=== PATIENT | female | born 1930 | race Caucasian/White ===

== ENCOUNTER 2018-09-14 09:27 | Emergency (ER) | payer MEDICARE, BC ==
--- NOTE | 2018-09-14 10:08 | ER Document Report ---
ED General - General Chief Complaint: Low Blood Pressure Stated Complaint: BLOOD PRESSURE PROBLEM Time Seen by Provider: 09/14/18 10:07 Primary Care Provider: MIKO LAM MD [Primary Care Provider] - Follow up as needed Notes: 87-year-old female patient sent over from pain management clinic for evaluation of cysts and hypotension. Patient on a fentanyl patch, oral pain medication. Has been feeling well for couple of days. Blood pressure was 75/40 and was diaphoretic in the office. Dr. Carroll sent her to the emergency department for urgent evaluation. Patient states that she has chronic pain. 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 Denies any worsening chest pain at this time. No cough. Does state that she may have a little bit of discomfort with urination. Chronic pain but at baseline. No other issues. Has a fentanyl patch on at this time. TRAVEL OUTSIDE OF THE [place] IN LAST 30 DAYS: No - HPI Onset: Just prior to arrival Onset/Duration: Gradual, Constant Quality of pain: Cramping Severity: Moderate - Related Data Allergies/Adverse Reactions: iodine Allergy (Verified 09/14/18 09:35) promethazine [From Phenergan] Allergy (Verified 09/14/18 09:35) Past Medical History - General Information source: Patient, Relative, [facility] Records - Social History Smoking Status: Never Smoker Frequency of alcohol use: None Drug Abuse: None Lives with: Family Family History: Reviewed & Not Pertinent Patient has suicidal ideation: No Patient has homicidal ideation: No - Past Medical History Cardiac Medical History: Reports: Hx Atrial Fibrillation, Hx Hypertension Renal/ Medical History: Denies: Hx Peritoneal Dialysis Musculoskeletal Medical History: Reports Hx Arthritis, Reports Hx Fibromyalgia Traumatic Medical History: Reports: Hx Fractures - lumbar spine - Immunizations Hx Diphtheria, Pertussis, Tetanus Vaccination: Yes Review of Systems - Review of Systems Notes: Constitutional: denies: Chills, Diaphoresis, Fever, Malaise, Weakness EENT: denies: Eye discharge, Blurred vision, Tearing, Double vision, Nose congestion, Nose discharge, Throat swelling, Mouth pain Cardiovascular: denies: Palpitations, Heart racing, Orthopnea, Dyspnea, Chest pain. + Hypotension Respiratory: denies: Cough, Hurts to breathe, Wheezing, Shortness of breath Gastrointestinal: denies: Abdominal pain, Diarrhea, Nausea, Vomiting, Black stools, bright red blood in stool Genitourinary: denies: Burning, Dysuria, Discharge, Frequency, Flank pain, Hematuria Musculoskeletal: denies: Joint pain, Joint swelling, Muscle pain, Muscle stiffness, + chronic back pain Hematologic/Lymphatic: denies: Anemia, Easy bleeding, Easy bruising, Blood clot s Neurological/Psychological: denies: Confusion, Dementia, Depression, Loss of consciousness Skin: No lesions, no masses, no skin breakdown, no abscesses. Diaphoresis reported Physical Exam - Vital signs Vitals: Temp Pulse Resp BP Pulse Ox 98.1 F 72 16 94/54 L 89 L 09/14/18 09:33 09/14/18 09:33 09/14/18 09:33 09/14/18 09:33 09/14/18 09:33 Interpretation: Hypotensive - General General appearance: Appears well, Alert - HEENT Head: Normocephalic, Atraumatic Eyes: Normal Pupils: PERRL Mucous membranes: Dry - Respiratory Respiratory status: No respiratory distress Chest status: Nontender Breath sounds: Normal Chest palpation: Normal - Cardiovascular Rhythm: Regular Heart sounds: Normal auscultation Murmur: No - Abdominal Inspection: Normal Distension: No distension Bowel sounds: Normal Tenderness: Nontender Organomegaly: No organomegaly - Back Back: Normal, Nontender - Extremities General upper extremity: Normal inspection, Nontender, Normal color, Normal ROM, Normal temperature General lower extremity: Normal inspection, Nontender, Normal color, Normal ROM, Normal temperature, Normal weight bearing. No: Antonieta's sign - Neurological Neuro grossly intact: Yes Cognition: Normal Orientation: AAOx4 Whiting Coma Scale Eye Opening: Spontaneous Wh[place] Coma Scale Verbal: Oriented Wh[place] Coma Scale Motor: Obeys Commands Zenia Coma Scale Total: 15 Speech: Normal Motor strength normal: LUE, RUE, LLE, RLE Sensory: Normal - Psychological Associated symptoms: Normal affect, Normal mood - Skin Skin Temperature: Warm Skin Moisture: Dry Skin Color: Normal Course - Re-evaluation Re-evalutation: 09/14/18 12:06 With blood pressures in the 70s at the doctor's office. At bedside I recorded a blood pressure of 79/60 by my own taking. Patient has a paced ventricular rhythm with a heart rate of 70. We will need to do blood cultures, lactate, start on IV fluids, cardiac work-up. Septic work-up and possible admit. Bedside temperature orally was 98.0. 09/14/18 12:07 Laboratory 09/14/18 09/14/18 09/14/18 09:55 09:55 09:55 WBC 6.3 RBC 4.25 Hgb 12.6 Hct 38.5 MCV 91 MCH 29.8 MCHC 32.8 RDW 15.9 H Plt Count 198 Seg Neutrophils % 75.7 Lymphocytes % 14.5 Monocytes % 8.5 Eosinophils % 0.9 Basophils % 0.4 Absolute Neutrophils 4.8 Absolute Lymphocytes 0.9 Absolute Monocytes 0.5 Absolute Eosinophils 0.1 Absolute Basophils 0.0 Sodium 144.0 Potassium 4.6 Chloride 99 Carbon Dioxide 32 H Anion Gap 13 BUN 24 H Creatinine 0.81 Est GFR ( Amer) > 60 Est GFR (Non-Af Amer) > 60 Glucose 77 Calcium 9.9 Total Bilirubin 0.5 Direct Bilirubin 0.3 Neonat Total Bilirubin Not Reportable Neonat Direct Bilirubin Not Reportable Neonat Indirect Bili Not Reportable AST 24 ALT 14 Alkaline Phosphatase 67 Creatine Kinase 29 L CK-MB (CK-2) 0.62 Troponin I < 0.012 Total Protein 7.7 Albumin 4.4 09/14/18 13:55 Patient is been observed here for quite some time. Her labs are fairly unremarkable. She had some hypotension when she first arrived. Was a little dry. Patient received 2 L of normal saline. Was initially orthostatic but now her orthostatic vital signs are normal. She does not appear to be in any significant distress. Her lactic acid is within normal limits. Her urine is unremarkable. She has a normal WBC count. At this time likely her hypotension is due to the narcotics for which she is on and dehydration. I feel comfortable discharging at this time in stable condition. She is upright and eating and in no acute distress. - Vital Signs Vital signs: Temp Pulse Resp BP Pulse Ox 98.1 F 72 12 111/59 L 94 09/14/18 09:33 09/14/18 09:33 09/14/18 12:31 09/14/18 13:36 09/14/18 12:31 - Laboratory Result Diagrams: 09/14/18 09:55 09/14/18 09:55 Laboratory results interpreted by me: 09/14/18 09/14/18 09/14/18 09:55 09:55 11:59 RDW 15.9 H Carbon Dioxide 32 H BUN 24 H Creatine Kinase 29 L Ur Leukocyte Esterase TRACE H Urine Ascorbic Acid 40 H Discharge - Discharge Clinical Impression: Dehydration, Transient hypotension Condition: Good Disposition: HOME, SELF-CARE Instructions: Hypotension ([facility]), Orthostatic Hypotension ([facility]), Dehydration ([facility]) Additional Instructions: Please continue with your regular medications as prescribed. Increase your fluid intake. Follow-up with your regular doctors. Return for worsening symptoms or concerns. Referrals: MIKO LAM MD [Primary Care Provider] - Follow up as needed
[2018-09-14] MEDS: NORMAL SALINE 1000 ML 1,000 ML IV PRN ×2 (10:20→11:08)
[2018-09-14 10:39] LABS: ABSOLUTE EOSINOPHILS # (AUTO) 0.1 10^3/uL (0.0-0.6); ABSOLUTE LYMPHOCYTES (AUTO) 0.9 10^3/uL (0.5-4.7); ABSOLUTE MONOCYTES (AUTO) 0.5 10^3/uL (0.1-1.4); ABSOLUTE NEUT (AUTO) 4.8 10^3/uL (1.7-8.2); BASOPHILS % (AUTO) 0.4 % (0-2); EOSINOPHILS % (AUTO) 0.9 % (0-6); HEMATOCRIT 38.5 % (36.0-47.0); HEMOGLOBIN 12.6 g/dL (12.0-15.5); LYMPHOCYTES % (AUTO) 14.5 % (13-45); MEAN CORPUSCULAR HEMOGLOBIN 29.8 pg (27.0-33.4); MEAN CORPUSCULAR HGB CONC 32.8 g/dL (32.0-36.0); MEAN CORPUSCULAR VOLUME 91 fl (80-97); MONOCYTES % (AUTO) 8.5 % (3-13); PLATELET COUNT 198 10^3/uL (150-450); RED BLOOD COUNT 4.25 10^6/uL (3.72-5.28); RED CELL DISTRIBUTION WIDTH 15.9 % (11.5-14.0); SEGMENTED NEUTROPHILS % (AUTO) 75.7 % (42-78); TOTAL CELLS COUNTED % (AUTO) 100 %; WHITE BLOOD COUNT 6.3 10^3/uL (4.0-10.5)
[2018-09-14 10:46] LABS: ALANINE AMINOTRANSFERASE 14 U/L (9-52); ALBUMIN 4.4 g/dL (3.5-5.0); ALKALINE PHOSPHATASE 67 U/L (38-126); ANION GAP 13 (5-19); ASPARTATE AMINO TRANSFERASE 24 U/L (14-36); BILIRUBIN,DIRECT 0.3 mg/dL (0.0-0.4); BILIRUBIN,TOTAL 0.5 mg/dL (0.2-1.3); BLOOD UREA NITROGEN 24 mg/dL (7-20); CALCIUM 9.9 mg/dL (8.4-10.2); CARBON DIOXIDE 32 mmol/L (22-30); CHLORIDE 99 mmol/L (98-107); CREATINE KINASE 29 U/L (30-135); GLUCOSE 77 mg/dL (75-110); POTASSIUM 4.6 mmol/L (3.6-5.0); TOTAL PROTEIN 7.7 g/dL (6.3-8.2)
[2018-09-14 10:58] LABS: CREATINE KINASE MB 0.62 ng/mL (<4.55)
[2018-09-14 11:05] LABS: TROPONIN I < 0.012 ng/mL
--- NOTE | 2018-09-14 11:20 | RADIOLOGY REPORT (SQ) ---
EXAM DESCRIPTION: CHEST SINGLE VIEW COMPLETED DATE/TIME: 09/14/2018 11:05 am REASON FOR STUDY: cp COMPARISON: None. EXAM PARAMETERS: NUMBER OF VIEWS: One view. TECHNIQUE: Single frontal radiographic view of the chest acquired. RADIATION DOSE: NA LIMITATIONS: None. FINDINGS: LUNGS AND PLEURA: No opacities, masses or pneumothorax. No pleural effusion. MEDIASTINUM AND HILAR STRUCTURES: No masses. Contour normal. HEART AND VASCULAR STRUCTURES: Cardiomegaly status post median sternotomy with mitral valve prosthesi s, CABG markers, and left chest multi lead pacer. BONES: Chronic fracture deformity of the proximal right humerus. Status post left shoulder arthropla sty. HARDWARE: None in the chest. OTHER: No other significant finding. IMPRESSION: Cardiomegaly without acute abnormality of the lungs in AP projection. TECHNICAL DOCUMENTATION: JOB ID: [id number] [employer]- All Rights Reserved Reading location - IP/workstation name: [email or web address]
[2018-09-14 12:54] LABS: APPEARANCE,URINE CLEAR; BILIRUBIN,URINE NEGATIVE (NEGATIVE); COLOR,URINE YELLOW; GLUCOSE, URINE NEGATIVE (NEGATIVE); KETONES,URINE NEGATIVE (NEGATIVE); LEUKOCYTE ESTERASE,URINE TRACE (NEGATIVE); NITRITE,URINE NEGATIVE (NEGATIVE); PROTEIN,URINE NEGATIVE (NEGATIVE); URINE SPECIFIC GRAVITY 1.013; UROBILINOGEN,URINE NEGATIVE mg/dL (<2.0)
[2018-09-14 14:05] VITALS: BP 111/57
== END 2018-09-14 14:42 | disposition home or self-care (01) ==
LOC: ER 09:27
DX: E86.0 Dehydration (principal); I95.9 Hypotension, unspecified; R30.0 Dysuria; I48.91 Unspecified atrial fibrillation; I10 Essential (primary) hypertension; G89.29 Other chronic pain
CPT/HCPCS: 99283; 96360; 96361; 36415; 87040; 87086; 82553; 82962; 82550; 85025; 87088; 80053; 81001; 84484; 87186; 83605; 71045; J7030

== ENCOUNTER 2019-11-24 13:30 | Emergency (ER) | payer MEDICARE, BC ==
--- NOTE | 2019-11-24 14:23 | ER Document Report ---
ED General - General Chief Complaint: Back Pain Stated Complaint: SHOULDER PAIN Primary Care Provider: MIKO LAM MD [ACTIVE STAFF] - Follow up as needed Mode of Arrival: Medic Information source: Patient, Relative Notes: Patient is a 88-year-old female presenting to the emergency department chief complaint of back pain and constipation. Patient states she was seen about a week and a half ago at another local hospital for same condition and was unsatisfied with the findings and the care and is here for further evaluation and treatment. Patient states she has been dealing with chronic back pain for a number of years. She states that she does have pain management. Patient denies nausea vomiting diarrhea cough or cold type symptoms. TRAVEL OUTSIDE OF THE [place] IN LAST 30 DAYS: No - Related Data Allergies/Adverse Reactions: bacitracin [From Neosporin ([id number])] Allergy (Verified 11/24/19 14:13) cephalexin Allergy (Verified 11/24/19 14:13) ciprofloxacin [From Cipro] Allergy (Verified 11/24/19 14:13) desipramine [From Norpramin] Allergy (Verified 11/24/19 14:13) iodine Allergy (Verified 11/24/19 14:13) neomycin [From Neosporin ([id number])] Allergy (Verified 11/24/19 14:13) polymyxin B [From Neosporin ([id number])] Allergy (Verified 11/24/19 14:13) promethazine [From Phenergan] Allergy (Verified 11/24/19 14:13) Sulfa (Sulfonamide Antibiotics) Allergy (Verified 11/24/19 14:13) codeine Adverse Reaction (Verified 11/24/19 14:13) Past Medical History - Social History Smoking Status: Unknown if Ever Smoked Family History: Reviewed & Not Pertinent - Past Medical History Cardiac Medical History: Reports: Hx Atrial Fibrillation, Hx Congestive Heart Failure, Hx Hypertension Renal/ Medical History: Denies: Hx Peritoneal Dialysis Musculoskeletal Medical History: Reports Hx Arthritis, Reports Hx Fibromyalgia Traumatic Medical History: Reports: Hx Fractures - lumbar spine - Immunizations Hx Diphtheria, Pertussis, Tetanus Vaccination: Yes Review of Systems - Review of Systems Notes: REVIEW OF SYSTEMS: CONSTITUTIONAL : Denies fever, chills, or sweats. Denies recent illness. EENT: Denies eye, ear, throat, or mouth pain or symptoms. Denies nasal or sinus congestion. CARDIOVASCULAR: Denies chest pain. RESPIRATORY: Denies cough, cold, or chest congestion. Denies shortness of breath, difficulty breathing, or wheezing. GASTROINTESTINAL: Denies abdominal pain. Denies nausea, vomiting, or diarrhea. Denies constipation. GENITOURINARY: Denies difficulty urinating, painful urination, burning, frequency, or blood in urine. MUSCULOSKELETAL: Denies neck or back pain or joint pain or swelling. SKIN: Denies rash or skin lesions. HEMATOLOGIC : Denies easy bruising or bleeding. NEUROLOGICAL: Denies altered mental status or loss of consciousness. Denies headache. Denies weakness or paralysis or loss of use of either side. Denies problems with gait or speech. Denies sensory or motor loss. PSYCHIATRIC: Denies suicidal or homicidal ideations 10 Systems are negative unless otherwise specified above Physical Exam - Vital signs Vitals: Temp Pulse Resp BP Pulse Ox 98.5 F 73 16 114/58 L 94 11/24/19 14:08 11/24/19 14:08 11/24/19 14:08 11/24/19 14:08 11/24/19 14:08 - Notes Notes: PHYSICAL EXAMINATION: GENERAL: Well-appearing, well-nourished and in no acute distress. HEAD: Atraumatic, normocephalic. EYES: Pupils equal round and reactive to light, extraocular movements intact, sclera anicteric, conjunctiva are normal. ENT: nares patent, oropharynx clear without exudates. Moist mucous membranes. NECK: Normal range of motion, supple without lymphadenopathy, no appreciable JVD LUNGS: Lungs clear to auscultation bilaterally and equal. No wheezes rales or rhonchi. HEART: Regular rate and rhythm without murmurs ABDOMEN: Soft, nontender, normal bowel sounds. No guarding, no rebound. No masses appreciated. EXTREMITIES: Active full range of motion, no pitting or edema. No cyanosis. 2+ pulses x4 NEUROLOGICAL: No focal neurological deficits. Moves all extremities spontaneously and on command. SKIN: Warm, Dry, and intact. Normal turgor, no rashes or lesions noted. Course - Re-evaluation Re-evalutation: 11/24/19 20:15 Patient has been maintained on a turn supervisor while in emergency department. The patient is remained stable without major decompensation. There was questionable small bowel obstruction on the acute abdominal series and recommendation was to have a CAT scan performed which was done which shows no signs of small bowel obstruction. I did discuss with the patient and her family the chronic nature of her back pain and the fact that since she is on a pain management contract no new narcotic prescriptions will be dispensed at this time. I recommend that the patient follow-up with her family physician and/or an orthopedist to address the chronic back issues. Patient is stable at time of discharge. - Vital Signs Vital signs: Temp Pulse Resp BP Pulse Ox 98.5 F 73 16 114/58 L 94 11/24/19 14:08 11/24/19 14:08 11/24/19 14:08 11/24/19 14:08 11/24/19 14:08 - Laboratory Result Diagrams: 11/24/19 13:47 11/24/19 13:47 Laboratory results interpreted by me: 11/24/19 11/24/19 13:47 14:44 RBC 3.69 L MCV 98 H RDW 19.8 H Lymph % (Auto) 10.8 L Seg Neutrophils % 80.0 H Urine Ascorbic Acid 20 H - Diagnostic Test Radiology reviewed: Reports reviewed Discharge - Discharge Clinical Impression: Chronic back pain Qualifiers: Back pain location: back pain in unspecified location Back pain laterality: bilateral Qualified Code(s): M54.9 - Dorsalgia, unspecified; G89.29 - Other chronic pain Constipation Qualifiers: Constipation type: slow transit constipation Qualified Code(s): K59.01 - Slow transit constipation Condition: Stable Disposition: HOME, SELF-CARE Instructions: Low Back Pain ([facility]), Muscle Strain ([facility]) Additional Instructions: ABDOMINAL PAIN: There are many causes of abdominal pain. Pain can mean a serious problem r equiring surgery (such as appendicitis). It can also be an innocent problem that goes away on its own (such as a viral infection). Often, time must pass to determine the cause of pain. The physician does not feel that hospitalization is necessary, at present. Things may change within the next 24 hours. Call the doctor or come back for re- examination if any problems occur, such as: (1) Pain that becomes more severe, steady, or becomes concentrated in one specific area. Also, pain that is more severe with movement or coughing. (2) Vomiting that persists or becomes more frequent. (3) Blood in the vomitus, urine, or bowel movements. Blood in the stool may have a tarry or black appearance. (4) Shaking chills or fever greater than 100 degrees F. (5) The abdomen becomes more distended or swollen. (6) Bowel movements cease. (7) Failure to improve as expected. NORMAL EXAM AND WORKUP: At this time, your examination and workup show no significant abnormality. No significant abnormal physical findings are noted. All laboratory, EKG, and imaging (x-ray, CT scans, ultrasound) studies that were ordered show no significant abnormality. Although your examination and all studies that were ordered showed no significant abnormal finding, there are no examinations and no studies that are 100% accurate. There is always the possibility that some abnormality could exist and not be detected with physical examination or within the limits and capabilities of laboratory and other studies. You should return or follow up as you were instructed on your visit today for further evaluation if your symptoms do not resolve. CONSTIPATION: Constipation is a common problem. It is especially likely as you get older. Constipation is a common cause of abdominal pain, but sometimes causes no symptoms at all. Causes of constipation include certain medications, dehydration, diets, inactivity, and low-fiber intake. Rarely, it can be a symptom of underlying disease. The physician has evaluated you for this. Avoid constipation by eating a diet high in fiber, fruits, and vegetables. Drink plenty of liquids. Get regular exercise. If possible, avoid constipating medicines like narcotic pain medication. Some vitamin tablets can cause constipation. Stool softeners may be needed for difficult cases. An excellent stool softener is Konsyl which is available at [place], and [place] drug store. Just add a teaspoon to a glass of pineapple or orange juice daily or twice a day if needed. Laxatives are useful for occasional constipation. You should use them only when necessary. Too-frequent use can make your bowels dependent on them. Some over the counter laxatives available without prescription are: Milk of Magnesia, 1-2 tablespoons twice a day Dulcolax, 5 mg pill or 10 mg suppository. Citrate of Magnesia, 4-5 ounces a day for a day or two For acute constipation, Fleet's Enemas and Dulcolax suppositories are helpful. Chronic, intermediate accountant use of laxatives or enemas is not a good idea. Your bowel may become dependant on them. You do not need to have a bowel movement every day. Many people do fine with a bowel movement every three or four days. You should call your doctor or return for re-evaluation if you pass blood in the stool, or if you develop fever or increasing abdominal pain. BULK LAXATIVES: Bulk laxatives make the stool softer and bulkier. They're useful for preventing constipation. You can choose between psyllium, methylcellulose, and polycarbophil. They are available without a prescription. Psyllium brand names include Konsyl, Metamucil, Perdiem, Effer-Syllium and Hydrocil. It's available as powder, flavored drink powder, or chewable. The usual dose of psyllium powder is one heaping teaspoon in water each morning, inc reasing to twice a day if needed. [place] juice can disguise the slightly grainy texture. Methylcellulose is marketed as Citrucel and other brands. The average dose is two grams in a cup of water one to three times a day. Polycarbophil is marketed as Fiber-Con. Take two tablets with a cup of water one to three times a day. LAXATIVE: A laxative agent has been prescribed for your condition. This should result in passage of stool within 12 hours. Some mild intestinal cramping is common as the hard stool begins to move. You may have loose or runny stools for a short time. Contact your doctor if there is severe cramping, vomiting, or passage of blood. Return for further care if this medicine fails to improve your condition. FOLLOW-UP CARE: If you have been referred to a physician for follow-up care, call the physicians office for an appointment as you were instructed or within the next two days. If you experience worsening or a significant change in your symptoms, notify the physician immediately or return to the Emergency Department at any time for re-evaluation. Referrals: MIKO LAM MD [ACTIVE STAFF] - Follow up as needed
[2019-11-24 15:14] LABS: APPEARANCE,URINE SLIGHTLY-CLOUDY; BILIRUBIN,URINE NEGATIVE (NEGATIVE); COLOR,URINE YELLOW; GLUCOSE, URINE NEGATIVE (NEGATIVE); KETONES,URINE NEGATIVE (NEGATIVE); LEUKOCYTE ESTERASE,URINE NEGATIVE (NEGATIVE); NITRITE,URINE NEGATIVE (NEGATIVE); PROTEIN,URINE NEGATIVE (NEGATIVE); URINE SPECIFIC GRAVITY 1.011; UROBILINOGEN,URINE NEGATIVE mg/dL (<2.0)
[2019-11-24 15:25] LABS: ABSOLUTE EOSINOPHILS # (AUTO) 0.1 10^3/uL (0.0-0.6); ABSOLUTE LYMPHOCYTES (AUTO) 0.7 10^3/uL (0.5-4.7); ABSOLUTE MONOCYTES (AUTO) 0.5 10^3/uL (0.1-1.4); ABSOLUTE NEUT (AUTO) 4.9 10^3/uL (1.7-8.2); BASOPHILS % (AUTO) 0.4 % (0-2); EOSINOPHILS % (AUTO) 1.3 % (0-6); LYMPHOCYTES % (AUTO) 10.8 % (13-45); MEAN CORPUSCULAR HEMOGLOBIN 32.5 pg (27.0-33.4); MEAN CORPUSCULAR HGB CONC 33.4 g/dL (32.0-36.0); MEAN CORPUSCULAR VOLUME 98 fl (80-97); MONOCYTES % (AUTO) 7.5 % (3-13); PLATELET COUNT 221 10^3/uL (150-450); RED BLOOD COUNT 3.69 10^6/uL (3.72-5.28); RED CELL DISTRIBUTION WIDTH 19.8 % (11.5-14.0); TOTAL CELLS COUNTED % (AUTO) 100 %; WHITE BLOOD COUNT 6.1 10^3/uL (4.0-10.5)
[2019-11-24 15:34] LABS: ANION GAP 7 (5-19); BLOOD UREA NITROGEN 13 mg/dL (7-20); CALCIUM 8.8 mg/dL (8.4-10.2); CARBON DIOXIDE 30 mmol/L (22-30); CHLORIDE 101 mmol/L (98-107); GLUCOSE 91 mg/dL (75-110); POTASSIUM 4.5 mmol/L (3.6-5.0)
[2019-11-24] MEDS ORDERED: OXYCODONE-ACETAMINOPHEN 5-325 MG TABLET PO ONE ×2 (16:04→20:17)
--- NOTE | 2019-11-24 16:40 | RADIOLOGY REPORT (SQ) ---
EXAM DESCRIPTION: T SPINE AP/LAT IMAGES COMPLETED DATE/TIME: 11/24/2019 4:00 pm REASON FOR STUDY: pain COMPARISON: None. NUMBER OF VIEWS: Two views. TECHNIQUE: AP and lateral radiographic images acquired of the thoracic spine. LIMITATIONS: None. FINDINGS: MINERALIZATION: Osteopenia. ALIGNMENT: Mild dextroconvex lateral curvature may be due in part to positioning or muscle spasm. VERTEBRAE: Age-indeterminate compression injury of the T11 vertebral body. Mild loss of T9 and T10 v ertebral body heights as well. DISCS: Multilevel disc space narrowing with osteophytes. HARDWARE: None in the spine. MEDIASTINUM AND SOFT TISSUES: Normal heart size and aortic contour. No soft tissue abnormality. VISUALIZED LUNG WAGONER: Clear. OTHER: Midline surgical changes and partially imaged transvenous pacer. IMPRESSION: Osteopenia. Age-indeterminate mild compression deformity of the T11 vertebral body with the appearance of mild wedging of the T9 and T10 vertebral bodies as well. TECHNICAL DOCUMENTATION: JOB ID: [id number] 2010 [email or web address]- All Rights Reserved Reading location - IP/workstation name: [email or web address]
--- NOTE | 2019-11-24 16:44 | RADIOLOGY REPORT (SQ) ---
EXAM DESCRIPTION: L SPINE WHOLE IMAGES COMPLETED DATE/TIME: 11/24/2019 4:00 pm REASON FOR STUDY: pain COMPARISON: None. NUMBER OF VIEWS: Five views including obliques. TECHNIQUE: AP, lateral, oblique, and sacral radiographic images acquired of the lumbar spine. LIMITATIONS: None. FINDINGS: MINERALIZATION: Osteopenia. SEGMENTATION: Normal. No transitional anatomy. ALIGNMENT: Dextroconvex lateral curvature centered at the L2 level. VERTEBRAE: Difficult to assess due to osteopenia and scoliotic curvature. There is an age-indetermin ate compression fracture of the L1 vertebral body with a mild compression deformity of the T11 verteb ral body. DISCS: Multilevel disc space narrowing with osteophytes. POSTERIOR ELEMENTS: Facet arthropathy is present. No discrete evidence of pars interarticularis defe ct. HARDWARE: None in the spine. PARASPINAL SOFT TISSUES: Normal. PELVIS: Intact as visualized. No fractures or worrisome bone lesions. SI joints intact. OTHER: No other significant finding. IMPRESSION: Osteopenia. Age indeterminate compression deformity of the L1 and T11 vertebral bodies. The lower lumbar vertebral bodies are difficult to assess due to degree of osteopenia and the prese nt scoliotic curvature. If significant clinical concern for osseous injury, recommend noncontrast CT imaging for improved osseous characterization. TECHNICAL DOCUMENTATION: JOB ID: [id number] 2010 [employer]- All Rights Reserved Reading location - IP/workstation name: [email or web address]
--- NOTE | 2019-11-24 16:52 | RADIOLOGY REPORT (SQ) ---
EXAM DESCRIPTION: ACUTE ABDOMEN SERIES IMAGES COMPLETED DATE/TIME: 11/24/2019 4:00 pm REASON FOR STUDY: pain COMPARISON: 04/24/2012 and 09/14/2018 NUMBER OF VIEWS: Four views. TECHNIQUE: Frontal chest, supine abdomen and upright/decubitus abdomen radiographic images acquired. LIMITATIONS: None. FINDINGS: CHEST: No focal consolidation, pleural effusion, or pneumothorax. Mild cardiomegaly witho ut central vascular congestion. Midline surgical changes in transvenous pacer. FREE AIR: No pneumoperitoneum. BOWEL GAS PATTERN: Gas is seen within multiple mildly prominent loops of small bowel with few scatter ed air-fluid levels. Gas and stool are seen to the level of the rectum without evidence of high-grad e obstruction. CALCIFICATIONS: No suspicious calcifications. HARDWARE: None in the abdomen. SOFT TISSUES: No gross mass or suggestion of organomegaly. BONES: Chronic right humeral neck fracture. Status post left shoulder arthroplasty. OTHER: No other significant finding. IMPRESSION: 1. Mildly prominent loops of gas and fluid filled small bowel noting what appears to be a focal collection within the right lower quadrant on supine imaging, concerning for developing smal l bowel obstruction. Consider CT imaging of the abdomen and pelvis for further characterization. 2. Right humerus fracture is similar to that seen on 2013 radiographs. TECHNICAL DOCUMENTATION: JOB ID: [id number] 2010 [employer]- All Rights Reserved Reading location - IP/workstation name: [email or web address]
[2019-11-24] MEDS ORDERED: DIPHENHYDRAMINE HCL 50 MG/ML VIAL IV ONE (17:29)
[2019-11-24] MEDS ORDERED: METHYLPREDNISOLONE INJ 125 MG/2 ML SDV IV ONE (17:30)
--- NOTE | 2019-11-24 19:48 | RADIOLOGY REPORT (SQ) ---
EXAM DESCRIPTION: CT ABD/PELVIS WITH IV ONLY IMAGES COMPLETED DATE/TIME: 11/24/2019 7:29 pm REASON FOR STUDY: SBO? COMPARISON: None. TECHNIQUE: CT scan of the abdomen and pelvis performed using helical scanning technique with dynamic intravenous contrast injection. No oral contrast. Images reviewed with lung, soft tissue, and bone windows. Reconstructed coronal and sagittal MPR images reviewed. Delayed images for evaluation of the urinary system also acquired. All images stored on PACS. All CT scanners at this facility use dose modulation, iterative reconstruction, and/or weight based d osing when appropriate to reduce radiation dose to as low as reasonably achievable (ALARA). [facility]: Dose Right [facility]: CareDose [facility]: Dose Right [facility]: Teradose 4D [facility]: [employer] CONTRAST TYPE AND DOSE: contrast/concentration: Isovue 350.00 mmol/ml; Total Contrast Delivered: 88. 0 ml; Total Saline Delivered: 72.0 ml RENAL FUNCTION: GFR > 60. RADIATION DOSE: CT Rad equipment meets quality standard of care and radiation dose reduction techniq ues were employed. CTDIvol: 18.2 - 20.6 mGy. DLP: 2149 mGy-cm.. LIMITATIONS: Motion. FINDINGS: LOWER CHEST: Prosthetic mitral valve. Pacemaker. LIVER: Normal size. No masses. Fatty change. No dilated ducts. SPLEEN: Normal size. No focal lesions. PANCREAS: No masses. No significant calcifications. No adjacent inflammation or peripancreatic fluid collections. Pancreatic duct not dilated. GALLBLADDER: No identified stones by CT criteria. No inflammatory changes to suggest cholecystitis. ADRENAL GLANDS: No significant masses or asymmetry. RIGHT KIDNEY AND URETER: No solid masses. 7 mm lower pole stone. No hydronephrosis or hydroureter . LEFT KIDNEY AND URETER: No solid masses. No significant calcifications. No hydronephrosis or hydr oureter. AORTA AND VESSELS: No aneurysm. RETROPERITONEUM: No retroperitoneal adenopathy, hemorrhage or masses. BOWEL AND PERITONEAL CAVITY: No masses or inflammatory changes. No free fluid or peritoneal masses. APPENDIX: Not visualized. PELVIS: No mass. No free fluid. Normal bladder. ABDOMINAL WALL: Small fat containing umbilical hernia. BONES: Several compression fractures, most notable at L 4. All appear chronic without significant re tropulsion. OTHER: No other significant finding. IMPRESSION: No acute findings. Chronic compression fractures. Nonobstructing stone right kidney. TECHNICAL DOCUMENTATION: JOB ID: [id number] Quality ID # [id number]: Final reports with documentation of one or more dose reduction techniques (e.g., Au tomated exposure control, adjustment of the mA and/or kV according to patient size, use of iterative reconstruction technique) 2010 [employer]- All Rights Reserved Reading location - IP/workstation name: [email or web address]
[2019-11-24 20:52] VITALS: BP 142/74
== END 2019-11-24 20:58 | disposition home or self-care (01) ==
LOC: ER 13:30
DX: K59.01 Slow transit constipation (principal); M54.9 Dorsalgia, unspecified; G89.29 Other chronic pain; Z88.8 Allergy status to other drugs, medicaments and biological substances; Z88.1 Allergy status to other antibiotic agents; Z88.2 Allergy status to sulfonamides; I48.91 Unspecified atrial fibrillation; I50.9 Heart failure, unspecified; I11.0 Hypertensive heart disease with heart failure
CPT/HCPCS: 99285; 96374; 96375; 36415; 85025; 80048; 81001; 74022; 72110; 72070; 74177; J1200; J2930; A9270

== ENCOUNTER 2019-12-27 16:44 | Emergency (ER) | payer MEDICARE, BC ==
--- NOTE | 2019-12-27 17:51 | ER Document Report ---
ED Medical Screen (RME) - General Chief Complaint: Pain All Over Stated Complaint: BACK PAIN Time Seen by Provider: 12/27/19 17:43 Primary Care Provider: AMY LOVETT MD [Primary Care Provider] - Follow up as needed Mode of Arrival: Medic Information source: Patient, Relative Notes: 89-year-old female presents to ED for complaint of pain abdomen chest ribs back. According to her sister she has had pain and been sick for couple months. She states she been hurting all over. Couple weeks ago she was admitted to [facility] and had multiple test and was discharged. She states she is actually gotten much worse over the last week. She states she is going to the bathroom very frequently her sister is with her and she states she is going to the bathroom much more frequent than usual she states her primary care doctor is Dr. Lovett. States she has no nausea or vomiting she does have extensive medical history. I have greeted and performed a rapid initial assessment of this patient. A comprehensive ED assessment and evaluation of the patient, analysis of test results and completion of medical decision making process will be conducted by an additional ED providers. TRAVEL OUTSIDE OF THE [place] IN LAST 30 DAYS: No - Related Data Allergies/Adverse Reactions: bacitracin [From Neosporin ([id number])] Allergy (Verified 12/02/19 11:25) cephalexin Allergy (Verified 12/02/19 11:25) ciprofloxacin [From Cipro] Allergy (Verified 12/02/19 11:25) desipramine [From Norpramin] Allergy (Verified 12/02/19 11:25) Iodinated Contrast Media [Iodinated Contrast- Oral and IV Dye] Allergy (Verified 12/02/19 11:25) iodine Allergy (Verified 12/02/19 11:25) miconazole [From Neosporin AF] Allergy (Verified 12/02/19 11:25) neomycin [From Neosporin ([id number]-cys-[id number])] Allergy (Verified 12/02/19 11:25) polymyxin B [From Neosporin (nfu-mnz-tcxam)] Allergy (Verified 12/02/19 11:25) promethazine [From Phenergan] Allergy (Verified 12/02/19 11:25) Sulfa (Sulfonamide Antibiotics) Allergy (Verified 12/02/19 11:25) codeine Adverse Reaction (Verified 12/02/19 11:25) Past Medical History - Past Medical History Cardiac Medical History: Reports: Hx Atrial Fibrillation, Hx Congestive Heart Failure, Hx Coronary Artery Disease - HIGH CHOLESTEROL, Hx Heart Attack, Hx Hypertension Pulmonary Medical History: Reports: Hx Bronchitis Denies: Hx Asthma, Hx COPD, Hx Pneumonia Neurological Medical History: Denies: Hx Cerebrovascular Accident, Hx Seizures Renal/ Medical History: Denies: Hx Peritoneal Dialysis Musculoskeltal Medical History: Reports Hx Arthritis, Reports Hx Fibromyalgia Traumatic Medical History: Reports: Hx Fractures - lumbar spine - Immunizations Hx Diphtheria, Pertussis, Tetanus Vaccination: Yes Physical Exam - Vital signs Vitals: Temp Pulse BP Pulse Ox 98.1 F 70 113/93 H 90 L 12/27/19 17:04 12/27/19 17:04 12/27/19 17:04 12/27/19 17:04 Course - Vital Signs Vital signs: Temp Pulse Resp BP Pulse Ox 98.1 F 70 113/93 H 90 L 12/27/19 17:04 12/27/19 17:04 12/27/19 17:04 12/27/19 17:04 Doctor's Discharge - Discharge Referrals: AMY LOVETT MD [Primary Care Provider] - Follow up as needed
--- NOTE | 2019-12-27 18:30 | RADIOLOGY REPORT (SQ) ---
EXAM DESCRIPTION: CHEST 2 VIEWS IMAGES COMPLETED DATE/TIME: 12/27/2019 6:08 pm REASON FOR STUDY: Rib pain chest pain abdomen pain back pain COMPARISON: 09/14/2018. EXAM PARAMETERS: NUMBER OF VIEWS: two views TECHNIQUE: Digital Frontal and Lateral radiographic views of the chest acquired. RADIATION DOSE: NA LIMITATIONS: none FINDINGS: LUNGS AND PLEURA: No opacities, masses or pneumothorax. No pleural effusion. MEDIASTINUM AND HILAR STRUCTURES: No masses or contour abnormalities. HEART AND VASCULAR STRUCTURES: Heart normal size. No evidence for failure. BONES: No acute findings. 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 HARDWARE: Sternotomy wires, coronary bypass markers, prosthetic valve, and pacemaker. Left shoulder hardware. OTHER: No other significant finding. IMPRESSION: NO ACUTE RADIOGRAPHIC FINDING IN THE CHEST. TECHNICAL DOCUMENTATION: JOB ID: [id number] 2010 [employer]- All Rights Reserved Reading location - IP/workstation name: [email or web address]
[2019-12-27 18:55] LABS: ABSOLUTE EOSINOPHILS # (AUTO) 0.1 10^3/uL (0.0-0.6); ABSOLUTE LYMPHOCYTES (AUTO) 0.9 10^3/uL (0.5-4.7); ABSOLUTE MONOCYTES (AUTO) 0.6 10^3/uL (0.1-1.4); ABSOLUTE NEUT (AUTO) 5.8 10^3/uL (1.7-8.2); BASOPHILS % (AUTO) 0.2 % (0-2); EOSINOPHILS % (AUTO) 1.1 % (0-6); HEMATOCRIT 41.5 % (36.0-47.0); HEMOGLOBIN 13.7 g/dL (12.0-15.5); LYMPHOCYTES % (AUTO) 11.9 % (13-45); MEAN CORPUSCULAR HGB CONC 33.1 g/dL (32.0-36.0); MEAN CORPUSCULAR VOLUME 100 fl (80-97); MONOCYTES % (AUTO) 8.3 % (3-13); PLATELET COUNT 212 10^3/uL (150-450); RED BLOOD COUNT 4.17 10^6/uL (3.72-5.28); RED CELL DISTRIBUTION WIDTH 16.6 % (11.5-14.0); SEGMENTED NEUTROPHILS % (AUTO) 78.5 % (42-78); TOTAL CELLS COUNTED % (AUTO) 100 %; WHITE BLOOD COUNT 7.4 10^3/uL (4.0-10.5)
[2019-12-27 18:55] LABS: APPEARANCE,URINE CLEAR; BILIRUBIN,URINE NEGATIVE (NEGATIVE); COLOR,URINE YELLOW; GLUCOSE, URINE NEGATIVE (NEGATIVE); KETONES,URINE NEGATIVE (NEGATIVE); LEUKOCYTE ESTERASE,URINE NEGATIVE (NEGATIVE); NITRITE,URINE NEGATIVE (NEGATIVE); PROTEIN,URINE NEGATIVE (NEGATIVE); URINE SPECIFIC GRAVITY 1.023
[2019-12-27 19:04] LABS: PROTHROMBIN TIME 13.4 SEC (11.4-15.4)
[2019-12-27 19:12] LABS: ALBUMIN 4.3 g/dL (3.5-5.0); ALKALINE PHOSPHATASE 99 U/L (38-126); ANION GAP 8 (5-19); ASPARTATE AMINO TRANSFERASE 23 U/L (14-36); BILIRUBIN,DIRECT 0.4 mg/dL (0.0-0.4); BILIRUBIN,TOTAL 0.7 mg/dL (0.2-1.3); BLOOD UREA NITROGEN 17 mg/dL (7-20); CALCIUM 9.5 mg/dL (8.4-10.2); CARBON DIOXIDE 34 mmol/L (22-30); CHLORIDE 97 mmol/L (98-107); GLUCOSE 114 mg/dL (75-110); POTASSIUM 4.2 mmol/L (3.6-5.0); TOTAL PROTEIN 7.3 g/dL (6.3-8.2)
[2019-12-27] MEDS ORDERED: ACETAMINOPHEN 325 MG TABLET PO ONE (19:16)
--- NOTE | 2019-12-27 21:34 | ER Document Report ---
ED General - General Chief Complaint: Pain All Over Stated Complaint: BACK PAIN Time Seen by Provider: 12/27/19 17:43 Primary Care Provider: AMY HERNÁNDEZ MD [Primary Care Provider] - Follow up as needed Mode of Arrival: Medic TRAVEL OUTSIDE OF THE [place] IN LAST 30 DAYS: No - HPI Notes: 89-year-old female presents with pain. Patient states that she has a chronic pain in multiple areas, states that she has had fibromyalgia for 40 years, "pain is not new". Patient states that she has pain in her right shoulder, it is from an old fracture, she is not eligible for surgery due to her heart. She also states bilateral hip pain, which feels like a squeezing sensation, worse when she sits or stands. She is additionally having pain to the right side of her chest, states that it radiates to her breast and to her ribs, sometimes up to her neck. Patient states that she came to the emergency department today because her pain was not relieved by her usual pain medication, she states that she has pain meds that she can take every 5 hours, took it today. Patient additionally states that she has "heart problems", that her "heart is not good". She denies any chest pain currently. She states that because of the pain, she has shortness of breath and wheezing. Cough with some yellow phlegm as well. Due to the pain, she states she is mostly just been laying around for weeks. She takes an aspirin daily, no other blood thinners. She also reports a history of an aortic aneurysm, she states that she had it evaluated a few weeks ago. She states that she has been told cannot do anything about it, she undergoes surveillance. She states that she has a CPAP machine, she does not wear oxygen chronically, but oxygen helps. She additionally states that she was recently admitted in [place] and the conclusion was the same. Patient has an iodine allergy noted. Addressed this with her. She states that she once had itchy eyes. She states that she has had eye multiple times and has not had that reaction recently. She typically receives a Benadryl before scan. - Related Data Allergies/Adverse Reactions: bacitracin [From Neosporin ([id number]-[id number])] Allergy (Verified 12/02/19 11:25) cephalexin Allergy (Verified 12/02/19 11:25) ciprofloxacin [From Cipro] Allergy (Verified 12/02/19 11:25) desipramine [From Norpramin] Allergy (Verified 12/02/19 11:25) iodine Allergy (Verified 12/02/19 11:25) miconazole [From Neosporin AF] Allergy (Verified 12/02/19 11:25) neomycin [From Neosporin ([id number]-zhs-jwrzk)] Allergy (Verified 12/02/19 11:25) polymyxin B [From Neosporin (hwj-sfa-izexm)] Allergy (Verified 12/02/19 11:25) promethazine [From Phenergan] Allergy (Verified 12/02/19 11:25) Sulfa (Sulfonamide Antibiotics) Allergy (Verified 12/02/19 11:25) codeine Adverse Reaction (Verified 12/02/19 11:25) Iodinated Contrast Media [Iodinated Contrast- Oral and IV Dye] Adverse Reaction (Verified 12/27/19 21:53) Home Medications: centrum, d3, aspirin, carafate, trazodone, potassium, omeprazole, duloxetine, magnesium, biotin, gabapentin, fentanyl patch, vit c, simvastatin, entresto, metoprolol, furosemide, isosorbide Past Medical History - General Information source: Patient, Relative - Social History Smoking Status: Never Smoker Chew tobacco use (# tins/day): No Frequency of alcohol use: None Drug Abuse: None Family History: Reviewed & Not Pertinent - Past Medical History Cardiac Medical History: Reports: Hx Atrial Fibrillation, Hx Congestive Heart Failure, Hx Coronary Artery Disease - HIGH CHOLESTEROL, Hx Heart Attack, Hx Hypertension Pulmonary Medical History: Reports: Hx Bronchitis Denies: Hx Asthma, Hx COPD, Hx Pneumonia Neurological Medical History: Denies: Hx Cerebrovascular Accident, Hx Seizures Renal/ Medical History: Denies: Hx Peritoneal Dialysis Musculoskeletal Medical History: Reports Hx Arthritis, Reports Hx Fibromyalgia Traumatic Medical History: Reports: Hx Fractures - lumbar spine - Immunizations Hx Diphtheria, Pertussis, Tetanus Vaccination: Yes Hx Pneumococcal Vaccination: 04/06/14 Review of Systems - Review of Systems Constitutional: denies: Fever EENT: No symptoms reported Cardiovascular: denies: Chest pain Respiratory: Short of breath Gastrointestinal: denies: Abdominal pain Genitourinary: Frequency Musculoskeletal: Back pain, Joint pain, Muscle pain Skin: No symptoms reported Neurological/Psychological: denies: Headaches Physical Exam - Vital signs Vitals: Temp Pulse BP Pulse Ox 98.1 F 70 113/93 H 90 L 12/27/19 17:04 12/27/19 17:04 12/27/19 17:04 12/27/19 17:04 - General General appearance: Appears well, Alert In distress: None - HEENT Head: Normocephalic, Atraumatic Extraocular movements intact: Yes Pupils: PERRL Neck: Normal - Respiratory Respiratory status: No respiratory distress Chest status: Tender - Generalized wherever palpated Breath sounds: Other - Diminished at bases - Cardiovascular Rhythm: Regular Murmur: Yes Normal capillary refill: Yes - Abdominal Inspection: Obese Distension: No distension Tenderness: Nontender - Extremities General lower extremity: Other - Tenderness to essentially all areas palpated. No: Edema - Neurological Neuro grossly intact: Yes Cognition: Normal Orientation: AAOx4 Motor strength normal: LUE, RUE, LLE, RLE Sensory: Normal - Psychological Associated symptoms: Normal affect - Skin Skin Temperature: Warm Notes: No erythema or swelling to right breast Course - Re-evaluation Re-evalutation: 89-year-old female here for main complaint of pain, chronic pain to multiple areas, on chronic opioid prescription for this. However most concerning is her reported shortness of breath and the description of the pain pattern in her chest. Given her immobility, I would be concerned that she has developed PE. Reviewed records, she has a known thoracic aortic aneurysm, if this is growing that could potentially be contributing her symptoms as well. CTA chest has been ordered to evaluate. She was given Benadryl for the side effect from the dye which she has experienced remotely in the past. She is not tachycardic, though she has a pace maker, not ICD, confirmed on chest x-ray. She is actually quite well-appearing in bed, resting comfortably, no acute distress. She does not appear to be overtly fluid overloaded, will obtain BNP. Sounds like she has ?PRN oxygen at home, 90 to 92% on room air, will start her on nasal cannula, currently no respiratory distress. Will trial low-dose of morphine to see if this helps with her pain while we continue our work-up. She had a laboratory evaluation done from the triage process, no marked abnormalities, troponin n egative. EKG has been ordered. 12/27/19 23:31 CTA is negative for PE. However her known aneurysm has grown in size, now 6.8 cm. Question if this is causing some sort of mass-effect causing the shortness of breath. Patient reference that she has been evaluated in [place] before, I have paged the cardiothoracic/vascular team at [facility] through the transfer center. 12/27/19 23:44 I discussed patient's presentation and CT findings with Dr. Guaman with cardiothoracic/vascular surgery at [facility]. He states that given the size, it would warrant repair, although not emergently. No extravasation is a good sign. However likely unable to take on her case there and not certain if she is an ideal operative candidate. Suggested I ask patient her surgical desires. Ultimately no transfer at this time. 12/27/19 23:49 Went in to discuss CT findings and conversation with Dr. Guaman with patient. Patient states that she sees Dr. Moore with [facility]. She states that she has been told before that she would not be a surgical candidate, her "heart wouldn't stand the surgery". Patient states that her pain has improved. 12/27/19 23:56 Will CTA chest dissection protocol 12/28/19 00:13 I discussed with our radiologist who read the per report, he states that he is able to see some of the aorta and there is currently no dissection, he will addend his report. Will cancel repeat CTA. 12/28/19 01:36 Troponin is negative x2 12/28/19 01:47 I wanted to update patient on all results. She currently voices no complaints. I again rediscussed with her the aneurysm. She again voices understanding that she knows that she is not a surgical candidate. I encouraged her to have very close follow-up with her primary care doctor and additionally call her an/syq 13 nav/c2 operator in the morning. Patient does not have a ride until the morning, she will be discharged at this time and remain in room until her ride can calm. She was discharged in stable condition. - Vital Signs Vital signs: Temp Pulse Resp BP Pulse Ox 98.7 F 69 17 143/64 H 98 12/27/19 19:40 12/27/19 19:40 12/28/19 00:00 12/27/19 22:28 12/28/19 00:00 - Laboratory Result Diagrams: 12/27/19 18:20 12/27/19 18:20 Laboratory results interpreted by me: 12/27/19 12/27/19 12/27/19 16:25 18:20 18:20 MCV 100 H RDW 16.6 H Lymph % (Auto) 11.9 L Seg Neutrophils % 78.5 H Chloride 97 L Carbon Dioxide 34 H Glucose 114 H NT-Pro-B Natriuret Pep Urine Urobilinogen 2.0 H Urine Ascorbic Acid 40 H 12/27/19 18:20 MCV RDW Lymph % (Auto) Seg Neutrophils % Chloride Carbon Dioxide Glucose NT-Pro-B Natriuret Pep 1710 H Urine Urobilinogen Urine Ascorbic Acid - Diagnostic Test Radiology reviewed: Image reviewed, Reports reviewed - EKG Interpretation by Me Additional EKG results interpreted by me: EKG is interpreted by me. Ventricular paced rhythm, rate 70s. Wide QRS as expected. No overt ST segment elevation. Discharge - Discharge Clinical Impression: Chronic pain Qualifiers: Chronic pain type: other chronic pain Qualified Code(s): G89.29 - Other chronic pain Thoracic aortic aneurysm (TAA) Qualifiers: Presence of rupture: without rupture Qualified Code(s): I71.2 - Thoracic aortic aneurysm, without rupture Condition: Stable Disposition: HOME, SELF-CARE Additional Instructions: Please have very close follow-up with your primary care doctor. Additionally please call your an/syq 13 nav/c2 operator in the morning to discuss results from today. Ret urn to the emergency department for any concerning worsening symptoms. Referrals: AMY HERNÁNDEZ MD [Primary Care Provider] - Follow up as needed
[2019-12-27] MEDS ORDERED: MORPHINE SULFATE 10 MG/ML INJ IV ONE ×2 (21:49→21:58)
[2019-12-27] MEDS ORDERED: DIPHENHYDRAMINE HCL 50 MG/ML VIAL IV ONE ×2 (21:49→21:58)
--- NOTE | 2019-12-27 23:20 | RADIOLOGY REPORT (SQ) ---
CLINICAL INDICATION: SOB, immobility, eval PE. also has >5cm TAA. . TECHNIQUE: CT arteriography was obtained of the chest with multiplanar MIP and/or 3-D angiographic reconstructions. This exam was performed according to our departmental dose-optimization program, which includes automated exposure control, adjustment of the mA and/or kV according to patient size and/or use of iterative reconstruction techniques. COMPARISON: November 13, 2014. CORRELATION: None. FINDINGS: Adequate contrast bolus. Average Hounsfield unit measurement within main pulmonary artery segment of 376. Artifact from venous opacification. There is no evidence of pulmonary embolus. Thoracic aorta is aneurysmally dilated measuring 6.8 cm anteroposteriorly, previously 5.8 cm. This is a surgical lesion by size criteria. It is not opacified by intravascular contrast. Vascular calcification. The heart is enlarged with postsurgical change. No pericardial effusion. No bulky mediastinal adenopathy. The lungs are grossly clear. No consolidation or edema. No effusion or pneumothorax. Chronic parenchymal changes. Visualized abdominal contents demonstrate nonobstructing nephrolithiasis. Possible choledocholithiasis, series 3 image 129. Visualized bones demonstrate age-appropriate osteoarthritis. Demineralization. Postsurgical change left shoulder. Old posttraumatic change right shoulder IMPRESSION: Artifact from the patient's arm. No evidence of pulmonary embolus. Aneurysm of the ascending thoracic aorta at 6.8 cm, previously 5.8 cm. This was and is a surgical lesion by size criteria. No evidence of extravasation. If the patient is a potential surgical candidate, then cardiothoracic surgery consult is advised.
[2019-12-27] MEDS ORDERED: NORMAL SALINE 250 ML IV ONE (23:59)
--- NOTE | 2019-12-28 01:40 | EKG REPORT ---
SEVERITY:- ABNORMAL ECG - AFIB/FLUTTER AND VENTRICULAR-PACED RHYTHM : Confirmed by: María Young MD 28-Dec-2019 01:39:38
[2019-12-28] MEDS ORDERED: MORPHINE SULFATE 10 MG/ML INJ IV ONE (06:45)
[2019-12-28 08:36] VITALS: BP 155/79
== END 2019-12-28 08:30 | disposition home or self-care (01) ==
LOC: ER 16:44
DX: G89.29 Other chronic pain (principal); M79.10 Myalgia, unspecified site; I71.2 Thoracic aortic aneurysm, without rupture; M54.9 Dorsalgia, unspecified; I48.91 Unspecified atrial fibrillation; I50.9 Heart failure, unspecified; I11.0 Hypertensive heart disease with heart failure; Z79.891 Long term (current) use of opiate analgesic; I25.2 Old myocardial infarction
CPT/HCPCS: 93005; 96376; 99285; 96374; 96375; 36415; 87086; 85025; 85610; 85730; 87088; 80053; 81001; 84484; 83880; 71046; 71275; 93010; A9270; J1200; J2270 ×2; J7050; 87186

== ENCOUNTER 2020-02-04 22:33 | Inpatient (IN) | payer MEDICARE, BC ==
--- NOTE | 2020-02-04 23:03 | ER Document Report ---
ED Medical Screen (RME) - General Chief Complaint: Abdominal Pain Stated Complaint: ABDOMINAL PAIN Time Seen by Provider: 02/04/20 22:39 Primary Care Provider: AMY HERNÁNDEZ MD [Primary Care Provider] - Follow up as needed Notes: Patient presents complaining of epigastric pain for the past month. Patient states that around 4 PM today her pain started to worsen. Patient reports shortness of breath chronically although that seems to be more severe today as well. Patient denies any nausea vomiting or diarrhea. Patient denies any cough. Patient states that she did have a swallow study yesterday. Patient rep orts a history of hypertension AAA, pacemaker with GERD chronic back pain and sleep apnea for which she wears a CPAP. I have greeted and performed a rapid initial assessment of this patient. A comprehensive ED assessment and evaluation of the patient, analysis of test results and completion of the medical decision making process will be conducted by additional ED providers. TRAVEL OUTSIDE OF THE [place] IN LAST 30 DAYS: No - Related Data Allergies/Adverse Reactions: bacitracin [From Neosporin ([id number])] Allergy (Verified 12/02/19 11:25) cephalexin Allergy (Verified 12/02/19 11:25) ciprofloxacin [From Cipro] Allergy (Verified 12/02/19 11:25) desipramine [From Norpramin] Allergy (Verified 12/02/19 11:25) iodine Allergy (Verified 12/02/19 11:25) miconazole [From Neosporin AF] Allergy (Verified 12/02/19 11:25) neomycin [From Neosporin (syv-mcq-gmvkl)] Allergy (Verified 12/02/19 11:25) polymyxin B [From Neosporin (zoj-fys-pekbh)] Allergy (Verified 12/02/19 11:25) promethazine [From Phenergan] Allergy (Verified 12/02/19 11:25) Sulfa (Sulfonamide Antibiotics) Allergy (Verified 12/02/19 11:25) codeine Adverse Reaction (Verified 12/02/19 11:25) Iodinated Contrast Media [Iodinated Contrast- Oral and IV Dye] Adverse Reaction (Verified 12/27/19 21:53) Past Medical History - Past Medical History Cardiac Medical History: Reports: Hx Atrial Fibrillation, Hx Congestive Heart Failure, Hx Coronary Artery Disease - HIGH CHOLESTEROL, Hx Heart Attack, Hx Hypertension Pulmonary Medical History: Reports: Hx Bronchitis Denies: Hx Asthma, Hx COPD, Hx Pneumonia Neurological Medical History: Denies: Hx Cerebrovascular Accident, Hx Seizures Renal/ Medical History: Denies: Hx Peritoneal Dialysis Musculoskeltal Medical History: Reports Hx Arthritis, Reports Hx Fibromyalgia Traumatic Medical History: Reports: Hx Fractures - lumbar spine Past Surgical History: Reports: Hx Appendectomy, Hx Cardiac Surgery, Hx Hysterectomy, Hx Kidney (Renal Surgery), Hx Orthopedic Surgery - bilateral knee, L shoulder replacement - Immunizations Hx Diphtheria, Pertussis, Tetanus Vaccination: Yes Physical Exam - Respiratory Respiratory status: Tachypnea - Mildly tachypneic, oxygen saturation 87 on room air, oxygen applied at 2 L nasal cannula - Abdominal Inspection: Morbidly Obese Tenderness: Tender - Tenderness to upper abdominal area left upper quadrant, right upper quadrant, epigastric area Doctor's Discharge - Discharge Referrals: AMY HERNÁNDEZ MD [Primary Care Provider] - Follow up as needed
[2020-02-04 23:15] LABS: ABSOLUTE EOSINOPHILS # (AUTO) 0.1 10^3/uL (0.0-0.6); ABSOLUTE LYMPHOCYTES (AUTO) 0.7 10^3/uL (0.5-4.7); ABSOLUTE MONOCYTES (AUTO) 0.3 10^3/uL (0.1-1.4); ABSOLUTE NEUT (AUTO) 4.3 10^3/uL (1.7-8.2); BASOPHILS % (AUTO) 0.4 % (0-2); EOSINOPHILS % (AUTO) 1.2 % (0-6); HEMATOCRIT 37.2 % (36.0-47.0); HEMOGLOBIN 12.6 g/dL (12.0-15.5); LYMPHOCYTES % (AUTO) 12.7 % (13-45); MEAN CORPUSCULAR HEMOGLOBIN 33.8 pg (27.0-33.4); MEAN CORPUSCULAR HGB CONC 33.8 g/dL (32.0-36.0); MEAN CORPUSCULAR VOLUME 100 fl (80-97); MONOCYTES % (AUTO) 5.9 % (3-13); PLATELET COUNT 155 10^3/uL (150-450); RED BLOOD COUNT 3.72 10^6/uL (3.72-5.28); RED CELL DISTRIBUTION WIDTH 14.1 % (11.5-14.0); SEGMENTED NEUTROPHILS % (AUTO) 79.8 % (42-78); TOTAL CELLS COUNTED % (AUTO) 100 %; WHITE BLOOD COUNT 5.3 10^3/uL (4.0-10.5)
[2020-02-04 23:28] LABS: ARTERIAL BLOOD H2CO3 1.45 mmol/L (1.05-1.35); ARTERIAL BLOOD HCO3 32.2 mmol/L (20-24); ARTERIAL BLOOD O2 SATURATION 89.9 % (94-98); ARTERIAL BLOOD PCO2 48.1 mmHg (35-45); ARTERIAL BLOOD PH 7.44 (7.35-7.45); ARTERIAL BLOOD PO2 55.9 mmHg (80-100); ARTERIAL BLOOD TOTAL CO2 33.6 mmol/L (21-25)
[2020-02-04 23:28] LABS: ALBUMIN 4.3 g/dL (3.5-5.0); ALKALINE PHOSPHATASE 71 U/L (38-126); ANION GAP 10 (5-19); ASPARTATE AMINO TRANSFERASE 66 U/L (14-36); BILIRUBIN,DIRECT 0.7 mg/dL (0.0-0.4); BILIRUBIN,TOTAL 1.3 mg/dL (0.2-1.3); BLOOD UREA NITROGEN 15 mg/dL (7-20); CALCIUM 9.2 mg/dL (8.4-10.2); CARBON DIOXIDE 30 mmol/L (22-30); CHLORIDE 97 mmol/L (98-107); GLUCOSE 111 mg/dL (75-110); POTASSIUM 5.8 mmol/L (3.6-5.0); TOTAL PROTEIN 7.8 g/dL (6.3-8.2)
[2020-02-04 23:33] LABS: ARTERIAL BLOOD FIO2 ROOM AIR
--- NOTE | 2020-02-04 23:34 | ER Document Report ---
ED GI/ - General Chief Complaint: Abdominal Pain Stated Complaint: ABDOMINAL PAIN Time Seen by Provider: 02/04/20 22:39 Primary Care Provider: AMY HERNÁNDEZ MD [Primary Care Provider] - Follow up as needed Mode of Arrival: Medic Information source: Patient Notes: 02/04/20 23:27 - ED Nursing Note by JORGE CHICAS Acct Num: [id number] : 1930 Patient Age: 89 Pt arrives to ER today by EMS via stretcher for c/o mid-epigastric pain. Pt stat es that she does have a history of GERD and that it is the same feeling but more intense then normal. Pt had a swallow study done yesterday and has a follow up appointment on 02/09. Pt states that the pain has continued to worsen she took her medication but there was no relief. Pt cannot remember the name of the medication. Pt states that "I feel like the pain is going to kill me." Upon arrival to ER pt O2 sat was 89%, pt placed on 2L O2 NC O2 sat remaining above 95% now. Pt denies wearing oxygen at home. Pt aaox4, skin warm and dry, respirations e/u, speaking in clear and coherent sentences. Placed on monitor. ED Medical Screen ([facility] notes) - General Chief Complaint: Abdominal Pain Stated Complaint: ABDOMINAL PAIN Time Seen by Provider: 02/04/20 22:39 Primary Care Provider: AMY HERNÁNDEZ MD [Primary Care Provider] - Follow up as needed Notes: Patient presents complaining of epigastric pain for the past month. Patient states that around 4 PM today her pain started to worsen. Patient reports shortness of breath chronically although that seems to be more severe today as well. Patient denies any nausea vomiting or diarrhea. Patient denies any cough. Patient states that she did have a swallow study yesterday. Patient reports a history of hypertension AAA, pacemaker with GERD chronic back pain and sleep apnea for which she wears a CPAP. MY NOTES 89 year old female arrives with chief complaint of epigastric pain for 1 month. Around 1600 today her pain got worse. Patient denies any black tarry stools are nausea or vomiting. She has a past medical history consistent for chronic back pain constipation and thoracic aortic aneurysm. Patient also has GERD and anemia; she also has a pacemaker and uses CPAP for sleep apnea as per above. Patient reports she had been at this hospital as well as [place] several times over the past month but no one can find out why she is having upper abdominal pain. She was there "at [facility] yesterday and had a barium swallow and she was discharged because they report they cannot find out why she was having belly pain" [place]. She last ate her only meal today around 1600 which was eggs and coffee and toast. KUB was taken upon arrival which revealed contrast. Patient does not use oxygen at home TRAVEL OUTSIDE OF THE [place] IN LAST 30 DAYS: No - HPI Patient complains to provider of: Abdominal pain Onset: Other - this month Timing/Duration: Persistent Quality of pain: Achy Severity at maximum: Moderate Severity in ED: Moderate Pain Level: 3 Location: RUQ - Related Data Allergies/Adverse Reactions: bacitracin [From Neosporin ([id number])] Allergy (Verified 12/02/19 11:25) cephalexin Allergy (Verified 12/02/19 11:25) ciprofloxacin [From Cipro] Allergy (Verified 12/02/19 11:25) desipramine [From Norpramin] Allergy (Verified 12/02/19 11:25) iodine Allergy (Verified 12/02/19 11:25) miconazole [From Neosporin AF] Allergy (Verified 12/02/19 11:25) neomycin [From Neosporin ([id number])] Allergy (Verified 12/02/19 11:25) polymyxin B [From Neosporin ([id number])] Allergy (Verified 12/02/19 11:25) promethazine [From Phenergan] Allergy (Verified 12/02/19 11:25) Sulfa (Sulfonamide Antibiotics) Allergy (Verified 12/02/19 11:25) codeine Adverse Reaction (Verified 12/02/19 11:25) Iodinated Contrast Media [Iodinated Contrast- Oral and IV Dye] Adverse Reaction (Verified 12/27/19 21:53) Past Medical History - General Information source: Patient - Social History Smoking Status: Never Smoker Cigarette use (# per day): No Chew tobacco use (# tins/day): No Smoking Education Provided: No Frequency of alcohol use: None Family History: Reviewed & Not Pertinent - Past Medical History Cardiac Medical History: Reports: Hx Atrial Fibrillation, Hx Congestive Heart Failure, Hx Coronary Artery Disease - HIGH CHOLESTEROL, Hx Heart Attack, Hx Hypertension Pulmonary Medical History: Reports: Hx Bronchitis Denies: Hx Asthma, Hx COPD, Hx Pneumonia Neurological Medical History: Denies: Hx Cerebrovascular Accident, Hx Seizures Renal/ Medical History: Denies: Hx Peritoneal Dialysis Musculoskeletal Medical History: Reports Hx Arthritis, Reports Hx Fibromyalgia Traumatic Medical History: Reports: Hx Fractures - lumbar spine Past Surgical History: Reports: Hx Appendectomy, Hx Cardiac Surgery, Hx Hyster ectomy, Hx Kidney (Renal Surgery), Hx Orthopedic Surgery - bilateral knee, L shoulder replacement - Immunizations Hx Diphtheria, Pertussis, Tetanus Vaccination: Yes Hx Pneumococcal Vaccination: 04/06/14 Review of Systems - Review of Systems Constitutional: No symptoms reported EENT: No symptoms reported Cardiovascular: No symptoms reported Respiratory: No symptoms reported Gastrointestinal: See HPI, Abdominal pain Genitourinary: No symptoms reported Female Genitourinary: No symptoms reported Musculoskeletal: No symptoms reported Skin: No symptoms reported Hematologic/Lymphatic: No symptoms reported Neurological/Psychological: No symptoms reported Physical Exam - Vital signs Vitals: Temp 98.2 F 02/04/20 22:33 Interpretation: Normal - General General appearance: Appears well, Alert - HEENT Head: Normocephalic, Atraumatic Eyes: Normal Pupils: PERRL - Respiratory Respiratory status: No respiratory distress Chest status: Nontender Breath sounds: Normal Chest palpation: Normal - Cardiovascular Rhythm: Regular Heart sounds: Normal auscultation Murmur: No - Abdominal Inspection: Obese Distension: No distension Bowel sounds: Hyperactive Tenderness: Tender - Of both the right upper quadrant and left upper quadrant on motion and palpation Organomegaly: No organomegaly - Rectal Hemorrhoids: Other - deferred - Genitourinary Bimanuel exam: Other - deferred - Back Back: Normal, Nontender - Extremities General upper extremity: Normal inspection, Nontender, Normal color, Normal ROM, Normal temperature General lower extremity: Normal inspection, Nontender, Normal color, Normal ROM, Normal temperature, Normal weight bearing. No: Antonieta's sign - Neurological Neuro grossly intact: Yes Cognition: Normal Orientation: AAOx4 Zenia Coma Scale Eye Opening: Spontaneous [place] Coma Scale Verbal: Oriented [place] Coma Scale Motor: Obeys Commands Zenia Coma Scale Total: 15 Speech: Normal Motor strength normal: LUE, RUE, LLE, RLE Sensory: Normal - Psychological Associated symptoms: Normal affect, Normal mood - Skin Skin Temperature: Warm Skin Moisture: Dry Skin Color: Normal Course - Vital Signs Vital signs: Temp Pulse Resp BP Pulse Ox 98.2 F 87 L 02/04/20 22:33 02/04/20 22:59 - Laboratory Result Diagrams: 02/04/20 22:47 02/04/20 22:47 Laboratory results interpreted by me: 02/04/20 02/04/20 02/04/20 22:47 22:47 22:47 MCV 100 H MCH 33.8 H RDW 14.1 H Lymph % (Auto) 12.7 L Seg Neutrophils % 79.8 H Carbonic Acid ABG pCO2 ABG pO2 ABG HCO3 ABG Total CO2 ABG O2 Saturation Potassium 5.8 H Chloride 97 L Glucose 111 H Direct Bilirubin 0.7 H AST 66 H NT-Pro-B Natriuret Pep 2120 H 02/04/20 23:10 MCV MCH RDW Lymph % (Auto) Seg Neutrophils % Carbonic Acid 1.45 H ABG pCO2 48.1 H ABG pO2 55.9 L ABG HCO3 32.2 H ABG Total CO2 33.6 H ABG O2 Saturation 89.9 L Potassium Chloride Glucose Direct Bilirubin AST NT-Pro-B Natriuret Pep - Diagnostic Test Radiology reviewed: Reports reviewed - CT scan reveals interstitial of patient he is to lungs with no reason for abdominal pain at this time. - EKG Interpretation by Me EKG shows normal: Sinus rhythm Rate: Normal Rhythm: A.Fib - 70 bpm A. fib flutter and V paced complexes and this was read by myself and machine. Critical Care Note - Critical Care Note Comments: I spoke with Dr. Mohinder Hubbard and he advises admission for this patient. Discharge - Discharge Clinical Impression: Hyperkalemia, Hypoxia, COVID-19 virus test result unknown Abdominal pain Qualifiers: Abdominal location: right upper quadrant Qualified Code(s): R10.11 - Right upper quadrant pain Condition: Stable Disposition: ADMITTED INPATIENT Admitting Provider: Stevie (Hospitalist) Unit Admitted: Medical Floor - Is a medical perforation Instructions: COVID-19 Guidance for Persons Under Investigation Additional Instructions: Transfer to Covid floor Referrals: AMY HERNÁNDEZ MD [Primary Care Provider] - Follow up as needed
[2020-02-04] MEDS ORDERED: MORPHINE SULFATE 10 MG/ML INJ IV ONE (23:49)
[2020-02-04] MEDS ORDERED: ONDANSETRON HCL INJ/PF 4 MG/2 ML SDV IV ONE (23:50)
--- NOTE | 2020-02-05 00:40 | RADIOLOGY REPORT (SQ) ---
ACUTE ABDOMINAL SERIES: 02/04/2020 11:38 PM CDT COMPARISON: CTA of the chest from 12/27/2019 TECHNIQUE: A PA view of the chest was obtained with upright and supine views of the abdomen. HISTORY: 89-year old with abdominal pain. FINDINGS: The cardiomediastinal silhouette is enlarged. No pneumothorax is seen. There are minimal bibasilar airspace opacities with trace effusions. Midline sternotomy changes are seen. And there is a prosthetic heart valve noted, likely mitral. A dual-lead left-sided pacemaker is seen. There is a left shoulder hemiarthroplasty noted. There is evidence of a remote fracture to the proximal right humerus. The visualized bowel gas pattern is nonspecific and nonobstructive. No free air is seen beneath the hemidiaphragms. No abnormal intraabdominal calcifications are seen. There are no findings to suggest organomegaly. There is oral contrast noted throughout the visualized colon. IMPRESSION: There are minimal bibasilar airspace opacities with trace effusions. The bowel gas pattern is nonobstructive and nonspecific.
[2020-02-05] MEDS ORDERED: SODIUM POLYSTYRENE SULFONATE 15 GM/60 ML PO ONE (00:43)
--- NOTE | 2020-02-05 01:32 | RADIOLOGY REPORT (SQ) ---
CT ABDOMEN AND PELVIS WITHOUT INTRAVENOUS CONTRAST: 02/05/2020 12:25 AM CDT HISTORY: 89-year old with concern for barium swallow. COMPARISON: None available TECHNIQUE: Axial contiguous images were obtained from the lung bases to the proximal femurs without intravenous contrast administered. Evaluation is limited by some barium given to the patient previously. Sagittal and coronal reconstructions were also obtained and reviewed. This exam was performed according to our departmental dose-optimization program, which includes automated exposure control, adjustment of the mA and/or KV according to the patient's size and/or use of iterative reconstruction technique. FINDINGS: The cardiac silhouette is enlarged. There are bibasilar groundglass airspace opacities. Coronary artery calcifications are seen. Evaluation of the solid organs is limited by the lack of intravenous contrast. Evaluation is also limited by hyperdense oral contrast given to the patient previously causing significant streak artifact. The visualized hepatic parenchyma is unremarkable. The gallbladder demonstrates no evidence of calcified gallstones. The spleen is within normal limits of size. The pancreas is unremarkable. The bilateral adrenal glands appear unremarkable. Both kidneys demonstrate no evidence of hydronephrosis. No renal or ureteral calculi are seen. The urinary bladder is mildly distended, and appears grossly unremarkable. The uterus is not visualized and is likely surgically absent. The stomach is not well distended. The small bowel loops appear unremarkable. No pericolonic inflammatory stranding is seen. The appendix is not visualized. There is no evidence of pneumoperitoneum or free fluid. The aorta and IVC appear normal in size. There is mild atherosclerotic calcification of aorta and into the iliac arteries. No significantly enlarged lymph nodes are seen in the abdomen or pelvis. Review of the bone show no evidence of any suspicious lytic or blastic lesions. Multilevel degenerative changes are seen within the lumbar spine. There is a scoliotic curvature of the thoracolumbar spine, convex to the left side. IMPRESSION: No acute abdominal process is seen though evaluation is significantly limited by the lack of intravenous contrast and hyperdense oral contrast. This causes significant streak artifact and limits evaluation. There are groundglass airspace opacities within the lung bases which may reflect edema or infection.
[2020-02-05] MEDS ORDERED: BUMETANIDE INJ/PF 1 MG/4 ML SDV IV ONE (01:47)
[2020-02-05] MEDS ORDERED: FAMOTIDINE INJ/PF 20 MG/2 ML SDV IV ONE (01:50)
[2020-02-05] MEDS ORDERED: DEXAMETHASONE SOD PHOS INJ 10 MG/1 ML VIAL IV ONE (01:51)
[2020-02-05] MEDS ORDERED: GUAIFENESIN SYRP 200 MG/10 ML UDC PO PRN (02:14)
[2020-02-05 02:51] LABS: C-REACTIVE PROTEIN 13.4 mg/L (<10.0)
[2020-02-05] MEDS ORDERED: AZITHROMYCIN INJ 500 MG VIAL IV ONE (03:24)
[2020-02-05] MEDS: AZITHROMYCIN 500 MG in DEXTROSE 5%-WATER 250 ML IV SCH ×2 (03:53→21:34)
[2020-02-05 04:42] LABS: APPEARANCE,URINE SLIGHTLY-CLOUDY; BILIRUBIN,URINE NEGATIVE (NEGATIVE); COLOR,URINE YELLOW; GLUCOSE, URINE NEGATIVE (NEGATIVE); KETONES,URINE NEGATIVE (NEGATIVE); LEUKOCYTE ESTERASE,URINE NEGATIVE (NEGATIVE); NITRITE,URINE NEGATIVE (NEGATIVE); PROTEIN,URINE 30 mg/dL (NEGATIVE); URINE SPECIFIC GRAVITY 1.021
[2020-02-05 04:44] LABS: A TYPE INFLUENZA AG NEGATIVE (NEGATIVE); B INFLUENZA AG NEGATIVE (NEGATIVE)
--- NOTE | 2020-02-05 04:56 | PDOC H&P ---
History of Present Illness Admission Date/PCP: 02/05/2020 01:29 AMY HERNÁNDEZ MD Patient complains of: Acute respiratory failure with hypoxia History of Present Illness: LIBBY COTTON is a 89 year old female who presented to the emergency room with a 1 month history of abdominal pain. She admitted numerous intermittent episodes of epigastric pain over the course of the last month. She has been evaluated for this abdominal pain several times at different locations with different providers. Her current episode of abdominal pain began suddenly at about 4 PM on 02/04/2020. The pain was constant and moderate in intensity without radiation. Her pain is associated with an increase in her chronic dyspnea. She denies other associated or accompanying signs and symptoms. She denies identification of any aggravating or ameliorating factors for her pain. In the emergency room she had an unremarkable abdominal pain evaluation, but on a CT of the abdomen and pelvis the lower portion of the chest revealed bilateral lower lobe groundglass infiltrates. Patient was noted to be hypoxic on room air and required supplemental oxygen at 2 L/min to maintain an adequate oxygen saturation. A COVID-19 test was performed and the patient was subsequently admitted to the hospital for further evaluation and treatment. 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, Other - 6.8 cm ATAA recently evaluated @ [facility], patient not a surgical candidate Pulmonary Medical History: Reports: Bronchitis, Sleep Apnea, Other - Chronic dyspnea Denies: Asthma, Chronic Obstructive Pulmonary Disease (COPD), Pneumonia EENT Medical History: Denies: Cataracts, Ears - Hearing aids Neurological Medical History: Denies: Hemorrhagic CVA, Ischemic CVA, Seizures Endocrine Medical History: Reports: Obesity Denies: Diabetes Mellitus Type 1, Diabetes Mellitus Type 2, Hyperthyroidism, Hypothyroidism Renal/ Medical History: Reports: Nephrolithiasis Denies: Chronic Kidney Disease Malignancy Medical History: Reports: None GI Medical History: Reports: Gastroesophageal Reflux Disease Denies: Cirrhosis, Hepatitis, Peptic Ulcer Disease Musculoskeltal Medical History: Reports: Arthritis, Fibromyalgia, Other - C hronic pain syndrome Skin Medical History: Denies: Eczema, Psoriasis Psychiatric Medical History: Reports: General Anxiety Disorder Denies: Alcohol Dependency, Substance Abuse, Tobacco Dependency Traumatic Medical History: Reports: None Hematology: Reports: Anemia Denies: Bleeding Tendencies Infectious Medical History: Reports: None Past Surgical History Past Surgical History: Reports: Appendectomy, Hysterectomy, Knee Replacement, Orthopedic Surgery - bilateral TKR, L shoulder replacement, Valve Replacement - Mitral valve Social History Information Source: Patient Lives with: Spouse/Significant other Smoking Status: Never Smoker Electronic Cigarette use?: No Frequency of Alcohol Use: None Hx Recreational Drug Use: No Drugs: None Hx Prescription Drug Abuse: No - Advance Directive Resuscitation Status: Full Code Surrogate healthcare decision maker:: Sarah Dent Family History Family History: Arthritis, DM, Hypertension, Malignancy Parental Family History Reviewed: Yes Children Family History Reviewed: No Sibling(s) Family History Reviewed.: Yes Medication/Allergy Home Medications: Oxycodone HCl [Oxy-Ir 5 mg Tablet] 5 mg PO Q6 PRN #14 tablet 04/24/12 Alprazolam 0.25 mg PO TID PRN 03/05/18 Aspirin [Aspirin 325 mg Tablet] 325 mg PO DAILY 03/05/18 Calcium Carbonate/Vitamin D3 [Calcium 600-Vit D3 200 Tablet] 1 each PO DAILY 03/05/18 Duloxetine HCl [Cymbalta] 60 mg PO DAILY 03/05/18 Fentanyl 1 each TD .Q3DAYS 03/05/18 Furosemide [Lasix] 20 mg PO QHS 03/05/18 Furosemide [Lasix] 80 mg PO QAM 03/05/18 Gabapentin [Neurontin 300 mg Capsule] 300 mg PO Q12 03/05/18 Hydrocodone/Acetaminophen [Hydrocodone-Acetamin 7.5-300] 1 each PO Q4 PRN 03/05/18 Linaclotide [Linzess 145 Mcg Capsule] 145 mcg PO Q48H 03/05/18 Lisinopril [Prinivil] 2.5 mg PO QAM 03/05/18 Magnesium Oxide 400 mg PO BID 03/05/18 Metoprolol Succinate [Toprol Xl] 12.5 mg PO QAM 03/05/18 Nitroglycerin 0.4 mg SL PRN PRN 03/05/18 Omeprazole 40 mg PO BID 03/05/18 Potassium Chloride 20 meq PO BID 03/05/18 Sacubitril/Valsartan [Entresto 24 mg/26 mg Tablet] 1 tab PO BID 03/05/18 Simvastatin [Zocor 10 mg Tablet] 10 mg PO QHS 03/05/18 Sucralfate [Carafate 1 gm Tablet] 1 gm PO TID 03/05/18 Trazodone HCl 50 mg PO QHS 03/05/18 Allergies/Adverse Reactions: bacitracin [From Neosporin ([id number])] Allergy (Verified 12/02/19 11:25) cephalexin Allergy (Verified 12/02/19 11:25) ciprofloxacin [From Cipro] Allergy (Verified 12/02/19 11:25) desipramine [From Norpramin] Allergy (Verified 12/02/19 11:25) iodine Allergy (Verified 12/02/19 11:25) miconazole [From Neosporin AF] Allergy (Verified 12/02/19 11:25) neomycin [From Neosporin ([id number])] Allergy (Verified 12/02/19 11:25) polymyxin B [From Neosporin ([id number])] Allergy (Verified 12/02/19 11:25) promethazine [From Phenergan] Allergy (Verified 12/02/19 11:25) Sulfa (Sulfonamide Antibiotics) Allergy (Verified 12/02/19 11:25) codeine Adverse Reaction (Verified 12/02/19 11:25) Iodinated Contrast Media [Iodinated Contrast- Oral and IV Dye] Adverse Reaction (Verified 12/27/19 21:53) Review of Systems Constitutional: ABSENT: chills, fever(s) Eyes: ABSENT: visual disturbances, other - Eye pain Ears: ABSENT: hearing changes, other - Ear pain Nose, Mouth, and Throat: ABSENT: headache(s), sore throat Cardiovascular: ABSENT: chest pain, palpitations Respiratory: PRESENT: as per HPI, dyspnea - Chronic. ABSENT: cough Gastrointestinal: PRESENT: as per HPI, abdominal pain, nausea, vomiting. ABSENT: constipation, diarrhea, dysphagia, hematemesis Genitourinary: ABSENT: dysuria, hematuria Musculoskeletal: PRESENT: back pain - Chronic. ABSENT: joint swelling Integumentary: ABSENT: pruritus, rash Neurological: ABSENT: confusion, convulsions, focal weakness, memory loss, syncope Psychiatric: ABSENT: anxiety, depression Endocrine: ABSENT: cold intolerance, heat intolerance Hematologic/Lymphatic: ABSENT: easy bleeding, easy bruising Allergic/Immunologic: ABSENT: seasonal rhinorrhea Physical Exam Vital Signs: Temp Pulse Resp BP Pulse Ox 98.2 F 87 L 02/04/20 22:33 02/04/20 22:59 General appearance: PRESENT: no acute distress, cooperative, other - On supplemental oxygen via nasal cannula at the time of evaluation Head exam: PRESENT: atraumatic, normocephalic Eye exam: PRESENT: conjunctiva pink. ABSENT: conjunctival injection, scleral icterus Ear exam: PRESENT: normal external ear exam. ABSENT: bleeding, drainage Mouth exam: PRESENT: dry mucosa, neck supple Neck exam: ABSENT: thyromegaly, tracheal deviation Respiratory exam: PRESENT: clear to auscultation kevin, symmetrical, unlabored Cardiovascular exam: PRESENT: RRR. ABSENT: clicks, gallop, rubs Pulses: PRESENT: normal radial pulses, normal dorsalis pedis pul Vascular exam: PRESENT: normal capillary refill. ABSENT: pallor Rectal exam: PRESENT: deferred Extremities exam: ABSENT: joint swelling, pedal edema Musculoskeletal exam: ABSENT: deformity, dislocation Neurological exam: PRESENT: alert, oriented to person, oriented to place, oriented to time, oriented to situation, CN II-XII grossly intact. ABSENT: motor sensory deficit Psychiatric exam: PRESENT: appropriate affect, normal mood Skin exam: PRESENT: dry, intact, warm. ABSENT: jaundice, rash, urticaria Results Laboratory Results: 02/04/20 22:47 02/04/20 22:47 02/04/20 02/04/20 02/04/20 22:47 22:47 23:10 WBC 5.3 RBC 3.72 Hgb 12.6 Hct 37.2 MCV 100 H MCH 33.8 H MCHC 33.8 RDW 14.1 H Plt Count 155 Seg Neutrophils % 79.8 H Carbonic Acid 1.45 H HCO3/H2CO3 Ratio 22:1 ABG pH 7.44 ABG pCO2 48.1 H ABG pO2 55.9 L ABG HCO3 32.2 H ABG O2 Saturation 89.9 L ABG Base Excess 7.0 FiO2 ROOM AIR Sodium 137.4 Potassium 5.8 H Chloride 97 L Carbon Dioxide 30 Anion Gap 10 BUN 15 Creatinine 0.52 Est GFR ( Amer) > 60 Glucose 111 H Calcium 9.2 Magnesium 2.1 Total Bilirubin 1.3 AST 66 H Alkaline Phosphatase 71 Total Protein 7.8 Albumin 4.3 Lipase 77.7 02/04/20 02/04/20 22:47 22:47 Troponin I < 0.012 NT-Pro-B Natriuret Pep 2120 H Impressions: Acute Abdomen Series 02/04/20 23:00 IMPRESSION: There are minimal bibasilar airspace opacities with trace effusions. The bowel gas pattern is nonobstructive and nonspecific. Abdomen/Pelvis CT 02/04/20 23:43 IMPRESSION: No acute abdominal process is seen though evaluation is significantly limited by the lack of intravenous contrast and hyperdense oral contrast. This causes significant streak artifact and limits evaluation. There are groundglass airspace opacities within the lung bases which may reflect edema or infection. Assessment and Plan - Diagnosis (1) Community acquired bilateral lower lobe pneumonia Is this a current diagnosis for this admission?: Yes (2) Acute respiratory failure with hypoxia Is this a current diagnosis for this admission?: Yes (3) Person under investigation for COVID-19 Is this a current diagnosis for this admission?: Yes (4) Hypertension Qualifiers: Hypertension type: essential hypertension Qualified Code(s): I10 - Essential (primary) hypertension Is this a current diagnosis for this admission?: Yes (5) Hyperlipidemia Qualifiers: Hyperlipidemia type: unspecified Qualified Code(s): E78.5 - Hyperlipidemia, unspecified Is this a current diagnosis for this admission?: Yes (6) Thoracic ascending aortic aneurysm Is this a current diagnosis for this admission?: Yes (7) Gastroesophageal reflux disease with esophagitis without hemorrhage Is this a current diagnosis for this admission?: Yes (8) Obstructive sleep apnea Is this a current diagnosis for this admission?: Yes (9) Generalized anxiety disorder Is this a current diagnosis for this admission?: Yes (10) Abdominal pain Qualifiers: Abdominal location: epigastric Qualified Code(s): R10.13 - Epigastric pain Is this a current diagnosis for this admission?: Yes - Plan Summary Summary: Patient will be admitted to the medical floor where she will receive routine supportive and symptomatic cares. She will receive supplemental oxygen via nasal cannula as needed to maintain an adequate oxygen saturation level. She will receive dexamethasone 6 mg IV daily after the initial 10 mg IV dose in the emergency room. She will be continued on CPAP while sleeping and resting during the day. She will receive morphine sulfate 2 to 4 mg IV every 2 hours as needed for pain. She will receive Ativan 1 mg IV every 4 hours as needed for anxiety or restlessness. She will receive a cardiac diet. - Time Time Spent with patient: Less than 15 minutes Medications reviewed and adjusted accordingly: Yes Anticipated Discharge Disposition: Home with Home Health Anticipated Discharge Timeframe: Undetermined - Inpatient Certification Based on my medical assessment, after consideration of the patient's comorbidities, presenting symptoms, or acuity I expect that the services needed warrant INPATIENT care.: Yes I certify that my determination is in accordance with my understanding of Medicare's requirements for reasonable and necessary INPATIENT services [42 CFR 412.3e].: Yes Medical Necessity: Significant Comorbidiites Make Outpatient Treatment Too Risky, Need Close Monitoring Due to Risk of Patient Decompensation, Need for Pain Control, Risk of Diagnosis Which Will Require Inpatient Eval/Care/Monitoring
[2020-02-05] MEDS: HEPARIN SOD (PORCINE) 5,000 UNIT/ML 1 ML VIAL SUBCUT SCH ×3 (05:08→21:32)
[2020-02-05] MEDS ORDERED: MORPHINE SULFATE 10 MG/ML INJ ONE (05:12)
[2020-02-05 06:15] LABS: INTERNATIONAL RATION (INR) 1.05; PROTHROMBIN TIME 13.9 SEC (11.4-15.4)
[2020-02-05 06:16] LABS: PARTIAL THROMBOPLASTIN TIME 34.4 SEC (23.5-35.8)
[2020-02-05 06:18] LABS: D-DIMER 0.43 ug/mL (0.00-0.50)
[2020-02-05] MEDS ORDERED: MORPHINE SULFATE 10 MG/ML INJ IV PRN ×3 (06:24→06:25)
--- NOTE | 2020-02-05 08:40 | EKG REPORT ---
SEVERITY:- ABNORMAL ECG - AFIB/FLUT AND V-PACED COMPLEXES : Confirmed by: Rolo Galloway MD 05-Feb-2020 08:39:31
[2020-02-05] MEDS: ZINC SULFATE 220 MG CAPSULE PO SCH (09:31)
[2020-02-05] MEDS: CHOLECALCIFEROL (D3) 1,000 UNIT (25 MCG) TABLET PO SCH (09:31)
[2020-02-05] MEDS: ASCORBIC ACID 500 MG TABLET PO SCH ×2 (09:31→17:05)
[2020-02-05] MEDS ORDERED: FAMOTIDINE 20 MG TABLET PO SCH (10:00)
[2020-02-05] MEDS ORDERED: ASPIRIN 81 MG TABLET, ENT COATED PO SCH (10:00)
[2020-02-05] MEDS ORDERED: HYDROCODONE/ACETAMINOPHEN 10-325 MG TABLET PO PRN (12:52)
[2020-02-05] MEDS ORDERED: FENTANYL 25 MCG TD SCH (13:00)
[2020-02-05] MEDS: SUCRALFATE 1 GM TABLET PO SCH ×2 (13:58→17:05)
[2020-02-05] MEDS: ALPRAZOLAM 0.25 MG TABLET PO PRN ×2 (13:58→19:30)
[2020-02-05] MEDS ORDERED: METAXALONE 800 MG TABLET PO PRN (14:19)
[2020-02-05] MEDS ORDERED: FUROSEMIDE INJ/PF 20 MG/2 ML SDV IV ONE (14:22)
--- NOTE | 2020-02-05 14:26 | PDOC PROGRESS REPORT ---
Subjective Progress Note for:: 02/05/20 Subjective:: The patient is quite tachypneic. She also has chronic back pain and is complaining of significant pain. She is actually slightly diaphoretic. She is in moderate to severe distress. Reason For Visit: BILATERAL LOWER LOBE COMMUNITY-ACQUIRED PNEUMONIA, Physical Exam Vital Signs: Temp Pulse Resp BP Pulse Ox 97.8 F 70 20 143/75 H 97 02/05/20 11:29 02/05/20 11:29 02/05/20 11:29 02/05/20 11:29 02/05/20 11:29 Intake & Output 02/04/20 02/05/20 02/06/20 07:59 06:59 06:59 Intake Total 380 Output Total Balance 380 Weight General appearance: PRESENT: cooperative, well-developed, other - Moderate to s evere distress Head exam: PRESENT: atraumatic, normocephalic Ear exam: PRESENT: normal external ear exam. ABSENT: bleeding, drainage Respiratory exam: PRESENT: decreased breath sounds, symmetrical, tachypnea, wheezes - Occasional expiratory wheeze, other - limited insoiratory phase. ABSENT: rales, stridor Cardiovascular exam: PRESENT: RRR, +S1, +S2, other - Difficult to auscultate due to tachypnea. ABSENT: bradycardia, diastolic murmur, irregular rhythm, systolic murmur, tachycardia GI/Abdominal exam: PRESENT: normal bowel sounds, soft, other - Protuberant abdomen. ABSENT: tenderness Rectal exam: PRESENT: deferred Neurological exam: PRESENT: alert, awake, oriented to person, oriented to place, oriented to time, oriented to situation, CN II-XII grossly intact. ABSENT: altered Psychiatric exam: PRESENT: anxious. ABSENT: agitated, flat affect Focused psych exam: ABSENT: delusional, paranoid, restlessness Results Laboratory Results: 02/04/20 22:47 02/04/20 22:47 02/04/20 02/04/20 02/04/20 22:47 22:47 22:47 WBC 5.3 RBC 3.72 Hgb 12.6 Hct 37.2 MCV 100 H MCH 33.8 H MCHC 33.8 RDW 14.1 H Plt Count 155 Seg Neutrophils % 79.8 H Carbonic Acid HCO3/H2CO3 Ratio ABG pH ABG pCO2 ABG pO2 ABG HCO3 ABG O2 Saturation ABG Base Excess FiO2 Sodium 137.4 Potassium 5.8 H Chloride 97 L Carbon Dioxide 30 Anion Gap 10 BUN 15 Creatinine 0.52 Est GFR ( Amer) > 60 Glucose 111 H Calcium 9.2 Magnesium 2.1 Ferritin 245.00 Total Bilirubin 1.3 AST 66 H Alkaline Phosphatase 71 C-Reactive Protein 13.4 H Total Protein 7.8 Albumin 4.3 Lipase 77.7 Urine Color Urine Appearance Urine pH Ur Specific [place] Urine Protein Urine Glucose (UA) Urine Ketones Urine Blood Urine Nitrite Ur Leukocyte Esterase Urine WBC (Auto) Urine RBC (Auto) 02/04/20 02/05/20 23:10 03:45 WBC RBC Hgb Hct MCV MCH MCHC RDW Plt Count Seg Neutrophils % Carbonic Acid 1.45 H HCO3/H2CO3 Ratio 22:1 ABG pH 7.44 ABG pCO2 48.1 H ABG pO2 55.9 L ABG HCO3 32.2 H ABG O2 Saturation 89.9 L ABG Base Excess 7.0 FiO2 ROOM AIR Sodium Potassium Chloride Carbon Dioxide Anion Gap BUN Creatinine Est GFR ( Amer) Glucose Calcium Magnesium Ferritin Total Bilirubin AST Alkaline Phosphatase C-Reactive Protein Total Protein Albumin Lipase Urine Color YELLOW Urine Appearance SLIGHTLY-CLOUDY Urine pH 5.0 Ur Specific [place] 1.021 Urine Protein 30 H Urine Glucose (UA) NEGATIVE Urine Ketones NEGATIVE Urine Blood NEGATIVE Urine Nitrite NEGATIVE Ur Leukocyte Esterase NEGATIVE Urine WBC (Auto) 2 Urine RBC (Auto) 1 02/04/20 02/04/20 22:47 22:47 Troponin I < 0.012 NT-Pro-B Natriuret Pep 2120 H Impressions: Acute Abdomen Series 02/04/20 23:00 IMPRESSION: There are minimal bibasilar airspace opacities with trace effusions. The bowel gas pattern is nonobstructive and nonspecific. Abdomen/Pelvis CT 02/04/20 23:43 IMPRESSION: No acute abdominal process is seen though evaluation is significantly limited by the lack of intravenous contrast and hyperdense oral contrast. This causes significant streak artifact and limits evaluation. There are groundglass airspace opacities within the lung bases which may reflect edema or infection. Assessment and Plan - Diagnosis (1) Community acquired bilateral lower lobe pneumonia Is this a current diagnosis for this admission?: Yes (2) Acute respiratory failure with hypoxia Is this a current diagnosis for this admission?: Yes (3) Person under investigation for COVID-19 Is this a current diagnosis for this admission?: Yes (4) Hyperlipidemia Qualifiers: Hyperlipidemia type: unspecified Qualified Code(s): E78.5 - Hyperlipidemia, unspecified Is this a current diagnosis for this admission?: Yes (5) Hypertension Qualifiers: Hypertension type: essential hypertension Qualified Code(s): I10 - Essential (primary) hypertension Is this a current diagnosis for this admission?: Yes (6) Hyperkalemia Is this a current diagnosis for this admission?: Yes (7) Gastroesophageal reflux disease with esophagitis without hemorrhage Is this a current diagnosis for this admission?: Yes (8) Thoracic ascending aortic aneurysm Is this a current diagnosis for this admission?: Yes (9) Generalized anxiety disorder Is this a current diagnosis for this admission?: Yes (10) Obstructive sleep apnea Is this a current diagnosis for this admission?: Yes (11) Abdominal pain Qualifiers: Abdominal location: epigastric Qualified Code(s): R10.13 - Epigastric pain Is this a current diagnosis for this admission?: Yes (12) Chronic pain Qualifiers: Chronic pain type: other chronic pain Qualified Code(s): G89.29 - Other chronic pain Is this a current diagnosis for this admission?: Yes - Plan Summary Summary: Patient will be admitted to the medical floor where she will receive routine supportive and symptomatic cares. She will receive supplemental oxygen via na maddi cannula as needed to maintain an adequate oxygen saturation level. She will receive dexamethasone 6 mg IV daily after the initial 10 mg IV dose in the emergency room. She will be continued on CPAP while sleeping and resting during the day. She will receive morphine sulfate 2 to 4 mg IV every 2 hours as needed for pain. She will receive Ativan 1 mg IV every 4 hours as needed for anxiety or restlessness. She will receive a cardiac diet. 02/05/2020 Respiratory failure with bilateral pneumonia-the patient is being tested for Covid pneumonia. Currently she is on azithromycin due to her significant list of allergies. Will monitor closely overnight. She may need the addition of broader spectrum coverage. Continue supplemental oxygen with eventual goal of weaning back to room air. Interestingly she did mention that she uses her CPAP machine during the day and it is possible that she in fact requires home oxygen. We will further determine this during her hospitalization. Hypertension-resume baseline cardiac medications. Congestive heart failure-no echocardiogram on record at this hospital. She does see Dr. Guadalupe at [facility] cardiology. Will try to obtain records to [facility]. 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 Continue current medication regimen. Obstructive sleep apnea-CPAP has been ordered. And is available for daytime use if needed. Gastroesophageal reflux disease-continue proton pump inhibitor. Ascending thoracic aorta aneurysm-6.[address] scan. At 89 with her past medical history she is not a candidate for surgery. We will keep blood pressure well controlled and continue aspirin and statin therapy. Chronic pain-continue fentanyl patch, gabapentin as well as [place] as needed. Anxiety-continue alprazolam and duloxetine. Hyperlipidemia-statin therapy Chronic abdominal pain-multiple imaging studies have been obtained. No discrete focus for her abdominal pain has been identified. Analgesia will be available. - Time Time Spent with patient: 15-24 minutes Medications reviewed and adjusted accordingly: Yes Anticipated Discharge Disposition: Home with Home Health Anticipated Discharge Timeframe: Unknown
[2020-02-05] MEDS ORDERED: ISOSORBIDE MONONITRATE 30 MG TAB.ER.24H PO ONE (15:30)
[2020-02-05] MEDS: MAGNESIUM OXIDE 400 MG TABLET PO SCH (17:05)
[2020-02-05] MEDS: SACUBITRIL/VALSARTAN 24 MG/26 MG TABLET PO SCH (17:05)
[2020-02-05] MEDS ORDERED: (PENDING PHARMACY ID) (Magnesium Oxide [Magnesium Oxide] 400 MG) PO SCH (18:00)
[2020-02-05] MEDS ORDERED: FUROSEMIDE 40 MG TABLET PO SCH (18:00)
[2020-02-05] MEDS: LORAZEPAM INJ 2 MG/1 ML VIAL IV PRN (19:30)
[2020-02-05] MEDS: HYDROCODONE/ACETAMINOPHEN 10-325 MG TABLET PO PRN (21:32)
[2020-02-05] MEDS: SIMVASTATIN 10 MG TABLET PO SCH (21:33)
[2020-02-05] MEDS: GABAPENTIN 300 MG CAPSULE PO SCH (21:33)
[2020-02-06] MEDS: HYDROCODONE/ACETAMINOPHEN 10-325 MG TABLET PO PRN ×3 (05:38→17:18)
[2020-02-06] MEDS: ALPRAZOLAM 0.25 MG TABLET PO PRN ×2 (05:38→13:26)
[2020-02-06] MEDS: PANTOPRAZOLE SODIUM 40 MG TABLET.DR PO SCH (05:38)
[2020-02-06] MEDS: HEPARIN SOD (PORCINE) 5,000 UNIT/ML 1 ML VIAL SUBCUT SCH ×3 (05:39→21:41)
[2020-02-06] MEDS: ACETAMINOPHEN 325 MG TABLET PO PRN (05:39)
[2020-02-06] MEDS ORDERED: METOPROLOL SUCCINATE 25 MG TAB.SR.24H PO SCH (08:00)
[2020-02-06] MEDS ORDERED: FUROSEMIDE 40 MG TABLET PO SCH (08:00)
[2020-02-06 08:25] LABS: HEMATOCRIT 36.2 % (36.0-47.0); MEAN CORPUSCULAR HEMOGLOBIN 33.3 pg (27.0-33.4); MEAN CORPUSCULAR HGB CONC 33.3 g/dL (32.0-36.0); MEAN CORPUSCULAR VOLUME 100 fl (80-97); PLATELET COUNT 147 10^3/uL (150-450); RED BLOOD COUNT 3.61 10^6/uL (3.72-5.28); RED CELL DISTRIBUTION WIDTH 13.6 % (11.5-14.0); WHITE BLOOD COUNT 5.3 10^3/uL (4.0-10.5)
[2020-02-06 08:43] LABS: ALBUMIN 3.8 g/dL (3.5-5.0); ALKALINE PHOSPHATASE 64 U/L (38-126); ASPARTATE AMINO TRANSFERASE 28 U/L (14-36); BILIRUBIN,DIRECT 0.2 mg/dL (0.0-0.4); BILIRUBIN,TOTAL 0.8 mg/dL (0.2-1.3); BLOOD UREA NITROGEN 14 mg/dL (7-20); CALCIUM 9.4 mg/dL (8.4-10.2); CHLORIDE 94 mmol/L (98-107); GLUCOSE 112 mg/dL (75-110); POTASSIUM 4.4 mmol/L (3.6-5.0); TOTAL PROTEIN 6.6 g/dL (6.3-8.2)
[2020-02-06 08:49] LABS: ANION GAP 8 (5-19); CARBON DIOXIDE 36 mmol/L (22-30)
[2020-02-06] MEDS ORDERED: DEXAMETHASONE SOD PHOS INJ 10 MG/1 ML VIAL IV SCH (10:00)
[2020-02-06] MEDS ORDERED: ISOSORBIDE MONONITRATE 30 MG TAB.ER.24H PO SCH (10:00)
[2020-02-06] MEDS: ZINC SULFATE 220 MG CAPSULE PO SCH (10:43)
[2020-02-06] MEDS: MAGNESIUM OXIDE 400 MG TABLET PO SCH ×2 (10:43→17:18)
[2020-02-06] MEDS: GABAPENTIN 300 MG CAPSULE PO SCH ×2 (10:43→21:48)
[2020-02-06] MEDS: SUCRALFATE 1 GM TABLET PO SCH ×3 (10:43→17:18)
[2020-02-06] MEDS: ASPIRIN 325 MG TABLET PO SCH (10:43)
[2020-02-06] MEDS: CHOLECALCIFEROL (D3) 1,000 UNIT (25 MCG) TABLET PO SCH (10:43)
[2020-02-06] MEDS: DULOXETINE HCL 30 MG CAPSULE.DR PO SCH (10:43)
[2020-02-06] MEDS: SACUBITRIL/VALSARTAN 24 MG/26 MG TABLET PO SCH ×2 (10:43→17:18)
[2020-02-06] MEDS: ASCORBIC ACID 500 MG TABLET PO SCH ×2 (10:44→17:18)
[2020-02-06] MEDS: FUROSEMIDE 80 MG TABLET PO SCH (10:46)
--- NOTE | 2020-02-06 10:53 | PDOC PROGRESS REPORT ---
Subjective Progress Note for:: 02/06/20 Subjective:: Patient appears somewhat better than yesterday. She is still very uncomfortable and complaining of abdominal pain. The abdominal pain has been an issue for at least the last several months. She also states that it significantly inhibits her breathing. She also reports food sticking in her esophagus. Reason For Visit: BILATERAL LOWER LOBE COMMUNITY-ACQUIRED PNEUMONIA, Physical Exam Vital Signs: Temp Pulse Resp BP Pulse Ox 97.9 F 74 20 123/61 96 02/06/20 08:12 02/06/20 08:12 02/06/20 08:12 02/06/20 08:12 02/06/20 08:12 Intake & Output 02/05/20 02/06/20 02/07/20 06:59 06:59 06:59 Intake Total 2200 Output Total 1000 Balance 1200 Weight 91.7 kg General appearance: PRESENT: cooperative, other - 89-year-old patient in moderate to severe distress. Complains of severe abdominal pain. Head exam: PRESENT: atraumatic, normocephalic Mouth exam: PRESENT: moist, tongue midline Neck exam: ABSENT: carotid bruit, lymphadenopathy, tracheostomy Respiratory exam: PRESENT: decreased breath sounds - Limited inspiratory phase, symmetrical, wheezes - Occasional expiratory wheeze. ABSENT: rhonchi, tachypnea Cardiovascular exam: PRESENT: RRR, +S1, +S2. ABSENT: bradycardia, diastolic murmur, irregular rhythm, tachycardia GI/Abdominal exam: PRESENT: distended, normal bowel sounds, soft, tenderness - Diffuse nonspecific Rectal exam: PRESENT: deferred Extremities exam: ABSENT: pedal edema Neurological exam: PRESENT: alert, awake, oriented to person, oriented to place, oriented to time, oriented to situation, CN II-XII grossly intact. ABSENT: altered Psychiatric exam: PRESENT: anxious - Regarding pain. ABSENT: agitated Skin exam: PRESENT: dry, normal color, warm. ABSENT: rash Results Laboratory Results: 02/06/20 07:54 02/06/20 07:54 02/06/20 02/06/20 07:54 07:54 WBC 5.3 RBC 3.61 L Hgb 12.0 Hct 36.2 MCV 100 H MCH 33.3 MCHC 33.3 RDW 13.6 Plt Count 147 L Sodium 138.0 Potassium 4.4 Chloride 94 L Carbon Dioxide 36 H Anion Gap 8 BUN 14 Creatinine 0.54 Est GFR ( Amer) > 60 Glucose 112 H Calcium 9.4 Magnesium 2.2 Total Bilirubin 0.8 AST 28 Alkaline Phosphatase 64 Total Protein 6.6 Albumin 3.8 02/04/20 02/04/20 22:47 22:47 Troponin I < 0.012 NT-Pro-B Natriuret Pep 2120 H Impressions: Acute Abdomen Series 02/04/20 23:00 IMPRESSION: There are minimal bibasilar airspace opacities with trace effusions. The bowel gas pattern is nonobstructive and nonspecific. Abdomen/Pelvis CT 02/04/20 23:43 IMPRESSION: No acute abdominal process is seen though evaluation is significantly limited by the lack of intravenous contrast and hyperdense oral contrast. This causes significant streak artifact and limits evaluation. There are groundglass airspace opacities within the lung bases which may reflect edema or infection. Assessment and Plan - Diagnosis (1) Community acquired bilateral lower lobe pneumonia Is this a current diagnosis for this admission?: Yes (2) Acute respiratory failure with hypoxia Is this a current diagnosis for this admission?: Yes (3) Hyperlipidemia Qualifiers: Hyperlipidemia type: unspecified Qualified Code(s): E78.5 - Hyperlipidemia, unspecified Is this a current diagnosis for this admission?: Yes (4) Hypertension Qualifiers: Hypertension type: essential hypertension Qualified Code(s): I10 - Essential (primary) hypertension Is this a current diagnosis for this admission?: Yes (5) Hyperkalemia Is this a current diagnosis for this admission?: Yes (6) Gastroesophageal reflux disease with esophagitis without hemorrhage Is this a current diagnosis for this admission?: Yes (7) Thoracic ascending aortic aneurysm Is this a current diagnosis for this admission?: Yes (8) Generalized anxiety disorder Is this a current diagnosis for this admission?: Yes (9) Obstructive sleep apnea Is this a current diagnosis for this admission?: Yes (10) Abdominal pain Qualifiers: Abdominal location: epigastric Qualified Code(s): R10.13 - Epigastric pain Is this a current diagnosis for this admission?: Yes (11) Chronic pain Qualifiers: Chronic pain type: other chronic pain Qualified Code(s): G89.29 - Other chronic pain Is this a current diagnosis for this admission?: Yes (12) Person under investigation for COVID-19 Is this a current diagnosis for this admission?: Yes - Plan Summary Summary: Patient will be admitted to the medical floor where she will receive routine supportive and symptomatic cares. She will receive supplemental oxygen via nasal cannula as needed to maintain an adequate oxygen saturation level. She will receive dexamethasone 6 mg IV daily after the initial 10 mg IV dose in the emergency room. She will be continued on CPAP while sleeping and resting during the day. She will receive morphine sulfate 2 to 4 mg IV every 2 hours as needed for pain. She will receive Ativan 1 mg IV every 4 hours as needed for anxiety or restlessness. She will receive a cardiac diet. 02/05/2020 Respiratory failure with bilateral pneumonia-the patient is being tested for Covid pneumonia. Currently she is on azithromycin due to her significant list of allergies. Will monitor closely overnight. She may need the addition of broader spectrum coverage. Continue supplemental oxygen with eventual goal of weaning back to room air. Interestingly she did mention that she uses her CPAP machine during the day and it is possible that she in fact requires home oxygen. We will further determine this during her hospitalization. Hypertension-resume baseline cardiac medications. Congestive heart failure-no echocardiogram on record at this hospital. She does see Dr. Guadalupe at [facility]. Will try to obtain records tomorrow. 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 Continue current medication regimen. Obstructive sleep apnea-CPAP has been ordered. And is available for daytime use if needed. Gastroesophageal reflux disease-continue proton pump inhibitor. Ascending thoracic aorta aneurysm-6.[address] scan. At 89 with her past medical history she is not a candidate for surgery. We will keep blood pressure well controlled and continue aspirin and statin therapy. Chronic pain-continue fentanyl patch, gabapentin as well as [place] as needed. Anxiety-continue alprazolam and duloxetine. Hyperlipidemia-statin therapy Chronic abdominal pain-multiple imaging studies have been obtained. No discrete focus for her abdominal pain has been identified. Analgesia will be available. 02/06/2020 Respiratory failure with bilateral pneumonia-continue azithromycin. White blood cell count is normal and the patient is afebrile. Due to allergies I am hesitant to add a second antibiotic at this time. Will monitor closely. Continue to taper oxygen as tolerated. [id number] on current regimen. Heart failure-we will try and obtain last echocardiogram from cardiology office. Reflux-continue PPI Cardiovascular-stable on current regimen. Continue good blood pressure control with thoracic aortic aneurysm Hyperlipidemia-statin therapy Chronic back pain-p.o. meds and fentanyl patch Abdominal pain-imaging shows a large fecal burden but no other obvious abnormalities. There are some atherosclerotic changes but nothing that appears markedly stenotic. She is on chronic narcotic therapy with no stool softeners. Will start lactulose and lubiprostone. After multiple bowel movements hopefully her pain will resolve. - Time Time Spent with patient: 15-24 minutes Medications reviewed and adjusted accordingly: Yes Anticipated Discharge Disposition: Home with Home Health Anticipated Discharge Timeframe: Unknown
[2020-02-06] MEDS ORDERED: DEXAMETHASONE SOD PHOSPHATE INJ 4 MG/1 ML VIAL IV SCH (11:00)
[2020-02-06] MEDS: LORAZEPAM INJ 2 MG/1 ML VIAL IV PRN (13:26)
[2020-02-06] MEDS: FUROSEMIDE 20 MG TABLET PO SCH (17:18)
[2020-02-06] MEDS: TRAZODONE HCL 50 MG TABLET PO PRN (21:48)
[2020-02-06] MEDS: LACTULOSE SYRUP 20 GM/30 ML UDCUP PO SCH (21:48)
[2020-02-06] MEDS: SIMVASTATIN 10 MG TABLET PO SCH (21:48)
[2020-02-06] MEDS ORDERED: AZITHROMYCIN 500 MG in DEXTROSE 5%-WATER 250 ML IV SCH (22:00)
[2020-02-07] MEDS: PANTOPRAZOLE SODIUM 40 MG TABLET.DR PO SCH (05:11)
[2020-02-07] MEDS: HYDROCODONE/ACETAMINOPHEN 10-325 MG TABLET PO PRN ×4 (05:11→21:12)
[2020-02-07] MEDS: LACTULOSE SYRUP 20 GM/30 ML UDCUP PO SCH ×3 (05:11→21:14)
[2020-02-07] MEDS: HEPARIN SOD (PORCINE) 5,000 UNIT/ML 1 ML VIAL SUBCUT SCH ×3 (05:12→21:14)
[2020-02-07] MEDS ORDERED: FUROSEMIDE 80 MG TABLET PO SCH ×2 (08:00→18:00)
--- NOTE | 2020-02-07 09:59 | PDOC CONSULTATION ---
Consultation Consult Date: 02/07/20 Attending physician:: ZEE GARG Provider Consulted: AMELIE JASMINE Consult reason:: History of HFrEF History of Present Illness Admission Date/PCP: 02/05/20 01:28 LISA HERNÁNDEZ MD History of Present Illness: LIBBY COTTON is a 89 year old female with a history of chronic atrial fibrillation status post AV node ablation and biventricular pacemaker placed March 2015, severe MR s/p repair prior to 1994, HLD, chronic diastolic and systolic heart failure, CAD s/p 1v CABG in 1994 with abnormal MPS in June 2018 revealing mild apical ischemia and moderate lateral wall ischemia, inoperable ascending aortic aneurysm and fibromyalgia with chronic aches and pains throughout her body who is consulted to our service for routine cardiac evaluation. She was admitted on 02/04/20 due to abdominal pain and diffuse body aches. She was found to have pneumonia. She had an uneventful night and specifically denies cardiac chest pain and palpitations. She continues to have diffuse body aches and non-cardiac chest pain which is her baseline. Her abdominal pain is slightly improved. Her telemetry shows a V-paced rhythm. Physical exam on 02/07/20: GENERAL: Pleasant and conversational. Oriented x3 with normal mood. Not in acute distress. Well groomed and well developed. HEENT: Normocephalic, atraumatic. Pupils equal. Sclerae anicteric. Oropharynx moist. NECK: No JVD. No carotid bruits. LUNGS: Clear to auscultation bilaterally. Normal respiratory effort without the use of accessory muscles or intercostal retractions. CARDIOVASCULAR: Regular rate and rhythm, normal S1 and S2 without murmurs, rubs, or gallops. PMI not displaced. EXTREMITIES: No pitting edema bilaterally, no cyanosis, no clubbing. +2 pulses femoral and pedal pulses bilaterally. SKIN: No lesions or rashes. MUSCULOSKELETAL: No chest tenderness to palpation. NEUROLOGIC: Nonfocal. No gross sensory or motor deficits bilateral upper or lower extremities. Cardiac studies: Lexiscan MPS on 06/21/18: -Small area of apical ischemia. -Moderate area of lateral wall ischemia. -Inferoseptal wall motion abnormality. -Intermediate risk stress test. Echocardiogram on 03/16/17: -Mild concentric LVH. -Normal left ventricular size. -Ejection fraction 55-60%. -Apical wall motion abnormality may reflect pacemaker activation. -Mildly dilated ascending aorta at 4.3 cm. -Annuloplasty ring in the mitral position. -Trace MR. Echocardiogram on 01/09/17: -The left ventricle is grossly normal in size. -Ventricular apex is not well visualized. -Mild concentric LVH. -Ejection fraction between 35 and 40%. -Grade 2 diastolic dysfunction with markedly elevated filling pressures. -Regional wall motion abnormalities cannot be excluded. -Mild RVE. -Right ventricular systolic function is mild to moderately reduced. -Device lead in the right ventricle. -Moderate to severe LAE. -Mild to moderate LANI. -Mild MR, mild to moderate TR, mild AI, mild PI. -Aortic root dilatation. Echocardiogram on : -Normal systolic function. -Mild LAE. -Mildly sclerotic aortic valve without stenosis. -Mild AI, mild MR, mild TR, mild to moderate PI. -Moderately calcified MAC without stenosis. -Borderline dilated aortic root. 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, Other - 6.8 cm ATAA recently evaluated @ [facility], patient not a surgical candidate Pulmonary Medical History: Reports: Bronchitis, Sleep Apnea, Other - Chronic dyspnea Denies: Asthma, Chronic Obstructive Pulmonary Disease (COPD), Pneumonia EENT Medical History: Denies: Cataracts, Ears - Hearing aids Neurological Medical History: Denies: Hemorrhagic CVA, Ischemic CVA, Seizures Endocrine Medical History: Reports: Obesity Denies: Diabetes Mellitus Type 1, Diabetes Mellitus Type 2, Hyperthyroidism, Hypothyroidism Renal/ Medical History: Reports: Nephrolithiasis Denies: Chronic Kidney Disease Malignancy Medical History: Reports: None GI Medical History: Reports: Gastroesophageal Reflux Disease Denies: Cirrhosis, Hepatitis, Peptic Ulcer Disease Musculoskeltal Medical History: Reports: Arthritis, Fibromyalgia, Other - Chronic pain syndrome Skin Medical History: Denies: Eczema, Psoriasis Psychiatric Medical History: Reports: General Anxiety Disorder Denies: Alcohol Dependency, Depression, Substance Abuse, Tobacco Dependency Traumatic Medical History: Reports: None Hematology: Reports: Anemia Denies: Bleeding Tendencies Infectious Medical History: Reports: None Past Surgical History Past Surgical History: Reports: Appendectomy, Hysterectomy, Knee Replacement, Or thopedic Surgery - bilateral TKR, L shoulder replacement, Valve Replacement - Mitral valve Social History Lives with: Spouse/Significant other Smoking Status: Never Smoker Electronic Cigarette use?: No Frequency of Alcohol Use: None Hx Recreational Drug Use: No Drugs: None Hx Prescription Drug Abuse: No - Advance Directive Resuscitation Status: Full Code Family History Family History: Arthritis, DM, Hypertension, Malignancy Parental Family History Reviewed: Yes Children Family History Reviewed: Yes Sibling(s) Family History Reviewed.: Yes Medication/Allergy Home Medications: Alprazolam 0.25 mg PO TID PRN 03/05/18 Aspirin [Aspirin 325 mg Tablet] 325 mg PO DAILY 03/05/18 Duloxetine HCl [Cymbalta] 60 mg PO DAILY 03/05/18 Fentanyl 25 mcg TD .Q3DAYS 03/05/18 Furosemide [Lasix] 20 mg PO QPM 03/05/18 Furosemide [Lasix] 80 mg PO QAM 03/05/18 Gabapentin [Neurontin 300 mg Capsule] 600 mg PO Q12 03/05/18 Magnesium Oxide 400 mg PO BID 03/05/18 Metoprolol Succinate [Toprol Xl] 12.5 mg PO QAM 03/05/18 Omeprazole 40 mg PO BID 03/05/18 Sacubitril/Valsartan [Entresto 24 mg/26 mg Tablet] 1 tab PO BID 03/05/18 Simvastatin [Zocor 10 mg Tablet] 10 mg PO QHS 03/05/18 Sucralfate [Carafate 1 gm Tablet] 1 gm PO TID 03/05/18 Ascorbic Acid [Vitamin C 500 mg Tablet] 500 mg PO DAILY 02/05/20 Biotin 1,000 mcg PO DAILY 02/05/20 Hydrocodone/Acetaminophen [[place] 10-325 mg Tablet] 1 tab PO QIDP PRN 02/05/20 Isosorbide Mononitrate [Imdur 30 mg Tablet.er] 15 mg PO DAILY 02/05/20 Metaxalone [Skelaxin 800 mg Tablet] 800 mg PO DAILYP PRN 02/05/20 Multivitamin [Tab-A-Nikolai] 1 each PO DAILY 02/05/20 Potassium Chloride [Klor-Con M20] 20 meq PO BID 02/05/20 Allergies/Adverse Reactions: bacitracin [From Neosporin ([id number])] Allergy (Verified 12/02/19 11:25) cephalexin Allergy (Verified 12/02/19 11:25) ciprofloxacin [From Cipro] Allergy (Verified 12/02/19 11:25) desipramine [From Norpramin] Allergy (Verified 12/02/19 11:25) iodine Allergy (Verified 12/02/19 11:25) miconazole [From Neosporin AF] Allergy (Verified 12/02/19 11:25) neomycin [From Neosporin ([id number])] Allergy (Verified 12/02/19 11:25) polymyxin B [From Neosporin ([id number])] Allergy (Verified 12/02/19 11:25) promethazine [From Phenergan] Allergy (Verified 12/02/19 11:25) Sulfa (Sulfonamide Antibiotics) Allergy (Verified 12/02/19 11:25) codeine Adverse Reaction (Verified 12/02/19 11:25) Iodinated Contrast Media [Iodinated Contrast- Oral and IV Dye] Adverse Reaction (Verified 12/27/19 21:53) Physical Exam Vital Signs: Temp Pulse Resp BP Pulse Ox 98.4 F 71 20 142/63 H 98 02/07/20 00:08 02/07/20 00:08 02/07/20 00:08 02/07/20 00:08 02/07/20 02:21 Intake & Output 02/06/20 02/07/20 02/08/20 06:59 06:59 06:59 Intake Total 2200 1707 Output Total 1000 1700 Balance 1200 7 Weight 91.7 kg 94.6 kg Results Laboratory Results: 02/06/20 07:54 02/06/20 07:54 02/06/20 02/06/20 07:54 07:54 WBC 5.3 RBC 3.61 L Hgb 12.0 Hct 36.2 MCV 100 H MCH 33.3 MCHC 33.3 RDW 13.6 Plt Count 147 L Sodium 138.0 Potassium 4.4 Chloride 94 L Carbon Dioxide 36 H Anion Gap 8 BUN 14 Creatinine 0.54 Est GFR ( Amer) > 60 Glucose 112 H Calcium 9.4 Magnesium 2.2 Total Bilirubin 0.8 AST 28 Alkaline Phosphatase 64 Total Protein 6.6 Albumin 3.8 02/04/20 02/04/20 22:47 22:47 Troponin I < 0.012 NT-Pro-B Natriuret Pep 2120 H Impressions: Acute Abdomen Series 02/04/20 23:00 IMPRESSION: There are minimal bibasilar airspace opacities with trace effusions. The bowel gas pattern is nonobstructive and nonspecific. Abdomen/Pelvis CT 02/04/20 23:43 IMPRESSION: No acute abdominal process is seen though evaluation is significantly limited by the lack of intravenous contrast and hyperdense oral contrast. This causes significant streak artifact and limits evaluation. There are groundglass airspace opacities within the lung bases which may reflect edema or infection. 02/06/20 07:54 02/06/20 07:54 MCV 100 fl (80-97) H 02/06/20 07:54 MCH 33.3 pg (27.0-33.4) 02/06/20 07:54 MCHC 33.3 g/dL (32.0-36.0) 02/06/20 07:54 RDW 13.6 % (11.5-14.0) 02/06/20 07:54 Seg Neutrophils % 79.8 % (42-78) H 02/04/20 22:47 Carbonic Acid 1.45 mmol/L (1.05-1.35) H 02/04/20 23:10 HCO3/H2CO3 Ratio 22:1 02/04/20 23:10 ABG pH 7.44 (7.35-7.45) 02/04/20 23:10 ABG pCO2 48.1 mmHg (35-45) H 02/04/20 23:10 ABG pO2 55.9 mmHg (80-100) L 02/04/20 23:10 ABG HCO3 32.2 mmol/L (20-24) H 02/04/20 23:10 ABG O2 Saturation 89.9 % (94-98) L 02/04/20 23:10 ABG Base Excess 7.0 mmol/L 02/04/20 23:10 FiO2 ROOM AIR 02/04/20 23:10 Chloride 94 mmol/L (98-107) L 02/06/20 07:54 Carbon Dioxide 36 mmol/L (22-30) H 02/06/20 07:54 Anion Gap 8 (5-19) 02/06/20 07:54 Est GFR ( Amer) > 60 (>60) 02/06/20 07:54 Glucose 112 mg/dL (75-110) H 02/06/20 07:54 Calcium 9.4 mg/dL (8.4-10.2) 02/06/20 07:54 Magnesium 2.2 mg/dL (1.6-2.3) 02/06/20 07:54 Ferritin 245.00 ng/mL (11.1-264.0) 02/04/20 22:47 Total Bilirubin 0.8 mg/dL (0.2-1.3) 02/06/20 07:54 AST 28 U/L (14-36) 02/06/20 07:54 Alkaline Phosphatase 64 U/L (38-126) 02/06/20 07:54 C-Reactive Protein 13.4 mg/L (<10.0) H 02/04/20 22:47 Total Protein 6.6 g/dL (6.3-8.2) 02/06/20 07:54 Albumin 3.8 g/dL (3.5-5.0) 02/06/20 07:54 Lipase 77.7 U/L (23-300) 02/04/20 22:47 Urine Color YELLOW 02/05/20 03:45 Urine Appearance SLIGHTLY-CLOUDY 02/05/20 03:45 Urine pH 5.0 (5.0-9.0) 02/05/20 03:45 Ur Specific [place] 1.021 02/05/20 03:45 Urine Protein 30 mg/dL (NEGATIVE) H 02/05/20 03:45 Urine Glucose (UA) NEGATIVE mg/dL (NEGATIVE) 02/05/20 03:45 Urine Ketones NEGATIVE mg/dL (NEGATIVE) 02/05/20 03:45 Urine Blood NEGATIVE (NEGATIVE) 02/05/20 03:45 Urine Nitrite NEGATIVE (NEGATIVE) 02/05/20 03:45 Ur Leukocyte Esterase NEGATIVE (NEGATIVE) 02/05/20 03:45 Urine WBC (Auto) 2 /HPF 02/05/20 03:45 Urine RBC (Auto) 1 /HPF 02/05/20 03:45 02/04/20 02/04/20 22:47 22:47 Troponin I < 0.012 NT-Pro-B Natriuret Pep 2120 H Current Medication List Generic Name Dose Route Start Last Admin Trade Name Freq PRN Reason Stop Dose Admin Acetaminophen 650 mg 02/05/20 02:14 02/06/20 05:39 Tylenol 325 Mg Tablet PO 03/06/20 02:13 650 mg Q4HP PRN Administration Temperature greater than 101F Hydrocodone Bitart/Acetaminophen 1 tab 02/05/20 14:24 02/07/20 05:11 [place] 10-325 Mg Tablet PO 02/12/20 14:22 1 tab Q4HP PRN Administration FOR PAIN Alprazolam 0.25 mg 02/05/20 12:52 02/06/20 13:26 Xanax 0.25 Mg Tablet PO 02/12/20 12:51 0.25 mg TIDP PRN Administration FOR ANXIETY Ascorbic Acid 500 mg 02/05/20 10:00 02/06/20 17:18 Vitamin C 500 Mg Tablet PO 03/06/20 09:59 500 mg BID REINA Administration Aspirin 325 mg 02/06/20 10:00 02/06/20 10:43 Aspirin 325 Mg Tablet PO 03/07/20 09:59 325 mg DAILY REINA Administration Cholecalciferol 2,000 unit 02/05/20 10:00 02/06/20 10:43 Vitamin D3 1000 Unit Tablet PO 03/06/20 09:59 2,000 unit DAILY REINA Administration Dexamethasone Sodium Phosphate 6 mg 02/06/20 11:00 02/06/20 13:27 Decadron Inj 4 Mg/Ml Vial IV 02/16/20 09:59 6 mg DAILY REINA Administration Duloxetine HCl 60 mg 02/06/20 10:00 02/06/20 10:43 Cymbalta 30 Mg Capsule.Dr PO 03/07/20 09:59 60 mg DAILY REINA Administration Fentanyl 1 each 02/08/20 10:00 Duragesic 25 Mcg/Hr Transdermal Patch TD 02/15/20 09:59 Q3D@1000 REINA Furosemide 80 mg 02/06/20 09:30 02/06/20 10:46 Lasix 80 Mg Tablet PO 03/07/20 09:29 80 mg QAM REINA Administration Furosemide 20 mg 02/06/20 18:00 02/06/20 17:18 Lasix 20 Mg Tablet PO 03/07/20 17:59 20 mg QPM REINA Administration Gabapentin 600 mg 02/05/20 22:00 02/06/20 21:48 Neurontin 300 Mg Capsule PO 03/06/20 21:59 600 mg Q12 REINA Administration Guaifenesin 200 mg 02/05/20 02:14 Robitussin Syrup 200 Mg/10 Ml Ud Cup PO 03/06/20 02:13 QIDP PRN COUGH Heparin Sodium (Porcine) 5,000 unit 02/05/20 06:00 02/07/20 05:12 Heparin Inj 5,000 Units/Ml 1 Ml Vial SUBCUT 03/06/20 05:59 Not Given Q8 REINA Azithromycin 500 mg/ Dextrose 250 mls @ 250 mls/hr 02/06/20 22:00 02/06/20 22:48 IV 02/13/20 21:59 Infused QHS REINA Infusion Isosorbide Mononitrate 15 mg 02/06/20 10:00 02/06/20 10:43 Imdur 30 Mg Tablet.Er PO 03/07/20 09:59 15 mg DAILY REINA Administration Lactulose 20 gm 02/06/20 22:00 02/07/20 05:11 Cephulac Syrup 20 Gm/30 Ml Udcup PO 03/07/20 21:59 Not Given Q8 REINA Lorazepam 1 mg 02/05/20 06:26 02/06/20 13:26 Ativan Inj 2 Mg/1 Ml Vial IV 02/12/20 06:25 1 mg Q4HP PRN Administration ANXIETY/RESTLESSNESS Lubiprostone 24 mcg 02/07/20 10:00 Amitiza 24 Mcg Capsule PO 03/08/20 09:59 DAILY REINA Magnesium Oxide 400 mg 02/05/20 18:00 02/06/20 17:18 Mag-Ox 400 Mg Tablet PO 03/06/20 17:59 400 mg BID REINA Administration Metaxalone 800 mg 02/05/20 14:19 Skelaxin 800 Mg Tablet PO 03/06/20 14:18 DAILYP PRN LEG CRAMPS Metoprolol Succinate 12.5 mg 02/06/20 08:00 02/06/20 10:44 Toprol Xl 25 Mg Tab.Sr PO 03/07/20 07:59 12.5 mg QAM REINA Administration Pantoprazole Sodium 40 mg 02/06/20 06:00 02/07/20 05:[address] Tablet PO 03/07/20 05:59 40 mg Q6AM REINA Administration Sacubitril/Valsartan 1 tab 02/05/20 18:00 02/06/20 17:18 Entresto 24 Mg/26 Mg Tablet PO 03/06/20 17:59 1 tab BID REINA Administration Simvastatin 10 mg 02/05/20 22:00 02/06/20 21:48 Zocor 10 Mg Tablet PO 03/06/20 21:59 10 mg QHS REINA Administration Sodium Chloride 2.5 ml 02/05/20 06:00 02/07/20 05:12 Saline Flush 2.5 Ml Monoject Prefil Syrin IV 03/06/20 05:59 2.5 ml Q8 REINA Administration Sucralfate 1 gm 02/05/20 14:00 02/06/20 17:18 Carafate 1 Gm Tablet PO 03/06/20 13:59 1 gm TID REINA Administration Trazodone HCl 50 mg 02/06/20 10:46 02/06/20 21:48 Desyrel 50 Mg Tablet PO 03/07/20 10:45 50 mg HSP PRN Administration SLEEP OR INSOMNIA MAY REPEAT Zinc Sulfate 220 mg 02/05/20 10:00 02/06/20 10:43 Zinc-220 Capsule PO 03/06/20 09:59 220 mg DAILY REINA Administration Discontinued Medications Generic Name Dose Route Start Last Admin Trade Name Freq PRN Reason Stop Dose Admin Hydrocodone Bitart/Acetaminophen 1 tab 02/05/20 12:52 02/05/20 13:58 [place] 10-325 Mg Tablet PO 02/12/20 12:51 1 tab QIDP PRN Administration FOR PAIN Aspirin 81 mg 02/05/20 10:00 02/05/20 09:31 Ecotrin 81 Mg Ec Tablet PO 03/06/20 09:59 81 mg DAILY REINA Administration Azithromycin Confirm 02/05/20 03:24 02/05/20 03:53 Zithromax Inj 500 Mg Vial Administered 02/05/20 03:25 Not Given Dose 500 mg IV .STK-MED ONE Bumetanide 1 mg 02/05/20 01:47 EST 02/05/20 03:12 Bumex Inj/Pf 1 Mg/4 Ml Sdv IV 02/05/20 01:48 EST 1 mg NOW ONE Administration Dexamethasone Sodium Phosphate 10 mg 02/05/20 01:51 EST 02/05/20 03:12 Decadron Inj 10 Mg/1 Ml Vial IV 02/05/20 01:52 EST 10 mg NOW ONE Administration Dexamethasone Sodium Phosphate 6 mg 02/06/20 10:00 02/06/20 10:47 Decadron Inj 10 Mg/1 Ml Vial IV 03/07/20 09:59 Not Given DAILY REINA Famotidine 20 mg 02/05/20 01:50 EST 02/05/20 03:10 Pepcid Inj/Pf 20 Mg/2 Ml Sdv IV 02/05/20 01:51 EST 20 mg NOW ONE Administration Famotidine 20 mg 02/05/20 10:00 02/05/20 09:31 Pepcid 20 Mg Tablet PO 03/06/20 09:59 20 mg Q12 REINA Administration Furosemide 80 mg 02/06/20 08:00 02/06/20 17:37 Lasix 40 Mg Tablet PO 03/07/20 07:59 Not Given QAM REINA Furosemide 20 mg 02/05/20 18:00 02/05/20 17:03 Lasix 40 Mg Tablet PO 03/06/20 17:59 Not Given QPM REINA Furosemide 20 mg 02/05/20 14:22 02/05/20 15:35 Lasix Inj/Pf 20 Mg/2 Ml Sdv IV 02/05/20 14:23 20 mg NOW ONE Administration Furosemide 80 mg 02/07/20 08:00 Lasix 80 Mg Tablet PO 03/08/20 07:59 QAM REINA Azithromycin 500 mg/ Dextrose 250 mls @ 250 mls/hr 02/05/20 03:00 02/05/20 22:00 IV 02/12/20 02:59 Infused 2200 REINA Infusion Isosorbide Mononitrate 15 mg 02/05/20 15:30 02/05/20 15:34 Imdur 30 Mg Tablet.Er PO 02/05/20 15:31 15 mg NOW ONE Administration Morphine Sulfate 4 mg 02/04/20 23:49 02/05/20 00:17 Morphine 10 Mg/Ml Inj IV 02/04/20 23:50 4 mg NOW ONE Administration Morphine Sulfate Confirm 02/05/20 05:12 02/05/20 05:15 Morphine 10 Mg/Ml Inj Administered 02/05/20 05:13 4 mg Dose Administration 10 mg .ROUTE .STK-MED ONE Morphine Sulfate 2 mg 02/05/20 06:24 Morphine 10 Mg/Ml Inj IV 02/12/20 06:23 Q2HP PRN 1-2/5 PAIN Morphine Sulfate 3 mg 02/05/20 06:24 Morphine 10 Mg/Ml Inj IV 02/12/20 06:23 Q2HP PRN 3-4/5 PAIN Morphine Sulfate 4 mg 02/05/20 06:25 Morphine 10 Mg/Ml Inj IV 02/12/20 06:24 Q2HP PRN 5/5 PAIN Ondansetron HCl 4 mg 02/04/20 23:50 02/05/20 00:17 Zofran Inj/Pf 4 Mg/2 Ml Sdv IV 02/04/20 23:51 4 mg NOW ONE Administration Sodium Polystyrene Sulfonate 15 gm 02/05/20 00:43 02/05/20 01:51 EDT Kayexalate 15 Gm/60 Ml Susp 60 Ml PO 02/05/20 00:44 15 gm NOW ONE Administration Assessment & Plan - Diagnosis (1) CHF (congestive heart failure) Qualifiers: Heart failure type: combined systolic and diastolic Is this a current diagnosis for this admission?: Yes Plan: The patient has both systolic and diastolic heart failure and is euvolemic and free of heart failure symptoms. Recommendations: -Continue with low sodium diet. -Very judicious use of fluids. -Continue with outpatient HF regimen. -Cardiology does not have further recommendations therefore we will sign off the case for now. Please reconsult if clinically indicated. (2) Atrial fibrillation Qualifiers: Atrial fibrillation type: permanent Qualified Code(s): I48.21 - Permanent atrial fibrillation Is this a current diagnosis for this admission?: Yes Plan: Status post AV node ablation and biventricular pacemaker. The patient is not anticoagulated given her prior significant bleed and her elevated fall risk. Recommendations: -Continue with current management. -We will sign off the case. (3) Aortic aneurysm Qualifiers: Aortic location: thoracic aorta Presence of rupture: without rupture Qualified Code(s): I71.2 - Thoracic aortic aneurysm, without rupture Is this a current diagnosis for this admission?: Yes Plan: She has an inoperable ascending aortic aneurysm. Recommendations: -Continue with clinical follow up. -Keep BP 130/80 or below. -We will sign off the case for now. (4) CAD (coronary artery disease) Qualifiers: [place] vs. transplanted heart: [place] heart Associated angina: without angina Is this a current diagnosis for this admission?: Yes Plan: Status post CABGx1 in 1994 and previous mitral valve repair. Her Lexiscan MPS in June 2018 demonstrated new ischemia in the apex and lateral wall and was determined to be an intermediate risk study. She denies ischemic symptoms. Recommendations: -Continue with current medical management.
[2020-02-07] MEDS: LUBIPROSTONE 24 MCG CAPSULE PO SCH (10:21)
[2020-02-07] MEDS: ALPRAZOLAM 0.25 MG TABLET PO PRN (10:22)
[2020-02-07] MEDS: GABAPENTIN 300 MG CAPSULE PO SCH ×2 (10:22→21:12)
[2020-02-07] MEDS: ASPIRIN 325 MG TABLET PO SCH (10:22)
[2020-02-07] MEDS: ASCORBIC ACID 500 MG TABLET PO SCH ×2 (10:22→17:31)
[2020-02-07] MEDS: CHOLECALCIFEROL (D3) 1,000 UNIT (25 MCG) TABLET PO SCH (10:22)
[2020-02-07] MEDS: DULOXETINE HCL 30 MG CAPSULE.DR PO SCH (10:22)
[2020-02-07] MEDS: FUROSEMIDE 80 MG TABLET PO SCH (10:23)
[2020-02-07] MEDS: MAGNESIUM OXIDE 400 MG TABLET PO SCH ×2 (10:23→17:31)
[2020-02-07] MEDS: ISOSORBIDE MONONITRATE 30 MG TAB.ER.24H PO SCH (10:23)
[2020-02-07] MEDS: SUCRALFATE 1 GM TABLET PO SCH ×3 (10:23→17:31)
[2020-02-07] MEDS: METOPROLOL SUCCINATE 25 MG TAB.SR.24H PO SCH (10:25)
[2020-02-07] MEDS: SACUBITRIL/VALSARTAN 24 MG/26 MG TABLET PO SCH ×2 (10:45→17:31)
[2020-02-07] MEDS: ZINC SULFATE 220 MG CAPSULE PO SCH (10:45)
[2020-02-07] MEDS: FUROSEMIDE 20 MG TABLET PO SCH (17:31)
--- NOTE | 2020-02-07 17:56 | PDOC PROGRESS REPORT ---
Subjective Progress Note for:: 02/07/20 Subjective:: Patient is resting in bed comfortably. She awakens easily when I say her name. Overall her abdominal pain is improving though still present. Described as a discomfort in the epigastric region. She has had 4 bowel movements since so far today without complaint or concern. Nausea vomiting or diarrhea. O2 sat 99% on 1L NC, without complaints of SOB. Attempted to wean off O2 with drop in O2 sat to 90% on room air, now on 2L NC. Reason For Visit: BILATERAL LOWER LOBE COMMUNITY-ACQUIRED PNEUMONIA, Physical Exam Vital Signs: Temp Pulse Resp BP Pulse Ox 97.6 F 70 16 107/52 L 90 L 02/07/20 15:41 02/07/20 15:41 02/07/20 15:41 02/07/20 15:41 02/07/20 15:41 Intake & Output 02/06/20 02/07/20 02/08/20 06:59 06:59 06:59 Intake Total 2200 1707 Output Total 1000 1700 200 Balance 1200 7 -200 Weight 91.7 kg 94.6 kg General appearance: PRESENT: cooperative, obese Head exam: PRESENT: atraumatic, normocephalic Eye exam: PRESENT: EOMI Mouth exam: PRESENT: moist, tongue midline Neck exam: PRESENT: full ROM. ABSENT: tenderness Respiratory exam: PRESENT: decreased breath sounds, symmetrical, wheezes - Expiratory, occasional. ABSENT: rales, rhonchi Cardiovascular exam: PRESENT: RRR, +S1, +S2. ABSENT: diastolic murmur, systolic murmur GI/Abdominal exam: PRESENT: normal bowel sounds, soft, tenderness - Primarily in the epigastric region.. ABSENT: firm Extremities exam: PRESENT: full ROM. ABSENT: pedal edema Musculoskeletal exam: PRESENT: ambulatory, full ROM, tenderness - Diffuse states this is normal for her.. ABSENT: deformity, dislocation Neurological exam: PRESENT: alert, awake, oriented to person, oriented to place, oriented to time, oriented to situation Psychiatric exam: PRESENT: anxious Skin exam: PRESENT: dry, intact, warm Results Laboratory Results: 02/06/20 07:54 02/06/20 07:54 02/04/20 02/04/20 22:47 22:47 Troponin I < 0.012 NT-Pro-B Natriuret Pep 2120 H Impressions: Acute Abdomen Series 02/04/20 23:00 IMPRESSION: There are minimal bibasilar airspace opacities with trace effusions. The bowel gas pattern is nonobstructive and nonspecific. Abdomen/Pelvis CT 02/04/20 23:43 IMPRESSION: No acute abdominal process is seen though evaluation is significantly limited by the lack of intravenous contrast and hyperdense oral contrast. This causes significant streak artifact and limits evaluation. There are groundglass airspace opacities within the lung bases which may reflect edema or infection. Assessment and Plan - Diagnosis (1) Community acquired bilateral lower lobe pneumonia Is this a current diagnosis for this admission?: Yes (2) Acute respiratory failure with hypoxia Is this a current diagnosis for this admission?: Yes (3) Abdominal pain Qualifiers: Abdominal location: epigastric Qualified Code(s): R10.13 - Epigastric pain Is this a current diagnosis for this admission?: Yes (4) Hyperkalemia Is this a current diagnosis for this admission?: Yes (5) Hyperlipidemia Qualifiers: Hyperlipidemia type: unspecified Qualified Code(s): E78.5 - Hyperlipidemia, unspecified Is this a current diagnosis for this admission?: Yes (6) Hypertension Qualifiers: Hypertension type: essential hypertension Qualified Code(s): I10 - Essential (primary) hypertension Is this a current diagnosis for this admission?: Yes (7) Gastroesophageal reflux disease with esophagitis without hemorrhage Is this a current diagnosis for this admission?: Yes (8) Generalized anxiety disorder Is this a current diagnosis for this admission?: Yes (9) Obstructive sleep apnea Is this a current diagnosis for this admission?: Yes (10) Thoracic ascending aortic aneurysm Is this a current diagnosis for this admission?: Yes (11) Chronic pain Qualifiers: Chronic pain type: other chronic pain Qualified Code(s): G89.29 - Other chronic pain Is this a current diagnosis for this admission?: Yes (12) Person under investigation for COVID-19 Is this a current diagnosis for this admission?: Yes - Plan Summary Summary: Patient will be admitted to the medical floor where she will receive routine supportive and symptomatic cares. She will receive supplemental oxygen via nasal cannula as needed to maintain an adequate oxygen saturation level. She will receive dexamethasone 6 mg IV daily after the initial 10 mg IV dose in the emergency room. She will be continued on CPAP while sleeping and resting during the day. She will receive morphine sulfate 2 to 4 mg IV every 2 hours as needed for pain. She will receive Ativan 1 mg IV every 4 hours as needed for anxiety or restlessness. She will receive a cardiac diet. 02/05/2020 Respiratory failure with bilateral pneumonia-the patient is being tested for Covid pneumonia. Currently she is on azithromycin due to her significant list of allergies. Will monitor closely overnight. She may need the addition of broader spectrum coverage. Continue supplemental oxygen with eventual goal of weaning back to room air. Interestingly she did mention that she uses her CPAP machine during the day and it is possible that she in fact requires home oxygen. We will further determine this during her hospitalization. Hypertension-resume baseline cardiac medications. Congestive heart failure-no echocardiogram on record at this hospital. She does see Dr. Guadalupe at [facility]. Will try to obtain records tomorrow. 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 Continue current medication regimen. Obstructive sleep apnea-CPAP has been ordered. And is available for daytime use if needed. Gastroesophageal reflux disease-continue proton pump inhibitor. Ascending thoracic aorta aneurysm-6.[address] scan. At 89 with her past medical history she is not a candidate for surgery. We will keep blood pressure well controlled and continue aspirin and statin therapy. Chronic pain-continue fentanyl patch, gabapentin as well as [place] as needed. Anxiety-continue alprazolam and duloxetine. Hyperlipidemia-statin therapy Chronic abdominal pain-multiple imaging studies have been obtained. No discrete focus for her abdominal pain has been identified. Analgesia will be available. 02/06/2020 Respiratory failure with bilateral pneumonia-continue azithromycin. White blood cell count is normal and the patient is afebrile. Due to allergies I am hesitant to add a second antibiotic at this time. Will monitor closely. Continue to taper oxygen as tolerated. [id number] on current regimen. Heart failure-we will try and obtain last echocardiogram from cardiology office. Reflux-continue PPI Cardiovascular-stable on current regimen. Continue good blood pressure control with thoracic aortic aneurysm Hyperlipidemia-statin therapy Chronic back pain-p.o. meds and fentanyl patch Abdominal pain-imaging shows a large fecal burden but no other obvious abnormalities. There are some atherosclerotic changes but nothing that appears markedly stenotic. She is on chronic narcotic therapy with no stool softeners. Will start lactulose and lubiprostone. After multiple bowel movements hopefully her pain will resolve. 02/07/2020 Respiratory failure with bilateral pneumonia: Continue with this medicine. Afebrile. Noted decrease in O2 sats when removed from supportive O2. Placed back on supplemental O2, 2L NC. Continue to monitor. Continue to wean. Hypertension: Cnt with current treatment regimen. Heart failure: Cardiology consulted, Dr. Moore saw the patient. Note was reviewed. Patient with history of systolic and diastolic heart failure without heart failure symptoms at this time. Continue outpatient heart failure regimen. Low-sodium diet and judicious fluids. Cardiology signed off at this time. Reflux: Potential cause of recurrent epigastric irritation. Continue with PPI. Aortic aneurysm: Patient seen by Dr. Moore cardiology. Recommends ma intaining a blood pressure 130/80 or below. Atrial fibrillation: Patient seen by Dr. Moore cardiology. 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 Cnt current regimen. Abdominal pain: Imaging notable for large fecal variant. With history of chronic narcotic therapy with helpful blockers. Treated with lactulose and lubiprostone, she has had 4 total bowel movements with treatment. Notable improvement in symptoms overall. She continues to complain of abdominal pain. Continue with current treatment and monitor for pain. Suspect this will continue to improve and she has normalized bowel movements. Plan to d/c pt once stable O2 saturation on room air. Plan to dc with stool softener/laxative therapy to counter chronic narcotic use. - Time Time Spent with patient: 15-24 minutes Medications reviewed and adjusted accordingly: Yes Anticipated Discharge Disposition: Home with Home Health Anticipated Discharge Timeframe: within 24 hours
[2020-02-07] MEDS: SIMVASTATIN 10 MG TABLET PO SCH (21:12)
[2020-02-07] MEDS: TRAZODONE HCL 50 MG TABLET PO PRN (21:12)
[2020-02-07] MEDS: AZITHROMYCIN 250 MG TABLET PO SCH (21:13)
[2020-02-08] MEDS: HYDROCODONE/ACETAMINOPHEN 10-325 MG TABLET PO PRN ×4 (04:02→22:09)
[2020-02-08] MEDS: LACTULOSE SYRUP 20 GM/30 ML UDCUP PO SCH ×3 (05:54→22:16)
[2020-02-08] MEDS: HEPARIN SOD (PORCINE) 5,000 UNIT/ML 1 ML VIAL SUBCUT SCH ×3 (05:54→22:10)
[2020-02-08] MEDS: PANTOPRAZOLE SODIUM 40 MG TABLET.DR PO SCH (05:54)
[2020-02-08] MEDS: FUROSEMIDE 80 MG TABLET PO SCH (09:05)
[2020-02-08] MEDS: METOPROLOL SUCCINATE 25 MG TAB.SR.24H PO SCH (09:06)
[2020-02-08] MEDS ORDERED: FENTANYL 25 MCG/HR PATCH.TD72 TD SCH (10:00)
[2020-02-08 10:36] LABS: HEMATOCRIT 38.1 % (36.0-47.0); HEMOGLOBIN 12.8 g/dL (12.0-15.5); MEAN CORPUSCULAR HEMOGLOBIN 33.6 pg (27.0-33.4); MEAN CORPUSCULAR HGB CONC 33.7 g/dL (32.0-36.0); MEAN CORPUSCULAR VOLUME 100 fl (80-97); PLATELET COUNT 166 10^3/uL (150-450); RED BLOOD COUNT 3.82 10^6/uL (3.72-5.28); RED CELL DISTRIBUTION WIDTH 13.6 % (11.5-14.0); WHITE BLOOD COUNT 5.5 10^3/uL (4.0-10.5)
[2020-02-08] MEDS: ZINC SULFATE 220 MG CAPSULE PO SCH (11:24)
[2020-02-08] MEDS: LUBIPROSTONE 24 MCG CAPSULE PO SCH (11:25)
[2020-02-08] MEDS: DULOXETINE HCL 30 MG CAPSULE.DR PO SCH (11:26)
[2020-02-08] MEDS: ASCORBIC ACID 500 MG TABLET PO SCH ×2 (11:26→18:34)
[2020-02-08] MEDS: CHOLECALCIFEROL (D3) 1,000 UNIT (25 MCG) TABLET PO SCH (11:28)
[2020-02-08] MEDS: GABAPENTIN 300 MG CAPSULE PO SCH ×2 (11:28→22:09)
[2020-02-08] MEDS: ASPIRIN 325 MG TABLET PO SCH (11:29)
[2020-02-08] MEDS: ISOSORBIDE MONONITRATE 30 MG TAB.ER.24H PO SCH (11:29)
[2020-02-08] MEDS: MAGNESIUM OXIDE 400 MG TABLET PO SCH ×2 (11:29→18:33)
[2020-02-08] MEDS: SUCRALFATE 1 GM TABLET PO SCH ×3 (11:30→18:33)
[2020-02-08] MEDS: SACUBITRIL/VALSARTAN 24 MG/26 MG TABLET PO SCH ×2 (11:30→18:34)
[2020-02-08 12:24] LABS: BLOOD UREA NITROGEN 14 mg/dL (7-20); CALCIUM 9.6 mg/dL (8.4-10.2); CHLORIDE 88 mmol/L (98-107); GLUCOSE 118 mg/dL (75-110); POTASSIUM 3.9 mmol/L (3.6-5.0)
[2020-02-08 12:57] LABS: ANION GAP 12 (5-19)
[2020-02-08] MEDS: ALPRAZOLAM 0.25 MG TABLET PO PRN (12:59)
[2020-02-08 13:02] LABS: CARBON DIOXIDE 39 mmol/L (22-30)
--- NOTE | 2020-02-08 14:25 | PDOC PROGRESS REPORT ---
Subjective Progress Note for:: 02/08/20 Subjective:: Patient resting in bed. She complains of epigastric pain, rib pain and back pain. Pain has been gradually increasing in severity over past several months. Abdominal pain is improved with bowel movements. She tells me that her chronic pain is managed by Dr. Burleson, pain clinic. Treatment regimen includes senna patches. This was confirmed in her med rec. Provided patient with fentanyl patch consistent with home regimen today. Additionally she feels short of breat h. O2 sats ranging from 88-98% on room air, 100% on 1L NC. Discussed possible dc to SNF, pt refuses stating she has home health nurse and would like to go home once she feels better. Reason For Visit: BILATERAL LOWER LOBE COMMUNITY-ACQUIRED PNEUMONIA, Physical Exam Vital Signs: Temp Pulse Resp BP Pulse Ox 97.3 F 69 16 125/82 98 02/08/20 11:29 02/08/20 11:29 02/08/20 11:29 02/08/20 11:29 02/08/20 11:29 Intake & Output 02/07/20 02/08/20 02/09/20 06:59 06:59 06:59 Intake Total 1707 670 240 Output Total 1700 1300 300 Balance 7 -630 -60 Weight 94.6 kg 92.7 kg Additional comments: General appearance: PRESENT: cooperative, obese Head exam: PRESENT: atraumatic, normocephalic Eye exam: PRESENT: EOMI Mouth exam: PRESENT: moist, tongue midline Neck exam: PRESENT: full ROM. ABSENT: tenderness Respiratory exam: PRESENT: decreased breath sounds, symmetrical. Crackles present bilateral lower lobes. ABSENT: rhonchi Cardiovascular exam: PRESENT: RRR, +S1, +S2. ABSENT: diastolic murmur, systolic murmur GI/Abdominal exam: PRESENT: normal bowel sounds, soft, tenderness - Primarily in the epigastric region.. ABSENT: firm Extremities exam: PRESENT: full ROM. ABSENT: pedal edema Musculoskeletal exam: PRESENT: ambulatory, full ROM, tenderness - Diffuse states this is normal for her.. ABSENT: deformity, dislocation Neurological exam: PRESENT: alert, awake, oriented to person, oriented to place, oriented to time, oriented to situation Psychiatric exam: PRESENT: anxious Skin exam: PRESENT: dry, intact, warm Results Laboratory Results: 02/08/20 09:10 02/08/20 09:10 02/08/20 02/08/20 09:10 09:10 WBC 5.5 RBC 3.82 Hgb 12.8 Hct 38.1 MCV 100 H MCH 33.6 H MCHC 33.7 RDW 13.6 Plt Count 166 Sodium 138.6 Potassium 3.9 Chloride 88 L Carbon Dioxide 39 H Anion Gap 12 BUN 14 Creatinine 0.46 L Est GFR ( Amer) > 60 Glucose 118 H Calcium 9.6 02/04/20 02/04/20 22:47 22:47 Troponin I < 0.012 NT-Pro-B Natriuret Pep 2120 H Impressions: Acute Abdomen Series 02/04/20 23:00 IMPRESSION: There are minimal bibasilar airspace opacities with trace effusions. The bowel gas pattern is nonobstructive and nonspecific. Abdomen/Pelvis CT 02/04/20 23:43 IMPRESSION: No acute abdominal process is seen though evaluation is significantly limited by the lack of intravenous contrast and hyperdense oral contrast. This causes significant streak artifact and limits evaluation. There are groundglass airspace opacities within the lung bases which may reflect edema or infection. Assessment and Plan - Diagnosis (1) Community acquired bilateral lower lobe pneumonia Is this a current diagnosis for this admission?: Yes (2) Acute respiratory failure with hypoxia Is this a current diagnosis for this admission?: Yes (3) Abdominal pain Qualifiers: Abdominal location: epigastric Qualified Code(s): R10.13 - Epigastric pain Is this a current diagnosis for this admission?: Yes (4) Hyperkalemia Is this a current diagnosis for this admission?: Yes (5) Hyperlipidemia Qualifiers: Hyperlipidemia type: unspecified Qualified Code(s): E78.5 - Hyperlipidemia, unspecified Is this a current diagnosis for this admission?: Yes (6) Hypertension Qualifiers: Hypertension type: essential hypertension Qualified Code(s): I10 - Essential (primary) hypertension Is this a current diagnosis for this admission?: Yes (7) Gastroesophageal reflux disease with esophagitis without hemorrhage Is this a current diagnosis for this admission?: Yes (8) Generalized anxiety disorder Is this a current diagnosis for this admission?: Yes (9) Obstructive sleep apnea Is this a current diagnosis for this admission?: Yes (10) Thoracic ascending aortic aneurysm Is this a current diagnosis for this admission?: Yes (11) Chronic pain Qualifiers: Chronic pain type: other chronic pain Qualified Code(s): G89.29 - Other chronic pain Is this a current diagnosis for this admission?: Yes (12) Person under investigation for COVID-19 Is this a current diagnosis for this admission?: Yes - Plan Summary Summary: Patient will be admitted to the medical floor where she will receive routine supportive and symptomatic cares. She will receive supplemental oxygen via nasal cannula as needed to maintain an adequate oxygen saturation level. She will receive dexamethasone 6 mg IV daily after the initial 10 mg IV dose in the emergency room. She will be continued on CPAP while sleeping and resting during the day. She will receive morphine sulfate 2 to 4 mg IV every 2 hours as needed for pain. She will receive Ativan 1 mg IV every 4 hours as needed for anxiety or restlessness. She will receive a cardiac diet. 02/05/2020 Respiratory failure with bilateral pneumonia-the patient is being tested for Covid pneumonia. Currently she is on azithromycin due to her significant list of allergies. Will monitor closely overnight. She may need the addition of broader spectrum coverage. Continue supplemental oxygen with eventual goal of weaning back to room air. Interestingly she did mention that she uses her CPAP machine during the day and it is possible that she in fact requires home oxygen. We will further determine this during her hospitalization. Hypertension-resume baseline cardiac medications. Congestive heart failure-no echocardiogram on record at this hospital. She does see Dr. Guadalupe at [facility] cardiology. Will try to obtain records tomorrow. 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 Continue current medication regimen. Obstructive sleep apnea-CPAP has been ordered. And is available for daytime use if needed. Gastroesophageal reflux disease-continue proton pump inhibitor. Ascending thoracic aorta aneurysm-6.[address] scan. At 89 with her past medical history she is not a candidate for surgery. We will keep blood pressure well controlled and continue aspirin and statin therapy. Chronic pain-continue fentanyl patch, gabapentin as well as [place] as needed. Anxiety-continue alprazolam and duloxetine. Hyperlipidemia-statin therapy Chronic abdominal pain-multiple imaging studies have been obtained. No discrete focus for her abdominal pain has been identified. Analgesia will be available. 02/06/2020 Respiratory failure with bilateral pneumonia-continue azithromycin. White blood cell count is normal and the patient is afebrile. Due to allergies I am hesitant to add a second antibiotic at this time. Will monitor closely. Continue to taper oxygen as tolerated. [id number] on current regimen. Heart failure-we will try and obtain last echocardiogram from cardiology office. Reflux-continue PPI Cardiovascular-stable on current regimen. Continue good blood pressure control with thoracic aortic aneurysm Hyperlipidemia-statin therapy Chronic back pain-p.o. meds and fentanyl patch Abdominal pain-imaging shows a large fecal burden but no other obvious abnormalities. There are some atherosclerotic changes but nothing that appears markedly stenotic. She is on chronic narcotic therapy with no stool softeners. Will start lactulose and lubiprostone. After multiple bowel movements hopefully her pain will resolve. 02/07/2020 Respiratory failure with bilateral pneumonia: Continue with azithromycin. Afebrile. Noted decrease in O2 sats when removed from supportive O2. Placed back on supplemental O2, 2L NC. Continue to monitor. Continue to wean. Hypertension: Cnt with current treatment regimen. Heart failure: Cardiology consulted, Dr. Moore saw the patient. Note was reviewed. Patient with history of systolic and diastolic heart failure without heart failure symptoms at this time. Continue outpatient heart failure regimen. Low-sodium diet and judicious fluids. Cardiology signed off at this time. Reflux: Potential cause of recurrent epigastric irritation. Continue with PPI. Aortic aneurysm: Patient seen by Dr. Moore cardiology. Recommends maintaining a blood pressure 130/80 or below. Atrial fibrillation: Patient seen by Dr. Moore cardiology. 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 Cnt current regimen. Abdominal pain: Imaging notable for large fecal variant. With history of chronic narcotic therapy without laxatives. Treated with lactulose and lubiprostone, she has had 4 total bowel movements with treatment. Notable improvement in symptoms overall. She continues to complain of abdominal pain. Continue with current treatment and monitor for pain. Suspect this will continue to improve and she has normalized bowel movements. Plan to d/c pt once stable O2 saturation on room air. Plan to dc with stool softener/laxative therapy to counter chronic narcotic use. 02/08/2020 Respiratory failure with bilateral pneumonia: Cnt azithromycin. Afebrile. Oxygen saturation continues to vary otherwise consistently been 100% 1 on 1 L nasal cannula. Remove supplemental oxygen at this time and monitor on room air. Hypertension: Controlled. Cnt with current treatment regimen. Heart failure: Patient with history of systolic and diastolic heart failure without heart failure symptoms at this time. Appreciated crackles bilateral lower lobes on exam. Implement IV Lasix today transition to p.o. Lasix tomorrow plan to discharge home tomorrow. Suspect this will help her breathing. Reflux: Potential cause of recurrent epigastric irritation. Continue with PPI. Aortic aneurysm: maintaining a blood pressure 130/80 or below. Atrial fibrillation: S/p AV node ablation and biv entricular pacemaker. Cnt current regimen. Abdominal pain: Notable improvement with lactulose and lubiprostone; plan to cnt tx as outpatient. chronic pain: Home tx includes fentanyl patch. Patient was provided this today. Plan: Transition from IV lasix to po lasix tomorrow. Suspect this will aid in ease of breathing. Dc home with lactulose and lubiprostone. Dc home with home health nurse and PT. Dc home with continued PPI tx. Recommend f/u with chronic pain doctor for further management of pain. - Time Time Spent with patient: 15-24 minutes Medications reviewed and adjusted accordingly: Yes Anticipated Discharge Disposition: Home with Home Health Anticipated Discharge Timeframe: within 24 hours
--- NOTE | 2020-02-08 18:59 | ADVANCED CARE ---
- Diagnosis (1) Community acquired bilateral lower lobe pneumonia Diagnosis Current: Yes (2) Acute respiratory failure with hypoxia Diagnosis Current: Yes (3) Abdominal pain Diagnosis Current: Yes (4) Hyperkalemia Diagnosis Current: Yes (5) Hyperlipidemia Diagnosis Current: Yes (6) Hypertension Diagnosis Current: Yes (7) Gastroesophageal reflux disease with esophagitis without hemorrhage Diagnosis Current: Yes (8) Generalized anxiety disorder Diagnosis Current: Yes (9) Obstructive sleep apnea Diagnosis Current: Yes (10) Thoracic ascending aortic aneurysm Diagnosis Current: Yes (11) Chronic pain Diagnosis Current: Yes (12) Person under investigation for COVID-19 Diagnosis Current: Yes Attendance: Discussion was held at the bedside with the patient Resuscitation Status: Full Code Discussion: This discussion was focused on making sure that patient understood the concept of full code versus DNR versus comfort measures or less aggressive care. We reviewed the fact that aggressive therapy will be initiated and the DNR only comes into effect should the patient have a catastrophic event. Care Planning Goals: The goal would be to have the patient establish a living will her healthcare proxy with regard to ongoing decompensation without a catastrophic event. Discussion about long-term placement versus other supportive measures short of CPR and intubation can be delineated. Document(s) Completed: None Time Spent: 20 minutes
[2020-02-08] MEDS: AZITHROMYCIN 250 MG TABLET PO SCH (22:09)
[2020-02-08] MEDS: SIMVASTATIN 10 MG TABLET PO SCH (22:10)
[2020-02-08] MEDS: TRAZODONE HCL 50 MG TABLET PO PRN (22:10)
[2020-02-08] MEDS: FUROSEMIDE INJ/PF 100 MG/10 ML SDV IV SCH (22:10)
[2020-02-09] MEDS: LACTULOSE SYRUP 20 GM/30 ML UDCUP PO SCH ×3 (05:01→22:06)
[2020-02-09] MEDS: HEPARIN SOD (PORCINE) 5,000 UNIT/ML 1 ML VIAL SUBCUT SCH ×3 (05:02→21:58)
[2020-02-09] MEDS: PANTOPRAZOLE SODIUM 40 MG TABLET.DR PO SCH (05:04)
[2020-02-09] MEDS: HYDROCODONE/ACETAMINOPHEN 10-325 MG TABLET PO PRN ×4 (05:05→20:01)
[2020-02-09] MEDS: METOPROLOL SUCCINATE 25 MG TAB.SR.24H PO SCH (07:47)
[2020-02-09] MEDS: FUROSEMIDE INJ/PF 100 MG/10 ML SDV IV SCH ×2 (09:04→21:57)
[2020-02-09] MEDS: GABAPENTIN 300 MG CAPSULE PO SCH ×2 (09:04→21:55)
[2020-02-09] MEDS: SUCRALFATE 1 GM TABLET PO SCH ×3 (09:05→17:19)
[2020-02-09] MEDS: ISOSORBIDE MONONITRATE 30 MG TAB.ER.24H PO SCH (09:05)
[2020-02-09] MEDS: DULOXETINE HCL 30 MG CAPSULE.DR PO SCH (09:05)
[2020-02-09] MEDS: ASCORBIC ACID 500 MG TABLET PO SCH ×2 (09:05→17:19)
[2020-02-09] MEDS: LUBIPROSTONE 24 MCG CAPSULE PO SCH (09:05)
[2020-02-09] MEDS: ASPIRIN 325 MG TABLET PO SCH (09:05)
[2020-02-09] MEDS: CHOLECALCIFEROL (D3) 1,000 UNIT (25 MCG) TABLET PO SCH (09:05)
[2020-02-09] MEDS: MAGNESIUM OXIDE 400 MG TABLET PO SCH ×2 (09:05→17:19)
[2020-02-09] MEDS: SACUBITRIL/VALSARTAN 24 MG/26 MG TABLET PO SCH ×2 (09:05→17:19)
[2020-02-09] MEDS: ZINC SULFATE 220 MG CAPSULE PO SCH (09:06)
[2020-02-09] MEDS: ALPRAZOLAM 0.25 MG TABLET PO PRN (16:12)
--- NOTE | 2020-02-09 18:07 | PDOC PROGRESS REPORT ---
Subjective Progress Note for:: 02/09/20 Subjective:: Patient resting in bed. We have attempted multiple times to remove her from supplemental oxygen but O2 sats continued to drop between 88-94 saturation on room air. Patient with hx sleep apnea, reports using CPAP machine both at night and during the day. SpO2 monitored during physical therapy evaluation. Note was reviewed. O2 sats dropped 88% on room air while ambulating. None the less patient denies shortness or breath. She continues to complain of epigastric, r ib, and back pain. Reason For Visit: BILATERAL LOWER LOBE COMMUNITY-ACQUIRED PNEUMONIA, Physical Exam Vital Signs: Temp Pulse Resp BP Pulse Ox 98.7 F 70 20 102/45 L 95 02/09/20 15:39 02/09/20 15:39 02/09/20 15:39 02/09/20 15:39 02/09/20 15:39 Intake & Output 02/08/20 02/09/20 02/10/20 06:59 06:59 06:59 Intake Total 670 440 Output Total 1300 1500 Balance -630 -1060 Weight 92.7 kg 92.7 kg Additional comments: General appearance: PRESENT: cooperative, obese Head exam: PRESENT: atraumatic, normocephalic Eye exam: PRESENT: EOMI Mouth exam: PRESENT: moist, tongue midline Neck exam: PRESENT: full ROM. ABSENT: tenderness Respiratory exam: PRESENT: decreased breath sounds, symmetrical. Crackles present bilateral lower lobes. ABSENT: rhonchi Cardiovascular exam: PRESENT: RRR, +S1, +S2. ABSENT: diastolic murmur, systolic murmur GI/Abdominal exam: PRESENT: normal bowel sounds, soft, tenderness - Primarily in the epigastric region. ABSENT: firm Extremities exam: PRESENT: full ROM. ABSENT: pedal edema Musculoskeletal exam: PRESENT: ambulatory, full ROM, tenderness - Diffuse states this is normal for her as she has history of fibromyalgia. ABSENT: deformity, dislocation Neurological exam: PRESENT: alert, awake, oriented to person, oriented to place, oriented to time, oriented to situation Psychiatric exam: PRESENT: anxious Skin exam: PRESENT: dry, intact, warm Results Laboratory Results: 02/08/20 09:10 02/08/20 09:10 02/04/20 02/04/20 22:47 22:47 Troponin I < 0.012 NT-Pro-B Natriuret Pep 2120 H Impressions: Acute Abdomen Series 10/31/20 23:00 IMPRESSION: There are minimal bibasilar airspace opacities with trace effusions. The bowel gas pattern is nonobstructive and nonspecific. Abdomen/Pelvis CT 02/04/20 23:43 IMPRESSION: No acute abdominal process is seen though evaluation is significantly limited by the lack of intravenous contrast and hyperdense oral contrast. This causes significant streak artifact and limits evaluation. There are groundglass airspace opacities within the lung bases which may reflect edema or infection. Assessment and Plan - Diagnosis (1) Community acquired bilateral lower lobe pneumonia Is this a current diagnosis for this admission?: Yes (2) Acute respiratory failure with hypoxia Is this a current diagnosis for this admission?: Yes (3) Abdominal pain Qualifiers: Abdominal location: epigastric Qualified Code(s): R10.13 - Epigastric pain Is this a current diagnosis for this admission?: Yes (4) Hyperkalemia Is this a current diagnosis for this admission?: Yes (5) Hyperlipidemia Qualifiers: Hyperlipidemia type: unspecified Qualified Code(s): E78.5 - Hyperlipidemia, unspecified Is this a current diagnosis for this admission?: Yes (6) Hypertension Qualifiers: Hypertension type: essential hypertension Qualified Code(s): I10 - Essential (primary) hypertension Is this a current diagnosis for this admission?: Yes (7) Gastroesophageal reflux disease with esophagitis without hemorrhage Is this a current diagnosis for this admission?: Yes (8) Generalized anxiety disorder Is this a current diagnosis for this admission?: Yes (9) Obstructive sleep apnea Is this a current diagnosis for this admission?: Yes (10) Thoracic ascending aortic aneurysm Is this a current diagnosis for this admission?: Yes (11) Chronic pain Qualifiers: Chronic pain type: other chronic pain Qualified Code(s): G89.29 - Other chronic pain Is this a current diagnosis for this admission?: Yes (12) Person under investigation for COVID-19 Is this a current diagnosis for this admission?: Yes - Plan Summary Summary: Patient will be admitted to the medical floor where she will receive routine supportive and symptomatic cares. She will receive supplemental oxygen via nasal cannula as needed to maintain an adequate oxygen saturation level. She will receive dexamethasone 6 mg IV daily after the initial 10 mg IV dose in the emergency room. She will be continued on CPAP while sleeping and resting during the day. She will receive morphine sulfate 2 to 4 mg IV every 2 hours as needed for pain. She will receive Ativan 1 mg IV every 4 hours as needed for anxiety or restlessness. She will receive a cardiac diet. 02/05/2020 Respiratory failure with bilateral pneumonia-the patient is being tested for Covid pneumonia. Currently she is on azithromycin due to her significant list of allergies. Will monitor closely overnight. She may need the addition of b roader spectrum coverage. Continue supplemental oxygen with eventual goal of weaning back to room air. Interestingly she did mention that she uses her CPAP machine during the day and it is possible that she in fact requires home oxygen. We will further determine this during her hospitalization. Hypertension-resume baseline cardiac medications. Congestive heart failure-no echocardiogram on record at this hospital. She does see Dr. Guadalupe at [facility]. Will try to obtain records tomorrow. 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 Continue current medication regimen. Obstructive sleep apnea-CPAP has been ordered. And is available for daytime use if needed. Gastroesophageal reflux disease-continue proton pump inhibitor. Ascending thoracic aorta aneurysm-6.[address] scan. At 89 with her past medical history she is not a candidate for surgery. We will keep blood pressure well controlled and continue aspirin and statin therapy. Chronic pain-continue fentanyl patch, gabapentin as well as [place] as needed. Anxiety-continue alprazolam and duloxetine. Hyperlipidemia-statin therapy Chronic abdominal pain-multiple imaging studies have been obtained. No discrete focus for her abdominal pain has been identified. Analgesia will be available. 02/06/2020 Respiratory failure with bilateral pneumonia-continue azithromycin. White blood cell count is normal and the patient is afebrile. Due to allergies I am hesitant to add a second antibiotic at this time. Will monitor closely. Continue to taper oxygen as tolerated. [id number] on current regimen. Heart failure-we will try and obtain last echocardiogram from cardiology office. Reflux-continue PPI Cardiovascular-stable on current regimen. Continue good blood pressure control with thoracic aortic aneurysm Hyperlipidemia-statin therapy Chronic back pain-p.o. meds and fentanyl patch Abdominal pain-imaging shows a large fecal burden but no other obvious abnormalities. There are some atherosclerotic changes but nothing that appears markedly stenotic. She is on chronic narcotic therapy with no stool softeners. Will start lactulose and lubiprostone. After multiple bowel movements hopefully her pain will resolve. 02/07/2020 Respiratory failure with bilateral pneumonia: Continue with azithromycin. Afebrile. Noted decrease in O2 sats when removed from supportive O2. Placed back on supplemental O2, 2L NC. Continue to monitor. Continue to wean. Hypertension: Cnt with current treatment regimen. Heart failure: Cardiology consulted, Dr. Moore saw the patient. Note was reviewed. Patient with history of systolic and diastolic heart failure without heart failure symptoms at this time. Continue outpatient heart failure regimen. Low-sodium diet and judicious fluids. Cardiology signed off at this time. Reflux: Potential cause of recurrent epigastric irritation. Continue with PPI. Aortic aneurysm: Patient seen by Dr. Moore cardiology. Recommends maintaining a blood pressure 130/80 or below. Atrial fibrillation: Patient seen by Dr. Moore cardiology. 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 Cnt current regimen. Abdominal pain: Imaging notable for large fecal variant. With history of chronic narcotic therapy without laxatives. Treated with lactulose and lubiprostone, she has had 4 total bowel movements with treatment. Notable improvement in symptoms overall. She continues to complain of abdominal pain. Continue with current treatment and monitor for pain. Suspect this will continue to improve and she has normalized bowel movements. Plan to d/c pt once stable O2 saturation on room air. Plan to dc with stool softener/laxative therapy to counter chronic narcotic use. 02/08/2020 Respiratory failure with bilateral pneumonia: Cnt azithromycin. Afebrile. Oxygen saturation continues to vary otherwise consistently been 100% 1 on 1 L nasal cannula. Remove supplemental oxygen at this time and monitor on room air. Hypertension: Controlled. Cnt with current treatment regimen. Heart failure: Patient with history of systolic and diastolic heart failure without heart failure symptoms at this time. Appreciated crackles bilateral lower lobes on exam. Implement IV Lasix today transition to p.o. Lasix tomorrow plan to discharge home tomorrow. Suspect this will help her breathing. Reflux: Potential cause of recurrent epigastric irritation. Continue with PPI. Aortic aneurysm: maintaining a blood pressure 130/80 or below. Atrial fibrillation: S/p AV node ablation and biv entricular pacemaker. Cnt current regimen. Abdominal pain: Notable improvement with lactulose and lubiprostone; plan to cnt tx as outpatient. chronic pain: Home tx includes fentanyl patch. Patient was provided this today. Plan: Transition from IV lasix to po lasix tomorrow. Suspect this will aid in ease of breathing. Dc home with lactulose and lubiprostone. Dc home with home health nurse and PT. Dc home with continued PPI tx. Recommend f/u with chronic pain doctor for further management of pain. 02/09/2020 Respiratory failure with bilateral pneumonia: Cnt with azithromycin. Has received x5 days of therapy thus far. Plan to discontinue azithromycin tomorrow. Patient O2 sat drops to 82% while on room air at rest. With improvement in O2 sat with 2L oxygen nasal canula. Given patient's multiple comorbidities including obstructive sleep apnea, large thoracic ascending aortic aneurysm, congestive heart failure, atrial fibrillation and coronary artery disease patient candidate for home O2 Order for 2L NC home O2 with concentrator and portable. Hypertension: Controlled. Cnt with current regimen. Heart failure: Crackles improved. Plan to cnt IV lasix until discharge home, res ume home medication at that time. Reflux: Continue with PPI. Aortic aneurysm: maintaining a blood pressure 130/80 or below. Educated pt of the BP goal recommend routine checks following dc. Abdominal pain: Notable improvement with lactulose and lubiprostone; plan to cnt tx as outpatient. chronic pain/Fibromyalgia: Fentanyl patch placed yesterday. Generalized weakness: Assessed by PT. Note reviewed. Recommends home health PT. Plan to implement this upon discharge. Plan: Plan to discharge patient home with home O2 and home health PT. Transition from IV lasix to PO lasix. Cnt lactulose and lubiprostone daily. Recommend f/u PCP within 1 week dc. F/u with pain management for further treatment of chronic pain. - Time Time Spent with patient: 15-24 minutes Medications reviewed and adjusted accordingly: Yes Anticipated Discharge Disposition: Home with Home Health Anticipated Discharge Timeframe: within 24 hours
[2020-02-09] MEDS: SIMVASTATIN 10 MG TABLET PO SCH (21:57)
[2020-02-09] MEDS: AZITHROMYCIN 250 MG TABLET PO SCH (22:00)
[2020-02-10] MEDS: HYDROCODONE/ACETAMINOPHEN 10-325 MG TABLET PO PRN ×3 (00:06→11:24)
[2020-02-10] MEDS: TRAZODONE HCL 50 MG TABLET PO PRN (00:52)
[2020-02-10] MEDS: PANTOPRAZOLE SODIUM 40 MG TABLET.DR PO SCH (05:27)
[2020-02-10] MEDS: HEPARIN SOD (PORCINE) 5,000 UNIT/ML 1 ML VIAL SUBCUT SCH ×2 (05:27→13:43)
[2020-02-10] MEDS: LACTULOSE SYRUP 20 GM/30 ML UDCUP PO SCH ×2 (05:31→13:42)
[2020-02-10 08:08] VITALS: BP 112/57
[2020-02-10] MEDS: METOPROLOL SUCCINATE 25 MG TAB.SR.24H PO SCH (08:25)
[2020-02-10] MEDS: SACUBITRIL/VALSARTAN 24 MG/26 MG TABLET PO SCH (09:43)
[2020-02-10] MEDS: GABAPENTIN 300 MG CAPSULE PO SCH (09:43)
[2020-02-10] MEDS: ASCORBIC ACID 500 MG TABLET PO SCH (09:43)
[2020-02-10] MEDS: CHOLECALCIFEROL (D3) 1,000 UNIT (25 MCG) TABLET PO SCH (09:43)
[2020-02-10] MEDS: ZINC SULFATE 220 MG CAPSULE PO SCH (09:43)
[2020-02-10] MEDS: DULOXETINE HCL 30 MG CAPSULE.DR PO SCH (09:44)
[2020-02-10] MEDS: SUCRALFATE 1 GM TABLET PO SCH ×2 (09:44→13:42)
[2020-02-10] MEDS: ASPIRIN 325 MG TABLET PO SCH (09:44)
[2020-02-10] MEDS: ISOSORBIDE MONONITRATE 30 MG TAB.ER.24H PO SCH (09:44)
[2020-02-10] MEDS: MAGNESIUM OXIDE 400 MG TABLET PO SCH (09:44)
[2020-02-10] MEDS: LUBIPROSTONE 24 MCG CAPSULE PO SCH (09:44)
[2020-02-10] MEDS: FUROSEMIDE INJ/PF 100 MG/10 ML SDV IV SCH (09:44)
[2020-02-10] MEDS: ACETAMINOPHEN 325 MG TABLET PO PRN (13:58)
--- NOTE | 2020-02-10 19:37 | PDOC DISCHARGE SUMMARY ---
Impression - Admit/DC Date/PCP Admission Date/Primary Care Provider: 02/05/20 01:28 LISA HERNÁNDEZ MD Discharge Date: 02/10/20 - Discharge Diagnosis (1) Community acquired bilateral lower lobe pneumonia Is this a current diagnosis for this admission?: Yes (2) Acute respiratory failure with hypoxia Is this a current diagnosis for this admission?: Yes (3) Abdominal pain Is this a current diagnosis for this admission?: Yes (4) Hyperkalemia Is this a current diagnosis for this admission?: Yes (5) Hyperlipidemia Is this a current diagnosis for this admission?: Yes (6) Hypertension Is this a current diagnosis for this admission?: Yes (7) Gastroesophageal reflux disease with esophagitis without hemorrhage Is this a current diagnosis for this admission?: Yes (8) Generalized anxiety disorder Is this a current diagnosis for this admission?: Yes (9) Obstructive sleep apnea Is this a current diagnosis for this admission?: Yes (10) Thoracic ascending aortic aneurysm Is this a current diagnosis for this admission?: Yes (11) Chronic pain Is this a current diagnosis for this admission?: Yes (12) Person under investigation for COVID-19 Is this a current diagnosis for this admission?: Yes - Assessment Summary: Jennifer Lawrence is a 89 year old female with multiple comorbidities who presented to the ED for evaluation of abdominal pain which has been present for several months. Patient admits to being evaluated for abdominal pain by several different providers at several different locations. Interestingly her acute abdominal series and abdomen/pelvis CT were without significant abdominal findings but notable for bibasilar airspace opasities. She was subsequently tested for CIVD (negative) and treated with course of Azithromycin. Patient completed Azithromycin course in full and is requiring no further antibiotic treatment at time of discharge. Patient's hospitalization was complicated by p ersistent hypoxia requiring supplemental O2. Pt evaluated by physical therapy with ambulatory O2 sats as low as 88%. Pt with history of chronic dyspnea and LUIS. She admits to frequent CPAP use during the day. Pt was discharged home with home O2. Pt's abdominal pain minimally relieved with lactulose and lubiprostone. Provided with home rx and instructed on daily use with goal to have at least one bowel movement daily. Pt with a rather extensive cardiac history including thoracic AAA (stable), atrial fibrillation, congestive heart failure, and HTN. Patient was evaluated by cardiology, notably requiring no additional attention over hospital course. We did initiate IV lasix therapy with hope in aiding in SOB. She was instructed on continuing home dose lasix on discharge. Of note patient with history of chronic pain, her home regimen was followed during hospitalization and she is scheduled to f/u with pain management for continued treatment. Home health physical therapy was arranged for patient and she is to continue with home health nurse as prior to admission. Patient is stable for discharge and happy to be going home. - Additional Information Resuscitation Status: Full Code Discharge Diet: Cardiac Discharge Activity: Activity As Tolerated Referrals: CARLOTA GARCIA MD [ACTIVE STAFF] - AMY HERNÁNDEZ MD [Primary Care Provider] - 02/16/20 1:30 pm (Appointment will be with CHARLES Caba. Referral for pain management to be made by PCP. PCP office aware when follow-up appointment was made. Also, your birthday needs to be verified at the providers office.) Prescriptions: Lubiprostone [Amitiza 24 Mcg Capsule] 24 mcg PO DAILY #30 capsule Lactulose [Cephulac Syrup 20 gm/30 ml Udcup] 20 gm PO Q8 #1 udc Home Medications: Alprazolam 0.25 mg PO TID PRN 03/05/18 Aspirin [Aspirin 325 mg Tablet] 325 mg PO DAILY 03/05/18 Duloxetine HCl [Cymbalta] 60 mg PO DAILY 03/05/18 Fentanyl 25 mcg TD .Q3DAYS 03/05/18 Furosemide [Lasix] 20 mg PO QPM 03/05/18 Furosemide [Lasix] 80 mg PO QAM 03/05/18 Gabapentin [Neurontin 300 mg Capsule] 600 mg PO Q12 03/05/18 Magnesium Oxide 400 mg PO BID 03/05/18 Metoprolol Succinate [Toprol Xl] 12.5 mg PO QAM 03/05/18 Omeprazole 40 mg PO BID 03/05/18 Sacubitril/Valsartan [Entresto 24 mg/26 mg Tablet] 1 tab PO BID 03/05/18 Simvastatin [Zocor 10 mg Tablet] 10 mg PO QHS 03/05/18 Sucralfate [Carafate 1 gm Tablet] 1 gm PO TID 03/05/18 Ascorbic Acid [Vitamin C 500 mg Tablet] 500 mg PO DAILY 02/05/20 Biotin 1,000 mcg PO DAILY 02/05/20 Hydrocodone/Acetaminophen [Lannon 10-325 mg Tablet] 1 tab PO QIDP PRN 02/05/20 Isosorbide Mononitrate [Imdur 30 mg Tablet.er] 15 mg PO DAILY 02/05/20 Metaxalone [Skelaxin 800 mg Tablet] 800 mg PO DAILYP PRN 02/05/20 Multivitamin [Tab-A-Nikolai] 1 each PO DAILY 02/05/20 Potassium Chloride [Klor-Con M20] 20 meq PO BID 02/05/20 Lactulose [Cephulac Syrup 20 gm/30 ml Udcup] 20 gm PO Q8 #1 udc 02/10/20 Lubiprostone [Amitiza 24 Mcg Capsule] 24 mcg PO DAILY #30 capsule 02/10/20 History of Present Illiness History of Present Illness: As per admitting HPI 02/05/2020 "JENNIFER LAWRENCE is a 89 year old female who presented to the emergency room with a 1 month history of abdominal pain. She admitted numerous intermittent episodes of epigastric pain over the course of the last month. She has been evaluated for this abdominal pain several times at different locations with different providers. Her current episode of abdominal pain began suddenly at about 4 PM on 02/04/2020. The pain was constant and moderate in intensity without radiation. Her pain is associated with an increase in her chronic dyspnea. She denies other associated or accompanying signs and symptoms. She denies identification of any aggravating or ameliorating factors for her pain. In the emergency room she had an unremarkable abdominal pain evaluation, but on a CT of the abdomen and pelvis the lower portion of the chest revealed bilateral lower lobe groundglass infiltrates. Patient was noted to be hypoxic on room air and required supplemental oxygen at 2 L/min to maintain an adequate oxygen saturation. A COVID-19 test was performed and the patient was subsequently admitted to the hospital for further evaluation and treatment." Hospital Course Hospital Course: Patient will be admitted to the medical floor where she will receive routine supportive and symptomatic cares. She will receive supplemental oxygen via nasal cannula as needed to maintain an adequate oxygen saturation level. She will receive dexamethasone 6 mg IV daily after the initial 10 mg IV dose in the emergency room. She will be continued on CPAP while sleeping and resting during the day. She will receive morphine sulfate 2 to 4 mg IV every 2 hours as needed for pain. She will receive Ativan 1 mg IV every 4 hours as needed for anxiety or restlessness. She will receive a cardiac diet. 02/05/2020 Respiratory failure with bilateral pneumonia-the patient is being tested for Covid pneumonia. Currently she is on azithromycin due to her significant list of allergies. Will monitor closely overnight. She may need the addition of broader spectrum coverage. Continue supplemental oxygen with eventual goal of weaning back to room air. Interestingly she did mention that she uses her CPAP machine during the day and it is possible that she in fact requires home oxygen. We will further determine this during her hospitalization. Hypertension-resume baseline cardiac medications. Congestive heart failure-no echocardiogram on record at this hospital. She does see Dr. Guadalupe at [facility]. Will try to obtain records tomorrow. 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 Continue current medication regimen. Obstructive sleep apnea-CPAP has been ordered. And is available for daytime use if needed. Gastroesophageal reflux disease-continue proton pump inhibitor. Ascending thoracic aorta aneurysm-6.[address] scan. At 89 with her past medical history she is not a candidate for surgery. We will keep blood pressure well controlled and continue aspirin and statin therapy. Chronic pain-continue fentanyl patch, gabapentin as well as Lannon as needed. Anxiety-continue alprazolam and duloxetine. Hyperlipidemia-statin therapy Chronic abdominal pain-multiple imaging studies have been obtained. No discrete focus for her abdominal pain has been identified. Analgesia will be available. 02/06/2020 Respiratory failure with bilateral pneumonia-continue azithromycin. White blood cell count is normal and the patient is afebrile. Due to allergies I am hesitant to add a second antibiotic at this time. Will monitor closely. Continue to taper oxygen as tolerated. [id number] on current regimen. Heart failure-we will try and obtain last echocardiogram from cardiology office. Reflux-continue PPI Cardiovascular-stable on current regimen. Continue good blood pressure control with thoracic aortic aneurysm Hyperlipidemia-statin therapy Chronic back pain-p.o. meds and fentanyl patch Abdominal pain-imaging shows a large fecal burden but no other obvious abnormalities. There are some atherosclerotic changes but nothing that appears markedly stenotic. She is on chronic narcotic therapy with no stool softeners. Will start lactulose and lubiprostone. After multiple bowel movements hopefully her pain will resolve. 02/07/2020 Respiratory failure with bilateral pneumonia: Continue with azithromycin. Afebrile. Noted decrease in O2 sats when removed from supportive O2. Placed back on supplemental O2, 2L NC. Continue to monitor. Continue to wean. Hypertension: Cnt with current treatment regimen. Heart failure: Cardiology consulted, Dr. Moore saw the patient. Note was reviewed. Patient with history of systolic and diastolic heart failure without heart failure symptoms at this time. Continue outpatient heart failure regimen. Low-sodium diet and judicious fluids. Cardiology signed off at this time. Reflux: Potential cause of recurrent epigastric irritation. Continue with PPI. Aortic aneurysm: Patient seen by Dr. Moore cardiology. Recommends maintaining a blood pressure 130/80 or below. Atrial fibrillation: Patient seen by Dr. Moore cardiology. 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 Cnt current regimen. Abdominal pain: Imaging notable for large fecal variant. With history of chronic narcotic therapy without laxatives. Treated with lactulose and lubiprostone, she has had 4 total bowel movements with treatment. Notable improvement in symptoms overall. She continues to complain of abdominal pain. Continue with current treatment and monitor for pain. Suspect this will continue to improve and she has normalized bowel movements. Plan to d/c pt once stable O2 saturation on room air. Plan to dc with stool softener/laxative therapy to counter chronic narcotic use. 02/08/2020 Respiratory failure with bilateral pneumonia: Cnt azithromycin. Afebrile. Oxygen saturation continues to vary otherwise consistently been 100% 1 on 1 L nasal cannula. Remove supplemental oxygen at this time and monitor on room air. Hypertension: Controlled. Cnt with current treatment regimen. Heart failure: Patient with history of systolic and diastolic heart failure without heart failure symptoms at this time. Appreciated crackles bilateral lower lobes on exam. Implement IV Lasix today transition to p.o. Lasix tomorrow plan to discharge home tomorrow. Suspect this will help her breathing. Reflux: Potential cause of recurrent epigastric irritation. Continue with PPI. Aortic aneurysm: maintaining a blood pressure 130/80 or below. Atrial fibrillation: S/p AV node ablation and biv entricular pacemaker. Cnt current regimen. Abdominal pain: Notable improvement with lactulose and lubiprostone; plan to cnt tx as outpatient. chronic pain: Home tx includes fentanyl patch. Patient was provided this today. Plan: Transition from IV lasix to po lasix tomorrow. Suspect this will aid in ease of breathing. Dc home with lactulose and lubiprostone. Dc home with home health nurse and PT. Dc home with continued PPI tx. Recommend f/u with chronic pain doctor for further management of pain. 02/09/2020 Respiratory failure with bilateral pneumonia: Cnt with azithromycin. Has r eceived x5 days of therapy thus far. Plan to discontinue azithromycin tomorrow. Patient O2 sat drops to 82% while on room air at rest. With improvement in O2 sat with 2L oxygen nasal canula. Given patient's multiple comorbidities including obstructive sleep apnea, large thoracic ascending aortic aneurysm, congestive heart failure, atrial fibrillation and coronary artery disease patient candidate for home O2 Order for 2L NC home O2 with concentrator and portable. Hypertension: Controlled. Cnt with current regimen. Heart failure: Crackles improved. Plan to cnt IV lasix until discharge home, resume home medication at that time. Reflux: Continue with PPI. Aortic aneurysm: maintaining a blood pressure 130/80 or below. Educated pt of the BP goal recommend routine checks following dc. Abdominal pain: Notable improvement with lactulose and lubiprostone; plan to cnt tx as outpatient. chronic pain/Fibromyalgia: Fentanyl patch placed yesterday. Generalized weakness: Assessed by PT. Note reviewed. Recommends home health PT. Plan to implement this upon discharge. Plan: Plan to discharge patient home with home O2 and home health PT. Transition from IV lasix to PO lasix. Cnt lactulose and lubiprostone daily. Recommend f/u PCP within 1 week dc. F/u with pain management for further treatment of chronic pain. Physical Exam Vital Signs: Temp Pulse Resp BP Pulse Ox 98.2 F 95 15 112/57 L 92 02/10/20 13:10 02/10/20 13:10 02/10/20 13:10 02/10/20 13:10 02/10/20 13:10 Intake & Output 02/09/20 02/10/20 02/11/20 06:59 06:59 06:59 Intake Total 440 Output Total 1500 1500 Balance -1060 -1500 Weight 92.7 kg 92.7 kg Additional comments: General appearance: PRESENT: cooperative, obese Head exam: PRESENT: atraumatic, normocephalic Eye exam: PRESENT: EOMI Mouth exam: PRESENT: moist, tongue midline Neck exam: PRESENT: full ROM. ABSENT: tenderness Respiratory exam: PRESENT: decreased breath sounds, symmetrical. Crackles present bilateral lower lobes. ABSENT: rhonchi Cardiovascular exam: PRESENT: RRR, +S1, +S2. ABSENT: diastolic murmur, systolic murmur GI/Abdominal exam: PRESENT: normal bowel sounds, soft, tenderness - Primarily in the epigastric region. ABSENT: firm Extremities exam: PRESENT: full ROM. ABSENT: pedal edema Musculoskeletal exam: PRESENT: ambulatory, full ROM, tenderness - Diffuse states this is normal for her as she has history of fibromyalgia. ABSENT: deformity, dislocation Neurological exam: PRESENT: alert, awake, oriented to person, oriented to place, oriented to time, oriented to situation Psychiatric exam: PRESENT: anxious Skin exam: PRESENT: dry, intact, warm Results Laboratory Results: WBC 5.5 10^3/uL (4.0-10.5) 02/08/20 09:10 RBC 3.82 10^6/uL (3.72-5.28) 02/08/20 09:10 Hgb 12.8 g/dL (12.0-15.5) 02/08/20 09:10 Hct 38.1 % (36.0-47.0) 02/08/20 09:10 MCV 100 fl (80-97) H 02/08/20 09:10 MCH 33.6 pg (27.0-33.4) H 02/08/20 09:10 MCHC 33.7 g/dL (32.0-36.0) 02/08/20 09:10 RDW 13.6 % (11.5-14.0) 02/08/20 09:10 Plt Count 166 10^3/uL (150-450) 02/08/20 09:10 Lymph % (Auto) 12.7 % (13-45) L 02/04/20 22:47 [place] % (Auto) 5.9 % (3-13) 02/04/20 22:47 Eos % (Auto) 1.2 % (0-6) 02/04/20 22:47 Baso % (Auto) 0.4 % (0-2) 02/04/20 22:47 Absolute Neuts (auto) 4.3 10^3/uL (1.7-8.2) 02/04/20 22:47 Absolute Lymphs (auto) 0.7 10^3/uL (0.5-4.7) 02/04/20 22:47 Absolute Monos (auto) 0.3 10^3/uL (0.1-1.4) 02/04/20 22:47 Absolute Eos (auto) 0.1 10^3/uL (0.0-0.6) 02/04/20 22:47 Absolute Basos (auto) 0.0 10^3/uL (0.0-0.2) 02/04/20 22:47 Seg Neutrophils % 79.8 % (42-78) H 02/04/20 22:47 PT 13.9 SEC (11.4-15.4) 02/05/20 05:50 INR 1.05 02/05/20 05:50 APTT 34.4 SEC (23.5-35.8) 02/05/20 05:50 D-Dimer 0.43 ug/mL (0.00-0.50) 02/05/20 05:50 Carbonic Acid 1.45 mmol/L (1.05-1.35) H 02/04/20 23:10 HCO3/H2CO3 Ratio 22:1 02/04/20 23:10 ABG pH 7.44 (7.35-7.45) 02/04/20 23:10 ABG pCO2 48.1 mmHg (35-45) H 02/04/20 23:10 ABG pO2 55.9 mmHg (80-100) L 02/04/20 23:10 ABG HCO3 32.2 mmol/L (20-24) H 02/04/20 23:10 ABG Total CO2 33.6 mmol/L (21-25) H 02/04/20 23:10 ABG O2 Saturation 89.9 % (94-98) L 02/04/20 23:10 ABG Base Excess 7.0 mmol/L 02/04/20 23:10 FiO2 ROOM AIR 02/04/20 23:10 Sodium 138.6 mmol/L (137-145) 02/08/20 09:10 Potassium 3.9 mmol/L (3.6-5.0) 02/08/20 09:10 Chloride 88 mmol/L (98-107) L 02/08/20 09:10 Carbon Dioxide 39 mmol/L (22-30) H 02/08/20 09:10 Anion Gap 12 (5-19) 02/08/20 09:10 BUN 14 mg/dL (7-20) 02/08/20 09:10 Creatinine 0.46 mg/dL (0.52-1.25) L 02/08/20 09:10 Est GFR ( Amer) > 60 (>60) 02/08/20 09:10 Est GFR (MDRD) Non-Af > 60 (>60) 02/08/20 09:10 Glucose 118 mg/dL (75-110) H 02/08/20 09:10 Calcium 9.6 mg/dL (8.4-10.2) 02/08/20 09:10 Magnesium 2.2 mg/dL (1.6-2.3) 02/06/20 07:54 Ferritin 245.00 ng/mL (11.1-264.0) 02/04/20 22:47 Total Bilirubin 0.8 mg/dL (0.2-1.3) 02/06/20 07:54 Direct Bilirubin 0.2 mg/dL (0.0-0.4) 02/06/20 07:54 Neonat Total Bilirubin Not Reportable 02/06/20 07:54 Neonat Direct Bilirubin Not Reportable 02/06/20 07:54 Neonat Indirect Bili Not Reportable 02/06/20 07:54 AST 28 U/L (14-36) 02/06/20 07:54 ALT 12 U/L (<35) 02/06/20 07:54 Alkaline Phosphatase 64 U/L (38-126) 02/06/20 07:54 Troponin I < 0.012 ng/mL 02/04/20 22:47 C-Reactive Protein 13.4 mg/L (<10.0) H 02/04/20 22:47 NT-Pro-B Natriuret Pep 2120 pg/mL (<450) H 02/04/20 22:47 Total Protein 6.6 g/dL (6.3-8.2) 02/06/20 07:54 Albumin 3.8 g/dL (3.5-5.0) 02/06/20 07:54 Lipase 77.7 U/L (23-300) 02/04/20 22:47 Urine Color YELLOW 02/05/20 03:45 Urine Appearance SLIGHTLY-CLOUDY 02/05/20 03:45 Urine pH 5.0 (5.0-9.0) 02/05/20 03:45 Ur Specific [place] 1.021 02/05/20 03:45 Urine Protein 30 mg/dL (NEGATIVE) H 02/05/20 03:45 Urine Glucose (UA) NEGATIVE mg/dL (NEGATIVE) 02/05/20 03:45 Urine Ketones NEGATIVE mg/dL (NEGATIVE) 02/05/20 03:45 Urine Blood NEGATIVE (NEGATIVE) 02/05/20 03:45 Urine Nitrite NEGATIVE (NEGATIVE) 02/05/20 03:45 Urine Bilirubin NEGATIVE (NEGATIVE) 02/05/20 03:45 Urine Urobilinogen 2.0 mg/dL (<2.0) H 02/05/20 03:45 Ur Leukocyte Esterase NEGATIVE (NEGATIVE) 02/05/20 03:45 Urine WBC (Auto) 2 /HPF 02/05/20 03:45 Urine RBC (Auto) 1 /HPF 02/05/20 03:45 Squamous Epi Cells Auto 1 /HPF 02/05/20 03:45 Urine Mucus (Auto) RARE /LPF 02/05/20 03:45 Urine Ascorbic Acid 40 (NEGATIVE) H 02/05/20 03:45 COVID-19 Source See comment 02/05/20 01:07 EST COVID-19 (NUHA) Not Detected (Not Detect) 02/05/20 01:07 EST Influenza A (Rapid) NEGATIVE (NEGATIVE) 02/05/20 03:45 Influenza B (Rapid) NEGATIVE (NEGATIVE) 02/05/20 03:45 02/04/20 02/04/20 22:47 22:47 Troponin I < 0.012 NT-Pro-B Natriuret Pep 2120 H Impressions: Acute Abdomen Series 02/04/20 23:00 IMPRESSION: There are minimal bibasilar airspace opacities with trace effusions. The bowel gas pattern is nonobstructive and nonspecific. Abdomen/Pelvis CT 02/04/20 23:43 IMPRESSION: No acute abdominal process is seen though evaluation is significantly limited by the lack of intravenous contrast and hyperdense oral contrast. This causes significant streak artifact and limits evaluation. There are groundglass airspace opacities within the lung bases which may reflect edema or infection. Plan Time Spent: Greater than 30 Minutes Stroke Is this a Stroke Patient?: No Acute Heart Failure Is this a Heart Failure Patient?: Yes Documentation of LVEF assessment?: Yes LVEF: LVEF Greater Than 40% Anticoagulant Therapy: Yes Discharged on Evidence-Based Beta Blockers: Yes Discharged on ARNI?: Yes Discharged on ARB?: N/A-Discharged on ARNI Discharged on ACEI?: N/A Discharged on ARNI For LVEF <35%, discharged on Aldosterone Antagonist?: N/A (LVEF > or = 35%)
== END 2020-02-10 16:10 | disposition home or self-care (01) | DRG 193 ==
LOC: ER 22:33 → EH 02-05 01:28 → 3N 02-05 02:45 → 4W 02-06 18:25
PROVIDERS: ADMIT Emergency Medicine; ATTEND Physician Assistant
DX: J18.9 Pneumonia, unspecified organism (principal); J96.01 Acute respiratory failure with hypoxia; I50.42 Chronic combined systolic (congestive) and diastolic (congestive) heart failure; Z20.828 Contact with and (suspected) exposure to other viral communicable diseases; I11.0 Hypertensive heart disease with heart failure; E78.5 Hyperlipidemia, unspecified; K21.9 Gastro-esophageal reflux disease without esophagitis; G47.33 Obstructive sleep apnea (adult) (pediatric); F41.1 Generalized anxiety disorder; R10.13 Epigastric pain; I71.2 Thoracic aortic aneurysm, without rupture; G89.29 Other chronic pain; M54.9 Dorsalgia, unspecified; Z90.49 Acquired absence of other specified parts of digestive tract; Z96.653 Presence of artificial knee joint, bilateral; Z95.2 Presence of prosthetic heart valve; Z83.3 Family history of diabetes mellitus; Z82.49 Family history of ischemic heart disease and other diseases of the circulatory system; Z82.61 Family history of arthritis; Z88.8 Allergy status to other drugs, medicaments and biological substances; Z88.1 Allergy status to other antibiotic agents; Z88.3 Allergy status to other anti-infective agents; Z88.6 Allergy status to analgesic agent; Z88.2 Allergy status to sulfonamides; M79.7 Fibromyalgia; I25.2 Old myocardial infarction; Z95.0 Presence of cardiac pacemaker; Z91.041 Radiographic dye allergy status; Z96.612 Presence of left artificial shoulder joint
CPT/HCPCS: 36415; 74022; 74176; 80048; 80053; 81001; 82728; 82803; 83690; 83735; 83880; 84484; 85025; 85027; 85379; 85610; 85730; 86140; 87635; 87804; 93005; 93010; 94660; 96374; 96375; 99285; C9803; J0456; J1100; J1644; J1940; J2060; J2270; J2405; J3490; J7060; S0028

== ENCOUNTER 2020-02-11 10:24 | Observation (INO) | payer MEDICARE, BC ==
--- NOTE | 2020-02-11 10:35 | ER Document Report ---
ED General - General Stated Complaint: NOSE BLEED Time Seen by Provider: 02/11/20 10:34 TRAVEL OUTSIDE OF THE [place] IN LAST 30 DAYS: No - HPI Notes: 89-year-old female with a history of community-acquired bilateral pneumonia who was discharged from [facility] last night on supplemental oxygen and antibiotics presents to the emergency room with right anterior bleed from being on supplemental nasal cannula oxygen. Patient was brought in by EMS, she was given Afrin in the ambulance to help with her epi taxis patient states she keeps swallowing blood. She is on a Venturi mask to keep her pulse ox greater than 92%. Patient states the only blood thinner she is on is baby aspirin, was taken off her blood thinners last week. Denies any trauma. Patient states that she is feeling weak, she has not taken any of her medication this morning because she keeps bleeding from her nose. Patient is denying any chest pain. - Related Data Allergies/Adverse Reactions: bacitracin [From Neosporin ([id number])] Allergy (Verified 12/02/19 11:25) cephalexin Allergy (Verified 12/02/19 11:25) ciprofloxacin [From Cipro] Allergy (Verified 12/02/19 11:25) desipramine [From Norpramin] Allergy (Verified 12/02/19 11:25) iodine Allergy (Verified 12/02/19 11:25) miconazole [From Neosporin AF] Allergy (Verified 12/02/19 11:25) neomycin [From Neosporin ([id number])] Allergy (Verified 12/02/19 11:25) polymyxin B [From Neosporin ([id number])] Allergy (Verified 12/02/19 11:25) promethazine [From Phenergan] Allergy (Verified 12/02/19 11:25) Sulfa (Sulfonamide Antibiotics) Allergy (Verified 12/02/19 11:25) codeine Adverse Reaction (Verified 12/02/19 11:25) Iodinated Contrast Media [Iodinated Contrast- Oral and IV Dye] Adverse Reaction (Verified 12/27/19 21:53) Past Medical History - General Information source: Patient - Social History Smoking Status: Unknown if Ever Smoked Family History: Arthritis, DM, Hypertension, Malignancy - Past Medical History Cardiac Medical History: Reports: Hx Atrial Fibrillation, Hx Congestive Heart Failure, Hx Coronary Artery Disease - HIGH CHOLESTEROL, Hx Heart Attack, Hx Hypercholesterolemia, Hx Hypertension, 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 Denies: Hx Cirrhosis, Hx Hepatitis Musculoskeletal Medical History: Reports Hx Arthritis, Reports Hx Fibromyalgia Skin Medical History: Denies Hx Eczema, Denies Hx Psoriasis Psychiatric Medical History: Denies: Hx Depression Traumatic Medical History: Reports: Hx Fractures - lumbar spine Infectious Medical History: Denies: Hx Hepatitis Past Surgical History: Reports: Hx Appendectomy, Hx Cardiac Surgery, Hx Hysterectomy, Hx Kidney (Renal Surgery), Hx Orthopedic Surgery - bilateral TKR, L shoulder replacement, Hx Valve Replacement - Mitral valve - Immunizations Hx Diphtheria, Pertussis, Tetanus Vaccination: Yes Hx Pneumococcal Vaccination: 04/06/14 Review of Systems - Review of Systems Constitutional: No symptoms reported EENT: See HPI Cardiovascular: No symptoms reported Respiratory: See HPI Gastrointestinal: No symptoms reported Genitourinary: No symptoms reported Female Genitourinary: No symptoms reported Musculoskeletal: No symptoms reported Skin: No symptoms reported Hematologic/Lymphatic: No symptoms reported Neurological/Psychological: No symptoms reported Physical Exam - Vital signs Vitals: Temp Pulse Resp BP Pulse Ox 98.3 F 69 16 117/64 89 L 02/11/20 10:35 02/11/20 10:35 02/11/20 10:35 02/11/20 10:35 02/11/20 10:35 - Notes Notes: MEDICATIONS: I agree with the patient medications as charted by the RN. ALLERGIES: I agree with the allergies as charted by the RN. PAST MEDICAL HISTORY/PAST SURGICAL HISTORY: Reviewed and agree as charted by RN. SOCIAL HISTORY: Reviewed and agree as charted by RN. FAMILY HISTORY: No significant familial comorbid conditions directly related to patient complaint EXAM: Reviewed vital signs as charted by RN. PHYSICAL EXAMINATION: reviewed vital signs by RN GENERAL: Chronically ill malnourished and in no acute distress. HEAD: Atraumatic, normocephalic. EYES: Pupils equal round and reactive to light, extraocular movements intact, conjunctiva are normal. ENT: Nares patent, oropharynx clear without exudates. Moist mucous membranes. No septal hematoma bilaterally, noted right anterior bleed, mild. No blood in posterior pharynx. Uvula midline, no deviation. No trismus. NECK: Normal range of motion, supple without lymphadenopathy LUNGS: Diminished sounds clear to auscultation bilaterally and equal. No wheezes rales or rhonchi. HEART: Regular rate and rhythm without murmurs ABDOMEN: Soft, nontender, nondistended abdomen. No guarding, no rebound. No masses appreciated. Female : deferred Musculoskeletal: Normal range of motion, no pitting or edema. No cyanosis. NEUROLOGICAL: Cranial nerves grossly intact. Normal speech, normal gait. No rmal sensory, motor exams PSYCH: Normal mood, normal affect. SKIN: Warm, Dry, normal turgor, no rashes or lesions noted. Course - Re-evaluation Re-evalutation: 02/11/20 14:02 Patient on supplemental Venturi mask. Afebrile. Consulted with Dr. Jason Donaldson, hospitalist at 11am, she did discharged the patient from her service [facility] to home and is aware of her medical status and medical history. Anika Fagan did evaluate patient at bedside. Dr. Donaldson requested that I consult with Dr. Brown, ENT specialist on-call, I did talk to him at 12:00, he stated that he would have to pack the nose after he cauterized if she did require cauterization. Patient did have spontaneous bleeding without having nasal cannula in place after [address] Donaldson stated that she would admit for observation for her epistaxis. 02/11/20 16:59 - Vital Signs Vital signs: Temp Pulse Resp BP Pulse Ox 98.2 F 68 19 143/89 H 100 02/11/20 14:44 02/11/20 14:44 02/11/20 14:44 02/11/20 14:44 02/11/20 14:44 - Laboratory Result Diagrams: 02/11/20 12:32 02/11/20 12:32 Laboratory results interpreted by me: 02/11/20 02/11/20 12:32 12:32 MCV 98 H MCH 33.9 H Chloride 87 L Carbon Dioxide 45 H* Creatinine 0.50 L Glucose 120 H Discharge - Discharge Clinical Impression: Acute anterior epistaxis, Community acquired bilateral lower lobe pneumonia, COVID-19 virus test result unknown Condition: Stable Disposition: ADMITTED OBSERVATION Admitting Provider: Anika (Hospitalist)
[2020-02-11] MEDS ORDERED: SILVER NITRATE APPLICATOR 1 APPLIC STICK..EA. 10/PACKAGE TOP ONE (11:22)
[2020-02-11] MEDS: OXYMETAZOLINE HCL 0.05% NASAL SPRAY 15 ML BOTTLE ONE ×2 (11:33→11:34)
[2020-02-11] MEDS ORDERED: OXYMETAZOLINE HCL 0.05% NASAL SPRAY 15 ML BOTTLE NASL ONE (12:00)
[2020-02-11] MEDS ORDERED: HYDROCODONE/ACETAMINOPHEN 10-325 MG TABLET PO PRN (12:06)
[2020-02-11] MEDS ORDERED: FUROSEMIDE 40 MG TABLET ONE (12:42)
[2020-02-11 12:46] LABS: HEMATOCRIT 38.7 % (36.0-47.0); HEMOGLOBIN 13.4 g/dL (12.0-15.5); MEAN CORPUSCULAR HEMOGLOBIN 33.9 pg (27.0-33.4); MEAN CORPUSCULAR HGB CONC 34.6 g/dL (32.0-36.0); MEAN CORPUSCULAR VOLUME 98 fl (80-97); PLATELET COUNT 203 10^3/uL (150-450); RED BLOOD COUNT 3.95 10^6/uL (3.72-5.28); RED CELL DISTRIBUTION WIDTH 13.5 % (11.5-14.0); WHITE BLOOD COUNT 4.4 10^3/uL (4.0-10.5)
[2020-02-11] MEDS ORDERED: GABAPENTIN 300 MG CAPSULE PO ONE (13:00)
[2020-02-11] MEDS ORDERED: METOPROLOL SUCCINATE 25 MG TAB.SR.24H PO ONE (13:00)
[2020-02-11] MEDS ORDERED: FUROSEMIDE 80 MG TABLET PO ONE (13:00)
[2020-02-11 13:01] LABS: BLOOD UREA NITROGEN 20 mg/dL (7-20); CALCIUM 10.1 mg/dL (8.4-10.2); CHLORIDE 87 mmol/L (98-107); GLUCOSE 120 mg/dL (75-110); POTASSIUM 3.7 mmol/L (3.6-5.0)
[2020-02-11 13:22] LABS: ANION GAP 7 (5-19)
[2020-02-11 13:23] LABS: CARBON DIOXIDE 45 mmol/L (22-30)
[2020-02-11] MEDS ORDERED: METAXALONE 800 MG TABLET PO PRN (17:37)
[2020-02-11] MEDS ORDERED: ALPRAZOLAM 0.25 MG TABLET PO PRN (17:37)
[2020-02-11] MEDS ORDERED: OXYMETAZOLINE HCL 0.05% NASAL SPRAY 15 ML BOTTLE NASL PRN (18:00)
[2020-02-11] MEDS: SUCRALFATE 1 GM TABLET PO SCH (18:05)
[2020-02-11] MEDS: HYDROCODONE/ACETAMINOPHEN 10-325 MG TABLET PO PRN (18:25)
--- NOTE | 2020-02-11 18:50 | PDOC H&P ---
History of Present Illness Admission Date/PCP: 02/11/20 13:07 AMY HERNÁNDEZ MD Patient complains of: Nosebleed History of Present Illness: LIBBY COTTON is a 89 year old female who presented for evaluation of right nostril nosebleed. Reports sudden onset nosebleed upon rising from rest this am. Lasted approximately 1 hour in duration. Initially resolved with Afrin with single spontaneous resolution in the ED. This was successfully treated with additional Afrin and packing of the nose. Without recurrence sense. She receives supplemental O2 via NC at home. Denies hx of epistaxis in the past. Denies trauma or recent surgery. Takes 81mg ASA daily, otherwise denies anticoagulation in past week. Denies hx bleeding disorder. Denies hx seasonal allergies. She reports headache which she tells me is from her not eating today. Also reports weakness, but states this is chronic and consistent with her baseline. Patient was discharged from [facility] yesterday following treatment of CAP and evaluation of chronic abdominal pain. She was discharged home with supplemental O2 due to consistently low O2 sats <90 on room air. Upon evaluation in the ED patient was found to be hemodynamically stable with Hgb 13.4. Chemistries notable for chloride-responsive alkalosis and low creatinine. ENT was consulted, recommended nasal packing followed by cauterization if necessary. Pt was then admitted to the hospitalist service for observation and further treatment. 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 Pulmonary Medical History: Reports: Bronchitis, Sleep Apnea Denies: Asthma, Chronic Obstructive Pulmonary Disease (COPD), Pneumonia Neurological Medical History: Denies: Seizures Endocrine Medical History: Denies: Diabetes Mellitus Type 1, Diabetes Mellitus Type 2, Hyperthyroidism, Hypothyroidism GI Medical History: Reports: Gastroesophageal Reflux Disease Denies: Cirrhosis, Hepatitis Musculoskeltal Medical History: Reports: Arthritis, Fibromyalgia Skin Medical History: Denies: Eczema, Psoriasis Psychiatric Medical History: Denies: Depression Hematology: Reports: Anemia Denies: Bleeding Tendencies Past Surgical History Past Surgical History: Reports: Appendectomy, Hysterectomy, Orthopedic Surgery - bilateral TKR, L shoulder replacement, Valve Replacement - Mitral valve Social History Information Source: Patient Lives with: Family Smoking Status: Unknown if Ever Smoked Electronic Cigarette use?: No Frequency of Alcohol Use: None Hx Recreational Drug Use: No Drugs: None Hx Prescription Drug Abuse: No - Advance Directive Resuscitation Status: Full Code Family History Family History: Arthritis, DM, Hypertension, Malignancy, Other - Denies FMHx of bleeding disorders Parental Family History Reviewed: Yes Children Family History Reviewed: Yes Sibling(s) Family History Reviewed.: Yes Medication/Allergy Home Medications: Alprazolam 0.25 mg PO TID PRN 03/05/18 Aspirin [Aspirin 325 mg Tablet] 325 mg PO DAILY 03/05/18 Duloxetine HCl [Cymbalta] 60 mg PO DAILY 03/05/18 Fentanyl 25 mcg TD .Q3DAYS 03/05/18 Furosemide [Lasix] 20 mg PO QPM 03/05/18 Furosemide [Lasix] 80 mg PO QAM 03/05/18 Gabapentin [Neurontin 300 mg Capsule] 600 mg PO Q12 03/05/18 Magnesium Oxide 400 mg PO BID 03/05/18 Metoprolol Succinate [Toprol Xl] 12.5 mg PO QAM 03/05/18 Omeprazole 40 mg PO BID 03/05/18 Sacubitril/Valsartan [Entresto 24 mg/26 mg Tablet] 1 tab PO BID 03/05/18 Simvastatin [Zocor 10 mg Tablet] 10 mg PO QHS 03/05/18 Sucralfate [Carafate 1 gm Tablet] 1 gm PO TID 03/05/18 Ascorbic Acid [Vitamin C 500 mg Tablet] 500 mg PO DAILY 02/05/20 Biotin 1,000 mcg PO DAILY 02/05/20 Hydrocodone/Acetaminophen [Plano 10-325 mg Tablet] 1 tab PO QIDP PRN 02/05/20 Isosorbide Mononitrate [Imdur 30 mg Tablet.er] 15 mg PO DAILY 02/05/20 Metaxalone [Skelaxin 800 mg Tablet] 800 mg PO DAILYP PRN 02/05/20 Multivitamin [Tab-A-Nikolai] 1 each PO DAILY 02/05/20 Potassium Chloride [Klor-Con M20] 20 meq PO BID 02/05/20 Allergies/Adverse Reactions: bacitracin [From Neosporin ([id number])] Allergy (Verified 12/02/19 11:25) cephalexin Allergy (Verified 12/02/19 11:25) ciprofloxacin [From Cipro] Allergy (Verified 12/02/19 11:25) desipramine [From Norpramin] Allergy (Verified 12/02/19 11:25) iodine Allergy (Verified 12/02/19 11:25) miconazole [From Neosporin AF] Allergy (Verified 12/02/19 11:25) neomycin [From Neosporin ([id number])] Allergy (Verified 12/02/19 11:25) polymyxin B [From Neosporin ([id number])] Allergy (Verified 12/02/19 11:25) promethazine [From Phenergan] Allergy (Verified 12/02/19 11:25) Sulfa (Sulfonamide Antibiotics) Allergy (Verified 12/02/19 11:25) codeine Adverse Reaction (Verified 12/02/19 11:25) Iodinated Contrast Media [Iodinated Contrast- Oral and IV Dye] Adverse Reaction (Verified 12/27/19 21:53) Review of Systems Constitutional: PRESENT: headache(s), weakness, weight loss. ABSENT: anorexia, chills, fever(s) Eyes: ABSENT: visual disturbances Ears: ABSENT: hearing changes Nose, Mouth, and Throat: PRESENT: headache(s), other - Nosebleed, right. ABSENT: vertigo Cardiovascular: ABSENT: chest pain, dyspnea on exertion, palpitations Respiratory: ABSENT: cough, dyspnea Gastrointestinal: PRESENT: abdominal pain - chronic. ABSENT: diarrhea, nausea, vomiting Genitourinary: ABSENT: difficulty urinating, dysuria, hematuria Musculoskeletal: PRESENT: back pain - chronic Integumentary: ABSENT: pruritus Neurological: PRESENT: weakness. ABSENT: abnormal gait, abnormal speech, confusion, dizziness, numbness, syncope, tingling, tremor(s), vertigo Psychiatric: PRESENT: anxiety - chronic, depression - chronic Endocrine: ABSENT: polydipsia, polyphagia, polyuria Hematologic/Lymphatic: PRESENT: as per HPI. ABSENT: easy bleeding, easy bruising Allergic/Immunologic: ABSENT: seasonal rhinorrhea Physical Exam Vital Signs: Temp Pulse Resp BP Pulse Ox 98.2 F 68 19 143/89 H 100 02/11/20 14:44 02/11/20 14:44 02/11/20 14:44 02/11/20 14:44 02/11/20 14:44 Intake & Output 02/10/20 02/11/20 02/12/20 06:59 06:59 06:59 Weight 86.8 kg Additional comments: General appearance: PRESENT: cooperative, obese, in no acute distress Head exam: PRESENT: atraumatic, normocephalic Eye exam: PRESENT: EOMI, PERRL Mouth exam: PRESENT: moist, tongue midline, without post-pharyngeal erythema. Patient laying with head tilted back, there is notable streaking of blood in posterior pharynx. Nose: Nares are patent. The right nostril notable for dried/crusted dark red blood. No septal hematoma noted. Left nare without blood. Neck exam: PRESENT: full ROM. ABSENT: tenderness Respiratory exam: PRESENT: Lungs are clear to auscultation bilaterally, symmetrical. ABSENT: rhonchi Cardiovascular exam: PRESENT: RRR, +S1, +S2. ABSENT: diastolic murmur, systolic murmur GI/Abdominal exam: PRESENT: normal bowel sounds, soft ABSENT: firm Extremities exam: PRESENT: full ROM. ABSENT: pedal edema Musculoskeletal exam: PRESENT: ambulatory, full ROM. ABSENT: deformity, dislocation Neurological exam: PRESENT: alert, awake, oriented to person, oriented to place, oriented to time, oriented to situation Psychiatric exam: PRESENT: Appropriate mood and affect. Skin exam: PRESENT: dry, intact, warm Results Laboratory Results: 02/11/20 12:32 02/11/20 12:32 02/11/20 02/11/20 12:32 12:32 WBC 4.4 RBC 3.95 Hgb 13.4 Hct 38.7 MCV 98 H MCH 33.9 H MCHC 34.6 RDW 13.5 Plt Count 203 Sodium 138.9 Potassium 3.7 Chloride 87 L Carbon Dioxide 45 H* Anion Gap 7 BUN 20 Creatinine 0.50 L Est GFR ( Amer) > 60 Glucose 120 H Calcium 10.1 Magnesium 2.3 Assessment and Plan - Diagnosis (1) Acute anterior epistaxis Is this a current diagnosis for this admission?: Yes Plan: Minor bleed, resolved with Afrin x2 and nasal packing. Without significant blood loss (Hgb 13.4). Vital sings stable. AAOx3. Airways patent. Observe patient overnight. Consider chemical/electrical cautery if recurrence of bleed. Hold ASA tonight. (2) Chloride-responsive metabolic alkalosis Is this a current diagnosis for this admission?: Yes Plan: Chloride 87 Carbon Dioxide 45 Likely secondary to dieresis on recent admission Hold Lasix today and tomorrow (Pt did not take lasix today) (3) On home oxygen therapy Is this a current diagnosis for this admission?: Yes Plan: Likely the cause of pt's anterior nosebleed. Changed from NC to partial non-rebreather mask. Will organize for pt to have non-rebreather mask for home O2 as well. (4) Hypertension Qualifiers: Hypertension type: essential hypertension Qualified Code(s): I10 - Essential (primary) hypertension Is this a current diagnosis for this admission?: Yes Plan: Hx HTN though not elevated at time of admission, thus less likely cause of nosebleed. Resume home medications. Monitor daily. (5) Fibromyalgia Is this a current diagnosis for this admission?: Yes Plan: Followed by pain clinic. Initiate home pain regimen. - Time Time Spent with patient: 35 or more minutes Medications reviewed and adjusted accordingly: Yes Anticipated Discharge Disposition: Home, Self Care Anticipated Discharge Timeframe: within 24 hours
[2020-02-11] MEDS ORDERED: SIMVASTATIN 10 MG TABLET PO SCH (22:00)
[2020-02-11] MEDS: SACUBITRIL/VALSARTAN 24 MG/26 MG TABLET PO SCH (22:22)
[2020-02-11] MEDS: GABAPENTIN 300 MG CAPSULE PO SCH (22:22)
[2020-02-12] MEDS: HYDROCODONE/ACETAMINOPHEN 10-325 MG TABLET PO PRN ×3 (01:11→11:02)
[2020-02-12 06:12] LABS: HEMATOCRIT 39.2 % (36.0-47.0); HEMOGLOBIN 13.2 g/dL (12.0-15.5); MEAN CORPUSCULAR HEMOGLOBIN 33.1 pg (27.0-33.4); MEAN CORPUSCULAR HGB CONC 33.7 g/dL (32.0-36.0); MEAN CORPUSCULAR VOLUME 98 fl (80-97); PLATELET COUNT 198 10^3/uL (150-450); RED BLOOD COUNT 3.99 10^6/uL (3.72-5.28); RED CELL DISTRIBUTION WIDTH 13.3 % (11.5-14.0); WHITE BLOOD COUNT 4.7 10^3/uL (4.0-10.5)
[2020-02-12] MEDS ORDERED: METOPROLOL SUCCINATE 25 MG TAB.SR.24H PO SCH (08:00)
[2020-02-12 09:02] VITALS: BP 131/66
[2020-02-12] MEDS ORDERED: ISOSORBIDE MONONITRATE 30 MG TAB.ER.24H PO SCH (10:00)
[2020-02-12] MEDS ORDERED: DULOXETINE HCL 30 MG CAPSULE.DR PO SCH (10:00)
[2020-02-12] MEDS ORDERED: ASCORBIC ACID 500 MG TABLET PO SCH (10:00)
[2020-02-12] MEDS ORDERED: MULTIVITAMIN TABLET PO SCH (10:00)
[2020-02-12] MEDS: SACUBITRIL/VALSARTAN 24 MG/26 MG TABLET PO SCH (10:04)
[2020-02-12] MEDS: GABAPENTIN 300 MG CAPSULE PO SCH (10:05)
[2020-02-12] MEDS: SUCRALFATE 1 GM TABLET PO SCH (10:05)
--- NOTE | 2020-02-12 12:29 | PDOC DISCHARGE SUMMARY ---
Impression - Admit/DC Date/PCP Admission Date/Primary Care Provider: 02/11/20 13:07 AMY HERNÁNDEZ MD Discharge Date: 02/12/20 - Discharge Diagnosis (1) Acute anterior epistaxis Is this a current diagnosis for this admission?: Yes (2) Chloride-responsive metabolic alkalosis Is this a current diagnosis for this admission?: Yes (3) On home oxygen therapy Is this a current diagnosis for this admission?: Yes (4) Hypertension Is this a current diagnosis for this admission?: Yes (5) Fibromyalgia Is this a current diagnosis for this admission?: Yes - Assessment Summary: (1) Acute anterior epistaxis Minor bleed, likely secondary to recent initiation of home O2 via NC and recent hospitalization requiring supplemental O2 NC entire course. Resolved with Afrin x2 and nasal packing in the ED. Admitted for overnight observation without acute bleed. Without significant blood loss (Hgb 13.4 -> 13.2). Hemodynamically stable on discharge with patent nares bilaterally. ASA was held overnight, may resume today. Discussed prevention and treatment of recurrence (see plan below) with the patient and her sister in detail. Patient was made aware that she may experience dark/red colored stools following nose bleed. The patient and her sister both report understanding and agreement to means or treatment. She is stable for discharge and happy to be going home. (2) Chloride-responsive metabolic alkalosis Chloride 87 and Carbon Dioxide 45. Home lasix 80mg with recent IV dieresis during recent hospitalization. Held lasix yesterday, continue to hold today. May resume current dose tomorrow. (3) On home oxygen therapy Likely the cause of pt's anterior nosebleed. Changed from NC to simple mask. Dc home with simple mask. Organized addition of humidifier to home O2. - Additional Information Resuscitation Status: Full Code Discharge Diet: Cardiac Discharge Activity: Activity As Tolerated Referrals: AMY HERNÁNDEZ MD [Primary Care Provider] - Follow up as needed Home Medications: Alprazolam 0.25 mg PO TID PRN 03/05/18 Aspirin [Aspirin 325 mg Tablet] 325 mg PO DAILY 03/05/18 Duloxetine HCl [Cymbalta] 60 mg PO DAILY 03/05/18 Fentanyl 25 mcg TD .Q3DAYS 03/05/18 Furosemide [Lasix] 20 mg PO QPM 03/05/18 Furosemide [Lasix] 80 mg PO QAM 03/05/18 Gabapentin [Neurontin 300 mg Capsule] 600 mg PO Q12 03/05/18 Magnesium Oxide 400 mg PO BID 03/05/18 Metoprolol Succinate [Toprol Xl] 12.5 mg PO QAM 03/05/18 Omeprazole 40 mg PO BID 03/05/18 Sacubitril/Valsartan [Entresto 24 mg/26 mg Tablet] 1 tab PO BID 03/05/18 Simvastatin [Zocor 10 mg Tablet] 10 mg PO QHS 03/05/18 Sucralfate [Carafate 1 gm Tablet] 1 gm PO TID 03/05/18 Ascorbic Acid [Vitamin C 500 mg Tablet] 500 mg PO DAILY 02/05/20 Biotin 1,000 mcg PO DAILY 02/05/20 Hydrocodone/Acetaminophen [[place] 10-325 mg Tablet] 1 tab PO QIDP PRN 02/05/20 Isosorbide Mononitrate [Imdur 30 mg Tablet.er] 15 mg PO DAILY 02/05/20 Metaxalone [Skelaxin 800 mg Tablet] 800 mg PO DAILYP PRN 02/05/20 Multivitamin [Tab-A-Nikolai] 1 each PO DAILY 02/05/20 Potassium Chloride [Klor-Con M20] 20 meq PO BID 02/05/20 History of Present Illiness History of Present Illness: LIBBY COTTON is a 89 year old female who presented for evaluation of right nostril nosebleed. Reports sudden onset nosebleed upon rising from rest this am. Lasted approximately 1 hour in duration. Initially resolved with Afrin with single spontaneous resolution in the ED. This was successfully treated with additional Afrin and packing of the nose. Without recurrence sense. She receives supplemental O2 via NC at home. Denies hx of epistaxis in the past. Denies trauma or recent surgery. Takes 81mg ASA daily, otherwise denies anticoagulation in past week. Denies hx bleeding disorder. Denies hx seasonal allergies. She reports headache which she tells me is from her not eating today. Also reports weakness, but states this is chronic and consistent with her baseline. Patient was discharged from [facility] yesterday following treatment of CAP and evaluation of chronic abdominal pain. She was discharged home with supplemental O2 due to consistently low O2 sats <90 on room air. Upon evaluation in the ED patient was found to be hemodynamically stable with Hgb 13.4. Chemistries notable for chloride-responsive alkalosis and low creatinine. ENT was consulted, recommended nasal packing followed by cauterization if necessary. Pt was then admitted to the hospitalist service for observation and further treatment. Physical Exam Vital Signs: Temp Pulse Resp BP Pulse Ox 97.7 F 70 18 131/66 H 93 02/12/20 10:38 02/12/20 10:38 02/12/20 10:38 02/12/20 07:12 02/12/20 10:54 Intake & Output 02/11/20 02/12/20 02/13/20 06:59 06:59 06:59 Intake Total 690 500 Output Total 400 Balance 290 500 Weight 86.8 kg Additional comments: General appearance: PRESENT: cooperative, obese, in no acute distress Head exam: PRESENT: atraumatic, normocephalic Eye exam: PRESENT: EOMI, PERRL Mouth exam: PRESENT: moist, tongue midline, without post-pharyngeal erythema. Airway patent. Without blood in posterior oropharynx Nose: Nares are patent. No septal hematoma noted. Left and right nares are without blood. Neck exam: PRESENT: full ROM. ABSENT: tenderness Respiratory exam: PRESENT: Lungs are clear to auscultation bilaterally, symmetrical. ABSENT: rhonchi Cardiovascular exam: PRESENT: RRR, +S1, +S2. ABSENT: diastolic murmur, systolic murmur GI/Abdominal exam: PRESENT: normal bowel sounds, soft ABSENT: firm Extremities exam: PRESENT: full ROM. ABSENT: pedal edema Musculoskeletal exam: PRESENT: ambulatory, full ROM. ABSENT: deformity, dislocation Neurological exam: PRESENT: alert, awake, oriented to person, oriented to place, oriented to time, oriented to situation Psychiatric exam: PRESENT: Appropriate mood and affect. Skin exam: PRESENT: dry, intact, warm Results Laboratory Results: WBC 4.7 10^3/uL (4.0-10.5) 02/12/20 05:21 RBC 3.99 10^6/uL (3.72-5.28) 02/12/20 05:21 Hgb 13.2 g/dL (12.0-15.5) 02/12/20 05:21 Hct 39.2 % (36.0-47.0) 02/12/20 05:21 MCV 98 fl (80-97) H 02/12/20 05:21 MCH 33.1 pg (27.0-33.4) 02/12/20 05:21 MCHC 33.7 g/dL (32.0-36.0) 02/12/20 05:21 RDW 13.3 % (11.5-14.0) 02/12/20 05:21 Plt Count 198 10^3/uL (150-450) 02/12/20 05:21 Sodium 138.9 mmol/L (137-145) 02/11/20 12:32 Potassium 3.7 mmol/L (3.6-5.0) 02/11/20 12:32 Chloride 87 mmol/L (98-107) L 02/11/20 12:32 Carbon Dioxide 45 mmol/L (22-30) H* 02/11/20 12:32 Anion Gap 7 (5-19) 02/11/20 12:32 BUN 20 mg/dL (7-20) 02/11/20 12:32 Creatinine 0.50 mg/dL (0.52-1.25) L 02/11/20 12:32 Est GFR ( Amer) > 60 (>60) 02/11/20 12:32 Est GFR (MDRD) Non-Af > 60 (>60) 02/11/20 12:32 Glucose 120 mg/dL (75-110) H 02/11/20 12:32 Calcium 10.1 mg/dL (8.4-10.2) 02/11/20 12:32 Magnesium 2.3 mg/dL (1.6-2.3) 02/11/20 12:32 Plan Plan of Treatment: Nosebleed prevention: 1. Please use a Q-tip to apply Vaseline to the brim of your nostril and just inside your nostril. Do this at least twice daily. DO NOT use your finger, this can increase risk of damage or bleeding. 2. Please use a simple mask on your home 02 instead of the nasal cannula prongs. 3. Please use a dehumidifier on your oxygen, this should be provided by your oxygen company. In the event a nosebleed happens again: Because you are getting oxygen there is a chance that you will get a nosebleed again. This is ok. Please follow the recommendations below if you get a nosebleed again. 1. Apply pressure at the base of your nose, this will plug your nose and prevent any blood from dripping down the back of your throat. 2. Clean your head slightly forward. 3. Apply pressure for 10 to 15 minutes total. 4. You can apply a tissue paper into your nostril if you still notice bleeding. 5. Once bleeding slows take Afrin spray and apply 2 sprays into the nostril that is bleeding. This will help stop the bleeding. Some important notes: 1. You may find your stools to be dark in color or have red coloring, this is to be expected. 2. Please continue taking your baby aspirin (81 mg) daily. 3. We have held your fluid pill (lasix) for yesterday and today. You can resume your Lasix as prescribed tomorrow. Time Spent: Greater than 30 Minutes Stroke Is this a Stroke Patient?: No Acute Heart Failure Is this a Heart Failure Patient?: No
== END 2020-02-12 12:07 | disposition home health service (06) ==
LOC: ER 10:24 → EH 13:07 → 5 14:42
PROVIDERS: ADMIT Hospitalist; ATTEND Physician Assistant
DX: R04.0 Epistaxis (principal); E87.3 Alkalosis; Z99.81 Dependence on supplemental oxygen; M79.7 Fibromyalgia; I11.0 Hypertensive heart disease with heart failure; I50.9 Heart failure, unspecified; R53.1 Weakness; R51.9 Headache, unspecified; E66.9 Obesity, unspecified; I48.91 Unspecified atrial fibrillation; R63.4 Abnormal weight loss; J18.9 Pneumonia, unspecified organism; G89.29 Other chronic pain; R10.9 Unspecified abdominal pain; M54.9 Dorsalgia, unspecified; F41.9 Anxiety disorder, unspecified; E78.5 Hyperlipidemia, unspecified; I25.2 Old myocardial infarction; F32.9 Major depressive disorder, single episode, unspecified; Z95.4 Presence of other heart-valve replacement; Z90.49 Acquired absence of other specified parts of digestive tract; Z79.82 Long term (current) use of aspirin; I25.10 Atherosclerotic heart disease of native coronary artery without angina pectoris; Z79.899 Other long term (current) drug therapy
CPT/HCPCS: 99285; 36415 ×2; 83735; 85027 ×2; 80048; G0378 ×2; A9270 ×17; J3490

== ENCOUNTER 2020-03-01 20:51 | Emergency (ER) | payer MEDICARE, BC ==
[2020-03-01] MEDS ORDERED: MORPHINE SULFATE 10 MG/ML INJ IV ONE (21:17)
[2020-03-01] MEDS ORDERED: ONDANSETRON HCL INJ/PF 4 MG/2 ML SDV IV ONE (21:18)
[2020-03-01] MEDS ORDERED: TRANEXAMIC ACID INJ/PF 1,000 MG/10 ML SDV NEB ONE (21:18)
[2020-03-01] MEDS ORDERED: OXYMETAZOLINE HCL 0.05% NASAL SPRAY 15 ML BOTTLE NASL ONE (21:26)
--- NOTE | 2020-03-01 21:47 | ER Document Report ---
ED Head/Face/Scalp Injury - General Chief Complaint: Nose Bleed Stated Complaint: NOSE BLEED Time Seen by Provider: 03/01/20 21:13 Primary Care Provider: AMY HERNÁNDEZ MD [Primary Care Provider] - Follow up as needed Mode of Arrival: Medic Information source: Patient, Emergency Med Personnel Notes: LAST PRIOR ED VISIT AND NOTES Attending Provider: ILSA AVILA Date: 02/11/20 10:34 D General Stated Complaint: NOSE BLEED Time Seen by Provider: 02/11/20 10:34 TRAVEL OUTSIDE OF THE [place] IN LAST 30 DAYS: No - HPI Notes: 89-year-old female with a history of community-acquired bilateral pneumonia who was discharged from [facility] last night on supplemental oxygen and antibiotics presents to the emergency room with right anterior bleed from being on supplemental nasal cannula oxygen. Patient was brought in by EMS, she was given Afrin in the ambulance to help with her epi taxis patient states she keeps swallowing blood. She is on a Venturi mask to keep her pulse ox greater than 92%. Patient states the only blood thinner she is on is baby aspirin, was taken off her blood thinners last week. Denies any trauma. Patient states that she is feeling weak, she has not taken any of her medication this morning because she keeps bleeding from her nose. Patient is denying any chest pain. 03/01/20 22:01 - ED Nursing Note by LINDA LENTZ Acct Num: [id number] : 1930 Patient Age: 89 Pt. arrived via EMS, C/O Nose Bleed. Pt. called EMS after not being able to stop the bleeding. Pt. has a HX of an aortic aneurism, that is currently being monitored. Pt. is A & O X3, breathing is even and unlabored. There is still a notable amount of blood draining from the Pt. nose and down her throat. Pt. was placed on cardiac rn and is resting at this time. Initialized on 03/01/20 22:01 - END OF NOTE MY NOTES GREGG 89-year-old female arrives with chief complaint of epistaxis from her right nose for at least 1 hour. Bleeding is partially stopped by the time I initially saw her and completely stopped by 2134. Patient was written for morphine because of abdominal pain that is chronic. Patient reports she usually takes oxycodone for her abdominal pain. She takes aspirin 325 daily. Patient received TXA intranasal prior to arrival. Patient reports this occurred 1 month ago as well. She is scheduled to have EGD to check out her abdominal pain that is chronic. Patient used CPAP tonight as well as nasal O2 which she says is humidified for at least 1 hour. This was prior to her epistaxis event tonight. TRAVEL OUTSIDE OF THE [place] IN LAST 30 DAYS: No - HPI Patient complains to provider of: Swelling Injury to: Nose Occurred: Just prior to arrival Where: Home Timing: Still present - Related Data Allergies/Adverse Reactions: bacitracin [From Neosporin ([id number])] Allergy (Verified 12/02/19 11:25) cephalexin Allergy (Verified 12/02/19 11:25) ciprofloxacin [From Cipro] Allergy (Verified 03/01/20 22:00) desipramine [From Norpramin] Allergy (Verified 03/01/20 22:00) iodine Allergy (Verified 03/01/20 22:00) miconazole [From Neosporin AF] Allergy (Verified 03/01/20 22:00) neomycin [From Neosporin ([id number])] Allergy (Verified 03/01/20 22:00) polymyxin B [From Neosporin ([id number])] Allergy (Verified 03/01/20 22:00) promethazine [From Phenergan] Allergy (Verified 03/01/20 22:00) Sulfa (Sulfonamide Antibiotics) Allergy (Verified 03/01/20 22:00) codeine Adverse Reaction (Verified 03/01/20 22:00) Iodinated Contrast Media [Iodinated Contrast- Oral and IV Dye] Adverse Reaction (Verified 03/01/20 22:00) Past Medical History - General Information source: Patient, Emergency Med Personnel - Social History Smoking Status: Never Smoker Cigarette use (# per day): No Chew tobacco use (# tins/day): No Smoking Education Provided: No Frequency of alcohol use: None Lives with: Family Family History: Arthritis, DM, Hypertension, Malignancy, Other - Denies FMHx of bleeding disorders Patient has suicidal ideation: No Patient has homicidal ideation: No - Past Medical History Cardiac Medical History: Reports: Hx Atrial Fibrillation, Hx Congestive Heart Failure, Hx Coronary Artery Disease - HIGH CHOLESTEROL, Hx Heart Attack, Hx Hypercholesterolemia, Hx Hypertension, 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 Denies: Hx Cirrhosis, Hx Hepatitis Musculoskeletal Medical History: Reports Hx Arthritis, Reports Hx Fibromyalgia Skin Medical History: Denies Hx Eczema, Denies Hx Psoriasis Psychiatric Medical History: Denies: Hx Depression Traumatic Medical History: Reports: Hx Fractures - lumbar spine Infectious Medical History: Denies: Hx Hepatitis Past Surgical History: Reports: Hx Appendectomy, Hx Cardiac Surgery, Hx Hysterectomy, Hx Kidney (Renal Surgery), Hx Orthopedic Surgery - bilateral TKR, L shoulder replacement, Hx Valve Replacement - Mitral valve - Immunizations Hx Diphtheria, Pertussis, Tetanus Vaccination: Yes Hx Pneumococcal Vaccination: 04/06/14 Review of Systems - Review of Systems Constitutional: No symptoms reported EENT: See HPI, Nose congestion, Other - Nosebleed right side Cardiovascular: No symptoms reported Respiratory: No symptoms reported Gastrointestinal: No symptoms reported Genitourinary: No symptoms reported Female Genitourinary: No symptoms reported Musculoskeletal: No symptoms reported Skin: No symptoms reported Hematologic/Lymphatic: No symptoms reported Neurological/Psychological: No symptoms reported Physical Exam - Vital signs Vitals: Temp 98.7 F 03/01/20 20:51 Interpretation: Hypotensive - General General appearance: Appears well, Alert - HEENT Head: Normocephalic, Atraumatic Eyes: Normal Extraocular movements intact: Yes Eyelashes: Normal Pupils: PERRL Ears: Normal External canal: Normal Sinus: Normal Nasal: Bloody discharge - And clot in the right nares. Clot appears to the extent to posterior pharynx. Posterior pharynx was completely cleaned by 2135. Mouth/Lips: Normal Pharynx: Blood in hypopharynx Neck: Normal - Respiratory Respiratory status: No respiratory distress Chest status: Nontender Breath sounds: Normal Chest palpation: Normal - Cardiovascular Rhythm: Regular Heart sounds: Normal auscultation Murmur: No - Abdominal Inspection: Normal Distension: No distension Bowel sounds: Normal Tenderness: Nontender Organomegaly: No organomegaly - Rectal Hemorrhoids: Other - Deferred - Genitourinary [place] exam: Other - Deferred - Back Back: Normal, Nontender - Extremities General upper extremity: Normal inspection, Nontender, Normal color, Normal ROM, Normal temperature General lower extremity: Normal inspection, Nontender, Normal color, Normal ROM, Normal temperature, Normal weight bearing. No: Antonieta's sign - Neurological Neuro grossly intact: Yes Cognition: Normal Orientation: AAOx4 [place] Coma Scale Eye Opening: Spontaneous [place] Coma Scale Verbal: Oriented [place] Coma Scale Motor: Obeys Commands [place] Coma Scale Total: 15 Speech: Normal Motor strength normal: LUE, RUE, LLE, RLE Sensory: Normal - Psychological Associated symptoms: Normal affect, Normal mood - Skin Skin Temperature: Warm Skin Moisture: Dry Skin Color: Normal Course - Vital Signs Vital signs: Temp Pulse Resp BP Pulse Ox 98.7 F 03/01/20 20:51 - Laboratory Result Diagrams: 03/01/20 23:14 03/01/20 23:14 Laboratory results interpreted by me: 03/01/20 03/01/20 23:14 23:14 RBC 3.60 L Hgb 11.8 L Hct 35.8 L MCV 100 H Carbon Dioxide 31 H Creatinine 0.51 L Glucose 127 H Procedures - Nosebleed Procedure Right Time completed: 21:35 Location: Anterior Supplies used: Other - No treatment patient's nosebleed had cessation completely on its own while myself and nursing staff got epistaxis tray out for patient. Critical Care Note - Critical Care Note Comments: Patient advised she would prefer to stay here tonight because of her nosebleed and she is afraid it might restart if she goes home. Nursing staff advised her that since she has been here for 4 hours and has no further nosebleed it is highly unlikely that it may recur but we will keep her here until 06 100 observing her until discharge. Discharge - Discharge Clinical Impression: Acute anterior epistaxis Condition: Stable Disposition: HOME, SELF-CARE Additional Instructions: Follow-up with ENT this week and follow-up with personal doctor this week return to ER as needed take medicines as directed. May apply Bactroban to anterior nose very gently with a Q-tip only in the front of your nose. Do not up attempt to put it posteriorly towards the back of your nose. This will help keep your mucosa moist Prescriptions: Mupirocin [Bactroban 2% Ointment 22 gm] 1 applic NASL HSP PRN #1 tube PRN Reason: Referrals: AMY HERNÁNDEZ MD [Primary Care Provider] - Follow up as needed
[2020-03-01] MEDS ORDERED: OXYCODONE HCL SR 10 MG TABLET PO ONE (23:03)
[2020-03-01 23:36] LABS: ABSOLUTE EOSINOPHILS # (AUTO) 0.1 10^3/uL (0.0-0.6); ABSOLUTE LYMPHOCYTES (AUTO) 0.9 10^3/uL (0.5-4.7); ABSOLUTE MONOCYTES (AUTO) 0.4 10^3/uL (0.1-1.4); BASOPHILS % (AUTO) 0.5 % (0-2); EOSINOPHILS % (AUTO) 1.4 % (0-6); HEMATOCRIT 35.8 % (36.0-47.0); HEMOGLOBIN 11.8 g/dL (12.0-15.5); LYMPHOCYTES % (AUTO) 16.9 % (13-45); MEAN CORPUSCULAR HEMOGLOBIN 32.7 pg (27.0-33.4); MEAN CORPUSCULAR HGB CONC 32.8 g/dL (32.0-36.0); MEAN CORPUSCULAR VOLUME 100 fl (80-97); MONOCYTES % (AUTO) 7.8 % (3-13); PLATELET COUNT 154 10^3/uL (150-450); RED CELL DISTRIBUTION WIDTH 13.8 % (11.5-14.0); SEGMENTED NEUTROPHILS % (AUTO) 73.4 % (42-78); TOTAL CELLS COUNTED % (AUTO) 100 %; WHITE BLOOD COUNT 5.4 10^3/uL (4.0-10.5)
[2020-03-01 23:50] LABS: INTERNATIONAL RATION (INR) 1.01; PROTHROMBIN TIME 13.5 SEC (11.4-15.4)
[2020-03-01 23:51] LABS: PARTIAL THROMBOPLASTIN TIME 33.3 SEC (23.5-35.8)
[2020-03-02] LABS: ALBUMIN 3.9 g/dL (3.5-5.0); ALKALINE PHOSPHATASE 74 U/L (38-126); ANION GAP 6 (5-19); ASPARTATE AMINO TRANSFERASE 22 U/L (14-36); BILIRUBIN,DIRECT 0.2 mg/dL (0.0-0.4); BILIRUBIN,TOTAL 0.4 mg/dL (0.2-1.3); BLOOD UREA NITROGEN 15 mg/dL (7-20); CALCIUM 9.3 mg/dL (8.4-10.2); CARBON DIOXIDE 31 mmol/L (22-30); CHLORIDE 103 mmol/L (98-107); GLUCOSE 127 mg/dL (75-110); POTASSIUM 4.7 mmol/L (3.6-5.0); TOTAL PROTEIN 6.8 g/dL (6.3-8.2)
[2020-03-02] MEDS ORDERED: ALPRAZOLAM 0.5 MG TABLET PO ONE (01:11)
[2020-03-02 08:45] VITALS: BP 102/50
== END 2020-03-02 08:46 | disposition home or self-care (01) ==
LOC: ER 20:51
DX: R04.0 Epistaxis (principal); I48.91 Unspecified atrial fibrillation; I50.9 Heart failure, unspecified; E78.00 Pure hypercholesterolemia, unspecified
CPT/HCPCS: 99284; 96374; 96375; 36415; 85025; 85610; 85730; 80053; A9270 ×2; J2270; J2405; J3490

== ENCOUNTER 2020-03-06 09:45 | Emergency (ER) | payer MEDICARE, BC ==
[2020-03-06] MEDS ORDERED: OXYMETAZOLINE HCL 0.05% NASAL SPRAY 15 ML BOTTLE NASL ONE (09:59)
[2020-03-06 10:31] VITALS: BP 132/68
[2020-03-06] MEDS ORDERED: ACETAMINOPHEN 325 MG TABLET PO ONE (11:04)
[2020-03-06 11:39] LABS: ABSOLUTE EOSINOPHILS # (AUTO) 0.1 10^3/uL (0.0-0.6); ABSOLUTE LYMPHOCYTES (AUTO) 0.7 10^3/uL (0.5-4.7); ABSOLUTE MONOCYTES (AUTO) 0.4 10^3/uL (0.1-1.4); ABSOLUTE NEUT (AUTO) 3.4 10^3/uL (1.7-8.2); BASOPHILS % (AUTO) 0.5 % (0-2); EOSINOPHILS % (AUTO) 1.9 % (0-6); HEMATOCRIT 31.5 % (36.0-47.0); HEMOGLOBIN 10.7 g/dL (12.0-15.5); LYMPHOCYTES % (AUTO) 15.5 % (13-45); MEAN CORPUSCULAR HEMOGLOBIN 33.6 pg (27.0-33.4); MEAN CORPUSCULAR HGB CONC 33.8 g/dL (32.0-36.0); MEAN CORPUSCULAR VOLUME 99 fl (80-97); MONOCYTES % (AUTO) 7.8 % (3-13); PLATELET COUNT 154 10^3/uL (150-450); RED BLOOD COUNT 3.17 10^6/uL (3.72-5.28); SEGMENTED NEUTROPHILS % (AUTO) 74.3 % (42-78); TOTAL CELLS COUNTED % (AUTO) 100 %; WHITE BLOOD COUNT 4.6 10^3/uL (4.0-10.5)
--- NOTE | 2020-03-06 12:26 | ER Document Report ---
ED ENT - General Chief Complaint: Nose Bleed Stated Complaint: NOSE BLEED Time Seen by Provider: 03/06/20 09:54 Primary Care Provider: AMY HERNÁNDEZ MD [Primary Care Provider] - Follow up as needed Information source: Patient TRAVEL OUTSIDE OF THE [place] IN LAST 30 DAYS: No - HPI Notes: Patient presents with a nosebleed from the right nares. She states it started this morning. She denies any trauma. She denies any recent cough cold or congestion. States she has no pain. She has had no recent vomiting or diarrhea. Patient states she did have a nosebleed several days ago and she came to the emergency department. At that time the nosebleed stopped and she did not require any packing. She states she is not currently on a blood thinner. She does not have a history of nosebleeds. - Related Data Allergies/Adverse Reactions: bacitracin [From Neosporin ([id number])] Allergy (Verified 03/06/20 09:58) cephalexin Allergy (Verified 03/06/20 09:58) ciprofloxacin [From Cipro] Allergy (Verified 03/06/20 09:58) desipramine [From Norpramin] Allergy (Verified 03/06/20 09:58) iodine Allergy (Verified 03/06/20 09:58) miconazole [From Neosporin AF] Allergy (Verified 03/06/20 09:58) neomycin [From Neosporin ([id number])] Allergy (Verified 03/06/20 09:58) polymyxin B [From Neosporin ([id number]-tisps)] Allergy (Verified 03/06/20 09:58) promethazine [From Phenergan] Allergy (Verified 03/06/20 09:58) Sulfa (Sulfonamide Antibiotics) Allergy (Verified 03/06/20 09:58) codeine Adverse Reaction (Verified 03/06/20 09:58) Iodinated Contrast Media [Iodinated Contrast- Oral and IV Dye] Adverse Reaction (Verified 03/06/20 09:58) Past Medical History - General Information source: Patient - Social History Smoking Status: Never Smoker Frequency of alcohol use: None Drug Abuse: None Family History: Arthritis, DM, Hypertension, Malignancy, Other - Denies FMHx of bleeding disorders - Past Medical History Cardiac Medical History: Reports: Hx Atrial Fibrillation, Hx Congestive Heart Failure, Hx Coronary Artery Disease - HIGH CHOLESTEROL, Hx Heart Attack, Hx Hype rcholesterolemia, Hx Hypertension, 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 Denies: Hx Cirrhosis, Hx Hepatitis Musculoskeletal Medical History: Reports Hx Arthritis, Reports Hx Fibromyalgia Skin Medical History: Denies Hx Eczema, Denies Hx Psoriasis Psychiatric Medical History: Denies: Hx Depression Traumatic Medical History: Reports: Hx Fractures - lumbar spine Infectious Medical History: Denies: Hx Hepatitis Past Surgical History: Reports: Hx Appendectomy, Hx Cardiac Surgery, Hx Hysterectomy, Hx Kidney (Renal Surgery), Hx Orthopedic Surgery - bilateral TKR, L shoulder replacement, Hx Valve Replacement - Mitral valve - Immunizations Hx Diphtheria, Pertussis, Tetanus Vaccination: Yes Hx Pneumococcal Vaccination: 04/06/14 Review of Systems - Review of Systems Constitutional: denies: Chills, Fever Cardiovascular: denies: Chest pain, Palpitations Respiratory: denies: Cough, Short of breath -: Yes All other systems reviewed and negative Physical Exam - Vital signs Vitals: Temp Pulse Resp BP Pulse Ox 98.4 F 73 16 132/68 H 88 L 03/06/20 10:30 03/06/20 10:30 03/06/20 10:30 03/06/20 10:30 03/06/20 10:30 Interpretation: Hypoxic - General General appearance: Appears well, Alert - HEENT Head: Normocephalic, Atraumatic Eyes: Normal Pupils: PERRL Nasal: Bloody discharge, Epistaxis - right nares - Respiratory Respiratory status: No respiratory distress Chest status: Nontender Breath sounds: Normal Chest palpation: Normal - Cardiovascular Rhythm: Regular Heart sounds: Normal auscultation Murmur: No - Abdominal Inspection: Normal Distension: No distension Bowel sounds: Normal Tenderness: Nontender Organomegaly: No organomegaly - Back Back: Normal, Nontender - Extremities General upper extremity: Normal inspection, Nontender, Normal color, Normal ROM, Normal temperature General lower extremity: Normal inspection, Nontender, Normal color, Normal ROM, Normal temperature, Normal weight bearing. No: Antonieta's sign - Neurological Neuro grossly intact: Yes Cognition: Normal Orientation: AAOx4 [place] Coma Scale Eye Opening: Spontaneous Zenia Coma Scale Verbal: Oriented Zenia Coma Scale Motor: Obeys Commands [place] Coma Scale Total: 15 Speech: Normal Motor strength normal: LUE, RUE, LLE, RLE Sensory: Normal - Psychological Associated symptoms: Normal affect, Normal mood - Skin Skin Temperature: Warm Skin Moisture: Dry Skin Color: Normal Course - Re-evaluation Re-evalutation: 03/06/20 12:21 Patient presents with a nosebleed from the right nares. It was packed successfully without any further bleeding. CBC is stable although there is a one-point drop in hemoglobin from a week ago. I will have the patient have a repeat CBC in 1 week. I will refer the patient to the ear nose and throat doctor. I did personally discussed the case with the ear nose and throat doctor and he states he will see her in approximately 6 days. I will send her home on antibiotics. Patient states she does have a history of hypoxia and does have home oxygen however she is not currently using it. She has been encouraged to use it at 2 L 24 hours a day until she sees her family doctor. - Vital Signs Vital signs: Temp Pulse Resp BP Pulse Ox 98.4 F 73 16 132/68 H 88 L 03/06/20 10:30 03/06/20 10:30 03/06/20 10:30 03/06/20 10:30 03/06/20 10:30 - Laboratory Result Diagrams: 03/06/20 11:25 Laboratory results interpreted by me: 03/06/20 11:25 RBC 3.17 L Hgb 10.7 L Hct 31.5 L MCV 99 H MCH 33.6 H Procedures - Nosebleed Procedure Right Time completed: 11:00 Location: Anterior Supplies used: Rhinorocket Discharge - Discharge Clinical Impression: Anterior epistaxis, Hypoxia Condition: Stable Disposition: HOME, SELF-CARE Instructions: Nosebleed Instructions ([facility]) Additional Instructions: Dr. Brown will see you this coming thursday, Mar.12 at 10am. Please call his office to confirm the appointment. He will take the packing out of your nose at that time. Please have your hemoglobin rechecked in one week by your family doctor. Please wear your oxygen at 2 Liters for 24hours a day until you see your family doctor. Please squirt afrin on the rhinorocket twice each day until you see Dr. Brown. Prescriptions: Doxycycline Hyclate [Vibramycin 100 mg Tablet] 100 mg PO BID 7 Days #14 tablet Referrals: AMY HERNÁNDEZ MD [Primary Care Provider] - Follow up in 1 week SHIN BROWN MD [ACTIVE STAFF] - 03/12/20 10:00 am
== END 2020-03-06 13:11 | disposition home or self-care (01) ==
LOC: ER 09:45
DX: R04.0 Epistaxis (principal); R09.02 Hypoxemia; I11.0 Hypertensive heart disease with heart failure; I50.9 Heart failure, unspecified; I25.10 Atherosclerotic heart disease of native coronary artery without angina pectoris; Z88.8 Allergy status to other drugs, medicaments and biological substances; Z88.2 Allergy status to sulfonamides; Z88.1 Allergy status to other antibiotic agents
CPT/HCPCS: 99283; 36415; 85025; 30901; A9270 ×2; J3490